=== PATIENT | female | born 1965 | race Caucasian/White ===

== ENCOUNTER 2017-02-07 09:44 | Emergency (ER) | payer MEDICARE, OTHER ==
--- NOTE | 2017-02-07 10:19 | ED ---
URI HPI - General Chief Complaint: Upper Respiratory Infection Stated Complaint: sore throat, coughing, chest congestion Time Seen by Provider: 02/07/17 10:07 Source: patient Mode of arrival: ambulatory Limitations: no limitations - History of Present Illness Initial Comments: The patient is a 51-year-old female with a significant history of COPD and pulmonary hypertension who presents with a chief complaint of cough and congestion 3 weeks. Patient was seen by her primary care physician who did not prescribe any medications. Patient returns today for continuation of her symptoms. She cannot identify any inciting incidents. The patient continues to smoke half pack a day. There are no aggravating or alleviating factors. The patient states her symptoms are worse at night when she lays down, as she states that she coughs more. Patient states that her throat is raw from coughing. - Related Data Home Medications Medication Instructions Recorded Confirmed ALPRAZolam 1 mg PO TID PRN 11/17/13 02/07/17 Bisoprol/Hydrochlorothiazide [Ziac 1 tab PO DAILY 11/17/13 02/07/17 10-6.25 MG] FLUoxetine HCL 80 mg PO DAILY 11/17/13 02/07/17 Levothyroxine Sodium [Synthroid] 88 mcg PO DAILY 11/17/13 02/07/17 Methadone [Dolophine] 30 mg PO Q8HR 11/17/13 02/07/17 Simvastatin [Zocor] 20 mg PO QAM 11/17/13 02/07/17 amLODIPine BESYLATE [Norvasc] 10 mg PO DAILY 11/17/13 02/07/17 metFORMIN HCL [Glucophage Xr] 500 mg PO BID 11/17/13 02/07/17 Albuterol Inhaler [Ventolin Hfa 2 puff INHALATION RT-Q6H PRN 04/10/15 02/07/17 Inhaler] Albuterol Nebulized [Ventolin 2.5 mg INHALATION RT-Q4H PRN 04/10/15 02/07/17 Nebulized] Budesonide [Pulmicort Flexhaler] 2 puff INHALATION RT-BID 04/10/15 02/07/17 Cyclobenzaprine [Flexeril] 10 mg PO TID PRN 02/07/17 02/07/17 oxyCODONE HCL/ACETAMINOPHEN 1 tab PO BID 02/07/17 02/07/17 [Percocet 10-325 mg] Previous Rx's Medication Instructions Recorded Azithromycin 250 mg PO DAILY #6 tab 02/07/17 predniSONE 50 mg PO DAILY #5 tablet 02/07/17 Allergies Allergy/AdvReac Type Severity Reaction Status Date / Time No Known Allergies Allergy Verified 02/07/17 10:16 Review of Systems ROS Statement: Those systems with pertinent positive or pertinent negative responses have been documented in the HPI. ROS Other: All systems not noted in ROS Statement are negative. Constitutional: Denies: fever, chills Eyes: Denies: vision change ENT: Reports: throat pain Respiratory: Reports: cough, dyspnea Cardiovascular: Denies: chest pain, dyspnea on exertion Endocrine: Denies: fatigue Gastrointestinal: Reports: vomiting (Posttussive). Denies: abdominal pain, nausea Genitourinary: Denies: dysuria Musculoskeletal: Denies: joint swelling Skin: Denies: rash Neurological: Denies: headache, weakness Past Medical History Past Medical History: Asthma, COPD, Hypertension Additional Past Medical History / Comment(s): pulmonary hypertension History of Any Multi-Drug Resistant Organisms: MRSA Date of last positivie culture/infection: 12/06/15 MDRO Source:: Right Axilla Past Surgical History: Orthopedic Surgery Additional Past Surgical History / Comment(s): tubal pregnancies Past Anesthesia/Blood Transfusion Reactions: No Reported Reaction Past Psychological History: No Psychological Hx Reported Smoking Status: Current every day smoker Past Alcohol Use History: None Reported Past Drug Use History: None Reported - Past Family History Sister(s) Family Medical History: Deep Vein Thrombosis (DVT) Father History Unknown: Yes Family Medical History: Coronary Artery Disease (CAD), CVA/TIA Mother History Unknown: Yes General Exam Limitations: no limitations General appearance: alert, in no apparent distress Head exam: Present: atraumatic, normocephalic Eye exam: Present: normal appearance ENT exam: Present: normal exam, mucous membranes moist, other (Patient has postnasal drip and erythema in the oropharynx. There are no tonsillar exudates or plaques.) Respiratory exam: Present: normal lung sounds bilaterally (There are no wheezes present, COPD is not likely active. There is good air movement throughout all lung powell) Cardiovascular Exam: Present: regular rate, normal rhythm, normal heart sounds GI/Abdominal exam: Present: soft. Absent: distended, tenderness Rectal exam: Present: deferred Extremities exam: Present: normal inspection Neurological exam: Present: alert, oriented X3, CN II-XII intact, normal gait Psychiatric exam: Present: normal affect, normal mood Skin exam: Present: warm, dry, intact Course Vital Signs 02/07/17 09:56 Temperature 97.0 F L Pulse Rate 83 Respiratory 20 Rate Blood Pressure 122/85 O2 Sat by Pulse 97 Oximetry Medical Decision Making - Medical Decision Making Patient presents with a chief complaint of cough and congestion 3 weeks. Patient has a significant history of COPD, and pulmonary hypertension. At this time, patient admits to a change in sputum color, she states it is now green. Given the duration of symptoms, the patient will be sent for a chest x-ray. On initial evaluation, vital signs are stable, patient does not admit to any exertional shortness of breath or chest pain. 11:05 AM Chest x-ray shows a left lung opacity that may reflect old scarring, atelectasis or possible pneumonia. Given lack of constitutional symptoms, I think this is less likely pneumonia however I instructed the patient that she should follow-up on this finding with a repeat x-ray in 6 weeks. At this time, patient is stable for discharge. All of her questions are answered to the best of my ability, she was prescribed a Z-Regis, prednisone for 5 days. She is instructed to follow up with primary care, or to return to the emergency department if her symptoms worsen or change in anyway. Disposition Clinical Impression: Bronchitis Disposition: HOME SELF-CARE Condition: Good Instructions: Upper Respiratory Infection (ED) Prescriptions: Azithromycin 250 mg PO DAILY #6 tab predniSONE 50 mg PO DAILY #5 tablet Referrals: Shahid Alamo MD [Primary Care Provider] - 1-2 days
--- NOTE | 2017-02-07 10:45 | XR ---
EXAMINATION TYPE: XR chest 2V DATE OF EXAM: 02/07/2017 COMPARISON: Prior chest x-ray 04/10/2015 HISTORY: Cough, pain, hypertension TECHNIQUE: Frontal and lateral views of the chest are obtained. FINDINGS: Patient is rotated toward the right. No pneumothorax, or pleural effusion. Some improvemen t in aeration noted at the left lung base. The heart is enlarged. Postop change noted to the left april ulder. IMPRESSION: Findings in the left lung base may be residual from prior inflammatory change, there may be scarring, atelectasis, correlate to exclude pneumonia. Follow-up is recommended. Heart size may b e accentuated by rotation.
[2017-02-07 11:19] VITALS: BP 129/60; PULSE 82; TEMP 98.3
[2017-02-07 11:20] VITALS: RESP 20
== END 2017-02-07 11:21 | disposition home or self-care (01) ==
LOC: EC 09:44
DX: J44.9 Chronic obstructive pulmonary disease, unspecified (principal); I10 Essential (primary) hypertension; F17.200 Nicotine dependence, unspecified, uncomplicated; Z86.14 Personal history of Methicillin resistant Staphylococcus aureus infection; Z79.84 Long term (current) use of oral hypoglycemic drugs; Z79.51 Long term (current) use of inhaled steroids; Z79.899 Other long term (current) drug therapy
CPT/HCPCS: 71020; 99283

== ENCOUNTER 2017-09-08 10:28 | Emergency (ER) | payer MEDICARE, OTHER ==
[2017-09-08 10:47] VITALS: BP 124/77; PULSE 77; RESP 16; TEMP 98.2
--- NOTE | 2017-09-08 11:15 | ED ---
General Adult HPI - General Chief complaint: Skin/Abscess/Foreign Body Stated complaint: Eye swelling, poss spider bite Time Seen by Provider: 09/08/17 10:49 Source: patient, RN notes reviewed Mode of arrival: ambulatory Limitations: no limitations - History of Present Illness Initial comments: Patient 52-year-old female presenting to the emergency room today with a chief complaint of abscess located to the forehead. Patient does admit that she was plucking her eyebrows and the other day. Noticed some redness locally to the forehead area and now over the left eye today. Denies any other complaints or symptoms. Patient denies any recent fever, chills, shortness of breath, chest pain, back pain, abdominal pain, nausea or vomiting, numbness or tingling, headaches or visual changes, or any other complaints. - Related Data Home Medications Medication Instructions Recorded Confirmed ALPRAZolam 1 mg PO TID PRN 11/17/13 03/07/17 Bisoprol/Hydrochlorothiazide [Ziac 1 tab PO DAILY 11/17/13 03/07/17 10-6.25 MG] FLUoxetine HCL 80 mg PO DAILY 11/17/13 03/07/17 Levothyroxine Sodium [Synthroid] 88 mcg PO DAILY 11/17/13 03/07/17 Methadone [Dolophine] 30 mg PO Q8HR 11/17/13 03/07/17 Simvastatin [Zocor] 20 mg PO QAM 11/17/13 03/07/17 amLODIPine BESYLATE [Norvasc] 10 mg PO DAILY 11/17/13 03/07/17 metFORMIN HCL [Glucophage Xr] 500 mg PO BID 11/17/13 03/07/17 Albuterol Inhaler [Ventolin Hfa 2 puff INHALATION RT-Q6H PRN 04/10/15 03/07/17 Inhaler] Albuterol Nebulized [Ventolin 2.5 mg INHALATION RT-Q4H PRN 04/10/15 03/07/17 Nebulized] Budesonide [Pulmicort Flexhaler] 2 puff INHALATION RT-BID 04/10/15 03/07/17 Cyclobenzaprine [Flexeril] 10 mg PO TID PRN 02/07/17 03/07/17 oxyCODONE HCL/ACETAMINOPHEN 1 tab PO BID 02/07/17 03/07/17 [Percocet 10-325 mg] Previous Rx's Medication Instructions Recorded Levofloxacin [Levaquin] 750 mg PO DAILY #10 tab 03/07/17 Sulfamethox-Tmp 800-160Mg [Bactrim 1 tab PO Q12HR #20 tab 09/08/17 DS 800-160 mg] Allergies Allergy/AdvReac Type Severity Reaction Status Date / Time No Known Allergies Allergy Verified 09/08/17 10:47 Review of Systems ROS Statement: Those systems with pertinent positive or pertinent negative responses have been documented in the HPI. ROS Other: All systems not noted in ROS Statement are negative. Past Medical History Past Medical History: Asthma, COPD, Hypertension, Thyroid Disorder Additional Past Medical History / Comment(s): pulmonary hypertension, emphysema History of Any Multi-Drug Resistant Organisms: MRSA Date of last positivie culture/infection: 12/06/15 MDRO Source:: Right Axilla Past Surgical History: Orthopedic Surgery Additional Past Surgical History / Comment(s): tubal pregnancies Past Anesthesia/Blood Transfusion Reactions: No Reported Reaction Past Psychological History: Anxiety, Depression Smoking Status: Current every day smoker Past Alcohol Use History: None Reported Past Drug Use History: None Reported - Past Family History Sister(s) Family Medical History: Deep Vein Thrombosis (DVT) Father History Unknown: Yes Family Medical History: Coronary Artery Disease (CAD), CVA/TIA Mother History Unknown: Yes General Exam - General Exam Comments Initial Comments: General: The patient is awake and alert, in no distress, and does not appear acutely ill. Eye: Pupils are equal, round and reactive to light, extra-ocular movements are intact. No nystagmus. There is normal conjunctiva bilaterally. No signs of icterus. Ears, nose, mouth and throat: There are moist mucous membranes and no oral lesions. Neck: The neck is supple, there is no tenderness or JVD. Musculoskeletal: Normal ROM, no tenderness. Strength 5/5. Sensation intact. Pulses equal bilaterally 2+. Neurological: A&O x 3. CN II-XII intact, There are no obvious motor or sensory deficits. Coordination appears grossly intact. Speech is normal. Skin: Patient does have small abscess located to the middle forehead. There is mild swelling above the left eye. No fluctuant head. Scabbed area centrally. Psychiatric: Cooperative, appropriate mood & affect, normal judgment. Limitations: no limitations Course Vital Signs 09/08/17 10:44 Temperature 98.2 F Pulse Rate 77 Respiratory 16 Rate Blood Pressure 124/77 O2 Sat by Pulse 95 Oximetry Medical Decision Making - Medical Decision Making 52-year-old female presenting to the emergency room for abscess to the middle forehead. No tenderness with extraocular eye movements. Patient be started on antibiotics. Advised to use warm compresses. Advised return to emergency room for new concerns. Disposition Clinical Impression: Abscess Disposition: HOME SELF-CARE Condition: Good Instructions: Abscess (ED) Additional Instructions: Please use warm compresses to the affected area. Please use antibiotic as prescribed. Please return to emergency room symptoms increase or worsen or for any other concerns as discussed. Prescriptions: Sulfamethox-Tmp 800-160Mg [Bactrim DS 800-160 mg] 1 tab PO Q12HR #20 tab Is patient prescribed a controlled substance at d/c from ED?: No Referrals: Shahid Alamo MD [Primary Care Provider] - 1-2 days Time of Disposition: 11:14
== END 2017-09-08 11:44 | disposition home or self-care (01) ==
LOC: EC 10:28
DX: L02.01 Cutaneous abscess of face (principal); J44.9 Chronic obstructive pulmonary disease, unspecified; I10 Essential (primary) hypertension; I27.20 Pulmonary hypertension, unspecified; E07.9 Disorder of thyroid, unspecified; F32.9 Major depressive disorder, single episode, unspecified; F17.200 Nicotine dependence, unspecified, uncomplicated; Z86.14 Personal history of Methicillin resistant Staphylococcus aureus infection; Z79.891 Long term (current) use of opiate analgesic; Z79.84 Long term (current) use of oral hypoglycemic drugs; Z79.51 Long term (current) use of inhaled steroids
CPT/HCPCS: 99282

== ENCOUNTER → 2017-10-30 | Outpatient (CLI) | payer MEDICARE, OTHER ==
--- NOTE | 2017-10-31 14:14 | MM ---
Reason for exam: screening (asymptomatic). Last mammogram was performed 2 years and 3 months ago. History: Patient is postmenopausal. Took hormonal contraceptives for 5 years beginning at age 15. Physical Findings: A clinical breast exam by your physician is recommended on an annual basis and results should be correlated with mammographic findings. MG 3D Screening Mammo W/Cad Bilateral CC and MLO view(s) were taken. Prior study comparison: July 28, 2015, bilateral MG 3d diag mammo w/cad PENNY. There are scattered fibroglandular densities. Finding: There are typically benign round calcifications in the right breast. Asymmetric breast tissue in the left breast, stable. There is no discrete abnormality. ASSESSMENT: Benign, BI-RAD 2 RECOMMENDATION: Routine screening mammogram of both breasts in 1 year.
== END | disposition home or self-care (01) ==
LOC: RADMAMWWP 13:09
PROVIDERS: ATTEND Family Medicine
DX: Z12.31 Encounter for screening mammogram for malignant neoplasm of breast (principal)
CPT/HCPCS: 77063; 77067

== ENCOUNTER → 2018-05-15 | Outpatient (CLI) | payer MEDICARE, OTHER ==
--- NOTE | 2018-05-15 14:52 | MR ---
EXAMINATION TYPE: MR lumbar spine wo con DATE OF EXAM: 05/15/2018 COMPARISON: NONE HISTORY: Disc degeneration, Fall, Pain TECHNIQUE: T1 and T2 axial and sagittal images of the lumbar spine are submitted. FINDINGS: There is no abnormal signal seen within the visualized spinal cord or paraspinal soft tissu es. Atrophy of the paraspinal musculature noted. At T12-L1 no disc herniation or canal stenosis. No foraminal encroachment. At L1-2 there is there is degenerative disc disease. Minimal disc bulging but no focal herniation or canal stenosis. Mild facet arthropathy. No foraminal encroachment. At L2-3 there is severe degenerative disc disease with diffuse disc protrusion greater paracentrally and laterally to the left with moderate left foraminal encroachment and mild right foraminal encroach ment. Hypertrophic change facets contribute to mild central stenosis. At L3-4 there is facet arthropathy and broad-based central disc bulging. No Canal stenosis. Mild bila teral foraminal encroachment. At L4-5 there is mild to moderate degenerative disc disease with hypertrophic change of the facets an d ligamentum flavum. Circumferential disc bulging with borderline central stenosis and mild bilateral foraminal encroachment. At L5-S1 there is severe degenerative disc disease. There is facet arthropathy. There is mild bilater al foraminal encroachment. No discrete herniation or canal stenosis. IMPRESSION: 1. Multilevel degenerative disc disease and disc bulging with most marked findings at L2-L3. Disc bul ging or protrusion is most pronounced greater laterally to the left with moderate left foraminal encr oachment and mild right foraminal encroachment. There is mild central stenosis. 2. Mild to moderate degenerative disc disease and hypertrophic changes L4-L5 with disc bulging and ana rderline central stenosis. Mild bilateral foraminal encroachment. 3. Multilevel facet arthropathy.
== END | disposition home or self-care (01) ==
LOC: RADMRIMAIN 11:48
PROVIDERS: ATTEND Physician Assistant
DX: M48.061 Spinal stenosis, lumbar region without neurogenic claudication (principal); M51.26 Other intervertebral disc displacement, lumbar region; M51.36 Other intervertebral disc degeneration, lumbar region; M46.96 Unspecified inflammatory spondylopathy, lumbar region
CPT/HCPCS: 72148

== ENCOUNTER 2019-12-26 12:15 | Emergency (ER) | payer MEDICARE, OTHER ==
[2019-12-26 12:22] VITALS: BP 109/85; PULSE 115; RESP 20; TEMP 97.9
[2019-12-26] MEDS ORDERED: LIDOCAINE 1% INJ 10MG/ML (20 ML MDV) SQ ONE (12:29)
[2019-12-26] MEDS ORDERED: ACET/COD 300 MG/30 MG STARTER PACK 6 TAB BTL PO STA (12:56)
[2019-12-26] MEDS ORDERED: SULFAMETH-TMP DS STARTER PACK 2 TAB BTL PO STA (12:56)
--- NOTE | 2019-12-26 13:00 | ED ---
General Adult HPI - General Chief complaint: Skin/Abscess/Foreign Body Stated complaint: Arm Abcess Time Seen by Provider: 12/26/19 12:24 Source: patient, RN notes reviewed, old records reviewed Mode of arrival: ambulatory Limitations: no limitations - History of Present Illness Initial comments: Patient's 54-year-old female with a history of hydradenitis per edema. She presents emergency room today with 2 weeks of left axilla abscess. She's not been on antibiotics. It has not been draining at this time. She states she's previously had have his abscess was incised and drained. She denies any fevers or chills. - Related Data Home Medications Medication Instructions Recorded Confirmed ALPRAZolam 1 mg PO TID PRN 11/17/13 03/07/17 Bisoprol/Hydrochlorothiazide [Ziac 1 tab PO DAILY 11/17/13 03/07/17 10-6.25 MG] FLUoxetine HCL 80 mg PO DAILY 11/17/13 03/07/17 Levothyroxine Sodium [Synthroid] 88 mcg PO DAILY 11/17/13 03/07/17 Methadone [Dolophine] 30 mg PO Q8HR 11/17/13 03/07/17 Simvastatin [Zocor] 20 mg PO QAM 11/17/13 03/07/17 amLODIPine BESYLATE [Norvasc] 10 mg PO DAILY 11/17/13 03/07/17 metFORMIN HCL [Glucophage Xr] 500 mg PO BID 11/17/13 03/07/17 Albuterol Inhaler (Mhu) [Ventolin 2 puff INHALATION RT-Q6H PRN 04/10/15 03/07/17 Hfa Inhaler (Mhu)] Albuterol Nebulized [Ventolin 2.5 mg INHALATION RT-Q4H PRN 04/10/15 03/07/17 Nebulized] Budesonide [Pulmicort Flexhaler] 2 puff INHALATION RT-BID 04/10/15 03/07/17 Cyclobenzaprine [Flexeril] 10 mg PO TID PRN 02/07/17 03/07/17 oxyCODONE HCL/ACETAMINOPHEN 1 tab PO BID 02/07/17 03/07/17 [Percocet 10-325 mg] Previous Rx's Medication Instructions Recorded Levofloxacin [Levaquin] 750 mg PO DAILY #10 tab 03/07/17 Sulfamethox-Tmp 800-160Mg [Bactrim 1 tab PO Q12HR #20 tab 09/08/17 DS 800-160 mg] Acetaminophen-Codeine 300-30mg 1 tab PO Q6H PRN 3 Days #12 tablet 12/26/19 [Tylenol w/codeine #3] Sulfamethox-Tmp 800-160Mg [Bactrim 2 tab PO Q12HR #40 tab 12/26/19 DS 800-160 mg] Allergies Allergy/AdvReac Type Severity Reaction Status Date / Time No Known Allergies Allergy Verified 12/26/19 12:23 Review of Systems ROS Statement: Those systems with pertinent positive or pertinent negative responses have been documented in the HPI. ROS Other: All systems not noted in ROS Statement are negative. Past Medical History Past Medical History: Asthma, COPD, Hypertension, Thyroid Disorder Additional Past Medical History / Comment(s): pulmonary hypertension, emphysema History of Any Multi-Drug Resistant Organisms: MRSA Date of last positivie culture/infection: 12/06/15 MDRO Source:: Right Axilla Past Surgical History: Orthopedic Surgery Additional Past Surgical History / Comment(s): tubal pregnancies Past Anesthesia/Blood Transfusion Reactions: No Reported Reaction Past Psychological History: Anxiety, Depression Smoking Status: Current every day smoker Past Alcohol Use History: None Reported Past Drug Use History: None Reported - Past Family History Sister(s) Family Medical History: Deep Vein Thrombosis (DVT) Father History Unknown: Yes Family Medical History: Coronary Artery Disease (CAD), CVA/TIA Mother History Unknown: Yes General Exam - General Exam Comments Initial Comments: Alert and oriented 54-year-old female. No significant distress. Limitations: no limitations General appearance: alert, in no apparent distress Head exam: Present: atraumatic, normocephalic, normal inspection Eye exam: Present: normal appearance, PERRL, EOMI. Absent: scleral icterus, conjunctival injection, periorbital swelling ENT exam: Present: normal exam, mucous membranes moist Neck exam: Present: normal inspection. Absent: tenderness, meningismus, lymphadenopathy Respiratory exam: Present: normal lung sounds bilaterally. Absent: respiratory distress, wheezes, rales, rhonchi, stridor Cardiovascular Exam: Present: regular rate, normal rhythm, normal heart sounds. Absent: systolic murmur, diastolic murmur, rubs, gallop, clicks GI/Abdominal exam: Present: soft, normal bowel sounds. Absent: distended, t enderness, guarding, rebound, rigid Extremities exam: Present: normal inspection, full ROM, normal capillary refill, other (Patient has a palpable 4 cm abscess over the left axilla, fluctuance at the center.). Absent: tenderness, pedal edema, joint swelling, calf tenderness Back exam: Present: normal inspection, full ROM Neurological exam: Present: alert, oriented X3, CN II-XII intact Psychiatric exam: Present: normal affect, normal mood Skin exam: Present: warm, dry, intact, normal color. Absent: rash Course Vital Signs 12/26/19 12:20 Temperature 97.9 F Pulse Rate 115 H Respiratory 20 Rate Blood Pressure 109/85 O2 Sat by Pulse 97 Oximetry Procedures - Incision & Drainage Indication: abscess Site: other (left axilla) Size (cm): 4 Anesthetic Used: lidocaine 1% Amount (mLs): 10 I&D Cleaning Method: Iodine Sterile Field Used?: Yes Scalpel Used: #11 I&D Drainage Obtained: Pus, Blood Packing: Iodoform Culture Obtained?: Yes Patient Tolerated Procedure: well, no complications Medical Decision Making - Medical Decision Making Patient is a 54-year-old female presents return today for abscess of her left axilla for the past 2 weeks. Patient had incision and drainage partially 10 mL of renal fluid was removed and pockets were loculated. The wound was packed with iodoform. Wound culture obtained. Patient started on Bactrim and given a short course of pain medication. Discussed falling up with PCP for wound care management have the drain removed in 2 days to 3. Disposition Clinical Impression: Abscess of left axilla Disposition: HOME SELF-CARE Condition: Good Instructions (If sedation given, give patient instructions): Abscess Incision and Drainage (ED) Additional Instructions: Follow-up with PCP to have recheck on Sunday to have the drainage and packing removed. Take antibiotics as prescribed. Return to ED if any alarming signs or symptoms occur. Prescriptions: Sulfamethox-Tmp 800-160Mg [Bactrim DS 800-160 mg] 2 tab PO Q12HR #40 tab Acetaminophen-Codeine 300-30mg [Tylenol w/codeine #3] 1 tab PO Q6H PRN 3 Days #12 tablet PRN Reason: Pain Is patient prescribed a controlled substance at d/c from ED?: Yes If prescribed controlled substance>3 days was MAPS reviewed?: Prescribed <3 Days If opioid is for acute pain is fill amount 7 days or less?: Yes If Rx opioid, was Start Talking consent form obtained?: Yes Referrals: Shahid Alamo MD [Primary Care Provider] - 1-2 days Time of Disposition: 12:57
== END 2019-12-26 13:06 | disposition home or self-care (01) ==
LOC: EC 12:15
DX: L02.412 Cutaneous abscess of left axilla (principal); I10 Essential (primary) hypertension; J44.9 Chronic obstructive pulmonary disease, unspecified; E07.9 Disorder of thyroid, unspecified; F41.9 Anxiety disorder, unspecified; F32.9 Major depressive disorder, single episode, unspecified; F17.200 Nicotine dependence, unspecified, uncomplicated; Z79.51 Long term (current) use of inhaled steroids; Z79.899 Other long term (current) drug therapy; Z79.890 Hormone replacement therapy; Z79.84 Long term (current) use of oral hypoglycemic drugs
CPT/HCPCS: 87070; 87205; 99283; 10060; J2001

== ENCOUNTER → 2021-03-15 | Outpatient (CLI) | payer MEDICARE, OTHER ==
--- NOTE | 2021-03-15 09:06 | CT ---
EXAMINATION TYPE: CT brain wo con DATE OF EXAM: 03/15/2021 COMPARISON: None HISTORY: 55-year-old female R55, Fall with LOC x 2 within the last 10 days TECHNIQUE: Examination was done in axial plane without intravenous contrast. Coronal and sagittal r econstructions performed. CT DLP: 961.00 mGycm Automated exposure control for dose reduction was used. FINDINGS: There is no evidence of acute intracranial hemorrhage, acute ischemic changes, mass, mass-effect, or extra-axial fluid collection. There is no effacement of cerebral sulci or basal subarachnoid cister ns. There is no midline shift. Rodriguez-white matter distinction is preserved. Old lacunar infarcts in the bilateral caudate heads and also anterior basal ganglia on both sides. Mild ventricular prominence likely secondary to central atrophy. Mild patchy white matter hypodensities in the periventricular deep white matter regions of both hemis pheres. Mild mucosal thickening posterior wall of right sphenoid sinus. Otherwise, visualized paranasal sinus es and mastoid air cells well pneumatized. Orbits and globes are intact. IMPRESSION: 1. Mild central cerebral atrophy and moderate burden of chronic small vessel ischemic disease. Old la cunar infarcts in the bilateral basal ganglia. 2. No acute intracranial abnormality seen.
== END | disposition home or self-care (01) ==
LOC: RADCTMAIN 06:54
PROVIDERS: ATTEND Internal Medicine
DX: I67.82 Cerebral ischemia (principal); G31.9 Degenerative disease of nervous system, unspecified; W19.XXXA Unspecified fall, initial encounter
CPT/HCPCS: 70450

== ENCOUNTER → 2021-06-28 | Outpatient (CLI) | payer MEDICARE, OTHER ==
--- NOTE | 2021-06-28 17:52 | US ---
EXAMINATION TYPE: US carotid duplex BILAT DATE OF EXAM: 06/28/2021 COMPARISON: NONE CLINICAL HISTORY: 55-year-old female Z86.73 personal hx of TIA. Hx of stroke. Current smoker. Hx hype rtension, dizziness. TECHNIQUE: Carotid duplex ultrasound examination. Indirect Doppler criteria was utilized. FINDINGS: EXAM MEASUREMENTS: RIGHT: Peak Systolic Velocity (PSV) cm/sec ----- Right CCA: 70.7 ----- Right ICA: 86.6 ----- Right ECA: 84.9 ICA/CCA ratio: 1.2 RIGHT: End Diastole cm/sec ----- Right CCA: 22.3 ----- Right ICA: 30.8 ----- Right ECA: 20.3 LEFT: Peak Systolic Velocity (PSV) cm/sec ----- Left CCA: 87.5 ----- Left ICA: 123.3 ----- Left ECA: 130.2 ICA/CCA ratio: 1.4 LEFT: End Diastole cm/sec ----- Left CCA: 20.3 ----- Left ICA: 37.9 ----- Left ECA: 11.0 VERTEBRALS (direction of flow): Right Vertebral: Antegrade Left Vertebral: Antegrade Rhythm: Arrhythmia Keg Inspector notes: Plaque seen within bilateral bulbs and prox bifurcations. Left ICA appears to be t ortuous, limited evaluation. Slightly elevated velocity within left ECA. Incidental finding: heterogeneous right thyroid lobe. IMPRESSION: Moderate atherosclerotic change at both bifurcations. No hemodynamically significant internal carotid artery stenosis on either side. Note that the scallop cutter machine indicates encountering a nonregular cardiac rhythm. Clinically correlate. Criteria for Assigning % of Stenosis / Diameter reduction (Estimation based on the indirect measurements of the internal carotid artery velocities (ICA PSV). 1. Normal (no stenosis)=ICA PSV < 125 cm/s: ratio < 2.0: ICA EDV<40 cm/s. 2. Less than 50% stenosis=ICA PSV < 125 cm/s: ratio < 2.0: ICA EDV<40 cm/s. 3. 50 to 69% stenosis=ICA PSV of 125 to 230 cm/s: ration 2.0 ? 4.0: ICA EDV 40-100 cm/s. 4. Greater than 70% stenosis to near occlusion= ICA PSV > 230 cm/s: ratio > 4.0: ICA EDV > 100 cm/s. 5. Near occlusion= ICA PSV velocities may be low or undetectable: variable ratio and ICA EDV. 6. Total occlusion=unable to detect flow.
== END | disposition home or self-care (01) ==
LOC: RADUSWWP 13:02
PROVIDERS: ATTEND Psychiatry & Neurology Neurology
DX: I65.23 Occlusion and stenosis of bilateral carotid arteries (principal); Z86.73 Personal history of transient ischemic attack (TIA), and cerebral infarction without residual deficits
CPT/HCPCS: 93880

== ENCOUNTER 2021-11-29 12:02 | Inpatient (IN) | payer MEDICARE, OTHER ==
[2021-11-29] MEDS ORDERED: IPRATROPIUM-ALBUTEROL 3 ML NEB INHALATION STA (12:37)
--- NOTE | 2021-11-29 12:50 | XR ---
EXAMINATION TYPE: XR chest 2V DATE OF EXAM: 11/29/2021 COMPARISON: Chest x-ray 03/07/2017 HISTORY: Difficulty breathing, hemoptysis TECHNIQUE: Frontal and lateral views of the chest are obtained. FINDINGS: There is prominence of the central vascularity, abnormal density present at the right lung base obscures right hemidiaphragm. Patient is rotated. No evident pneumothorax. Difficult to exclud e minimal effusion. The cardiac silhouette size is enlarged. Perihilar vascular indistinctness is no cele. The osseous structures are intact, postop change noted to the left shoulder. There are overlying leads. IMPRESSION: Correlate for possible congestive heart failure, pulmonary venous hypertension and early interstitial edema. Pneumonia not excluded. Follow-up is recommended.
[2021-11-29 12:53] LABS: Anisocytosis Slight; Basophils # (A) 0.1 k/uL (0-0.2); Basophils % (A) 1 %; Eosinophils # (A) 0.1 k/uL (0-0.7); Eosinophils % (A) 1 %; HCT 46.3 % (34.0-46.0); HGB 13.6 gm/dL (11.4-16.0); Hypochromasia Marked; Lymphocytes # (A) 1.3 k/uL (1.0-4.8); Lymphocytes % (A) 11 %; MCH 26.1 pg (25.0-35.0); MCHC 29.5 g/dL (31.0-37.0); MCV 88.7 fL (80.0-100.0); Mean Platelet Volume 7.6; Monocytes # (A) 0.8 k/uL (0-1.0); Monocytes % (A) 7 %; Neutrophils # (A) 9.6 k/uL (1.3-7.7); Neutrophils % (A) 79 %; Platelet Count 289 k/uL (150-450); RBC 5.22 m/uL (3.80-5.40); RDW 16.9 % (11.5-15.5)
--- NOTE | 2021-11-29 13:14 | ED ---
SOB HPI - General Chief Complaint: Shortness of Breath Stated Complaint: KVNG Time Seen by Provider: 11/29/21 12:15 Source: patient Mode of arrival: wheelchair - History of Present Illness Initial Comments: 56-year-old female with past medical history of pulmonary fibrosis, COPD, hyp ertension presents to the emergency department with swelling with shortness of breath and swelling all over. States that his been going on for the past several weeks. She saw her primary care office who gave her antibiotics and steroids. We originally started helping her symptoms however now worse. 2 days ago she started coughing up bright red blood clots. Denies history of DVT or PE. No cardiac history. No history of any cardiac arrhythmias including A. fib. Is not on any anticoagulation. No fevers. No sick contacts. No other alleviating, precipitating or modifying factors - Related Data Home Medications Medication Instructions Recorded Confirmed ALPRAZolam 1 mg PO TID PRN 11/17/13 11/29/21 Bisoprolol/Hydrochlorothiazide 1 tab PO DAILY 11/17/13 11/29/21 [Ziac 10-6.25 MG] Albuterol Inhaler [Ventolin Hfa 2 puff INHALATION RT-Q6H PRN 04/10/15 11/29/21 Inhaler] Albuterol Nebulized [Ventolin 2.5 mg INHALATION RT-Q4H PRN 04/10/15 11/29/21 Nebulized] ARIPiprazole 5 mg PO DAILY 11/29/21 11/29/21 Fluticasone/Umeclidin/Vilanter 1 puff INHALATION RT-DAILY 11/29/21 11/29/21 [Treleamy Ellipta 100-62.5-25] Furosemide [Lasix] 20 mg PO AC-BID 11/29/21 11/29/21 Levothyroxine Sodium [Levo-T] 37.5 mcg PO DAILY 11/29/21 11/29/21 Levothyroxine Sodium [Synthroid] 50 mcg PO DAILY 11/29/21 11/29/21 Omeprazole [PriLOSEC] 20 mg PO BID 11/29/21 11/29/21 Potassium Chloride [Potassium 10 meq PO BID 11/29/21 11/29/21 Chloride ER] Topiramate [Topamax] 25 mg PO BID 11/29/21 11/29/21 Topiramate [Topamax] 50 mg PO BID 11/29/21 11/29/21 lamoTRIgine 200 mg PO DAILY 11/29/21 11/29/21 modafiniL [Provigil] 200 mg PO DAILY 11/29/21 11/29/21 rOPINIRole HCL [Requip] 0.5 mg PO HS 11/29/21 11/29/21 Previous Rx's Medication Instructions Recorded Apixaban [Eliquis] 5 mg PO BID 30 Days #70 tab 12/01/21 Allergies Allergy/AdvReac Type Severity Reaction Status Date / Time No Known Allergies Allergy Verified 11/29/21 13:05 Review of Systems ROS Statement: Those systems with pertinent positive or pertinent negative responses have been documented in the HPI. ROS Other: All systems not noted in ROS Statement are negative. Past Medical History Past Medical History: Asthma, COPD, Hypertension, Thyroid Disorder Additional Past Medical History / Comment(s): pulmonary hypertension, emphysema History of Any Multi-Drug Resistant Organisms: MRSA Date of last positivie culture/infection: 12/26/19 MDRO Source:: TISSUE Past Surgical History: Orthopedic Surgery Additional Past Surgical History / Comment(s): tubal pregnancies Past Anesthesia/Blood Transfusion Reactions: No Reported Reaction Past Psychological History: Anxiety, Depression Smoking Status: Current every day smoker Past Alcohol Use History: None Reported Past Drug Use History: None Reported - Past Family History Sister(s) Family Medical History: Deep Vein Thrombosis (DVT) Father History Unknown: Yes Family Medical History: Coronary Artery Disease (CAD), CVA/TIA Mother History Unknown: Yes General Exam General appearance: alert, anxious, other (pale, mottled, diaphoretic) Head exam: Present: atraumatic, normocephalic, normal inspection Eye exam: Present: normal appearance, PERRL, EOMI. Absent: scleral icterus, conjunctival injection, periorbital swelling ENT exam: Present: normal exam, mucous membranes moist Neck exam: Present: normal inspection. Absent: tenderness, meningismus, lymphadenopathy Respiratory exam: Present: wheezes, accessory muscle use, other (tachypnia). Absent: respiratory distress, rales, rhonchi, stridor Cardiovascular Exam: Present: tachycardia, irregular rhythm, normal heart sounds. Absent: systolic murmur, diastolic murmur, rubs, gallop, clicks GI/Abdominal exam: Present: soft, normal bowel sounds. Absent: distended, tenderness, guarding, rebound, rigid Extremities exam: Present: normal inspection, full ROM, normal capillary refill. Absent: tenderness, pedal edema, joint swelling, calf tenderness Back exam: Present: normal inspection Neurological exam: Present: alert, oriented X3, CN II-XII intact Psychiatric exam: Present: normal affect, anxious Skin exam: Present: diaphoretic, pallor, mottled. Absent: rash Course Vital Signs 11/29/21 11/29/21 11/29/21 12:09 13:06 13:14 Temperature 99 F Pulse Rate 68 138 H 147 H Pulse Rate [ Pulse Oximetery ] Respiratory 20 26 H 18 Rate Blood Pressure 137/87 Blood Pressure [Left Arm] O2 Sat by Pulse 95 Oximetry 11/29/21 11/29/21 11/29/21 14:09 15:52 16:00 Temperature Pulse Rate 102 H 106 H Pulse Rate [ 110 H Pulse Oximetery ] Respiratory 22 22 Rate Blood Pressure 135/98 Blood Pressure [Left Arm] O2 Sat by Pulse 97 Oximetry 11/29/21 11/29/21 11/29/21 16:04 16:30 16:33 Temperature 99.7 F H Pulse Rate 104 H 104 H Pulse Rate [ Pulse Oximetery ] Respiratory 22 24 15 Rate Blood Pressure Blood Pressure 166/102 [Left Arm] O2 Sat by Pulse 96 Oximetry - Reevaluation(s) Reevaluation #1: Spoke with the radiologist in regards to the finding on CT 11/29/21 1448 Reevaluation #2: 11/29/[address] White in regards to the patient's care. I feel that the patient is an EKOS candidate. He is currently getting in touch with Dr. Chang and Dr. Christie for the procedure Reevaluation #3: 11/29/21 15:[address] Marcial who agreed to admit the patient into the ICU Medical Decision Making - Medical Decision Making Upon arrival patient was placed into room 1. Thorough history and physical was performed. She is placed on continuous pulse ox and cardiac monitoring. 12- lead EKG was obtained which demonstrates the patient is a new onset A. fib. Laboratory studies were conducted and the patient does have a chest x-ray performed. Laboratory studies are remarkable for a d-dimer of 2.75. Creatinine 1.2. Troponin is negative. BNP 4200. I am called to the room by the nurse notifying me that the patient's heart rate has increased to 205. She was placed on zoll heart monitor. We did give the patient 6 and 12 mg of adenosine for possible conversion to atrial tach. The patient does not have any improvement in control of her heart rate. She is then given a 15 mg dose of Cardizem and does have improvement in her heart rate down to 102. This does demonstrate atrial flutter. Patient is now stable for transfer to CT. CT is evaluated by myself and I did speak with radiologist which demonstrates extensive pulmonary embolism involving the bilateral main pulmonary arteries and bilateral segmental and subsegmental pulmonary arteries. There is infarct of the right lower lobe. Dilated right atrium. Small pleural effusion. I called and spoke with Dr. Duong requests stat echo. Spoke with Dr. Scott who does present to the emergency room to evaluate the patient. Also with Dr. Marcial for ICU admission. Patient remained hemodynamically stable and was taken to the ICU with a guarded prognosis. Patient will go for EKOS with Dr. Christie - Lab Data Result diagrams: 12/01/21 06:15 12/01/21 06:15 Lab Results 11/29/21 11/29/21 11/29/21 Range/Units 12:27 12:27 12:27 WBC 12.0 H (3.8-10.6) k/uL RBC 5.22 (3.80-5.40) m/uL Hgb 13.6 (11.4-16.0) gm/dL Hct 46.3 H (34.0-46.0) % MCV 88.7 (80.0-100.0) fL MCH 26.1 (25.0-35.0) pg MCHC 29.5 L (31.0-37.0) g/dL RDW 16.9 H (11.5-15.5) % Plt Count 289 (150-450) k/uL MPV 7.6 Neutrophils % 79 % Lymphocytes % 11 % Monocytes % 7 % Eosinophils % 1 % Basophils % 1 % Neutrophils # 9.6 H (1.3-7.7) k/uL Lymphocytes # 1.3 (1.0-4.8) k/uL Monocytes # 0.8 (0-1.0) k/uL Eosinophils # 0.1 (0-0.7) k/uL Basophils # 0.1 (0-0.2) k/uL Hypochromasia Marked Anisocytosis Slight PT 11.2 (9.0-12.0) sec INR 1.0 (<1.2) APTT 24.9 (22.0-30.0) sec D-Dimer 2.75 H (<0.60) mg/L FEU Sodium 137 (137-145) mmol/L Potassium 4.3 (3.5-5.1) mmol/L Chloride 102 (98-107) mmol/L Carbon Dioxide 26 (22-30) mmol/L Anion Gap 9 mmol/L BUN 26 H (7-17) mg/dL Creatinine 1.22 H (0.52-1.04) mg/dL Est GFR (CKD-EPI)AfAm 57 (>60 ml/min/1.73 sqM) Est GFR (CKD-EPI)NonAf 50 (>60 ml/min/1.73 sqM) Glucose 110 H (74-99) mg/dL Plasma Lactic Acid Amador (0.7-2.0) mmol/L Calcium 9.1 (8.4-10.2) mg/dL Magnesium 1.8 (1.6-2.3) mg/dL Total Bilirubin 1.0 (0.2-1.3) mg/dL AST 33 (14-36) U/L ALT 26 (4-34) U/L Alkaline Phosphatase 201 H (38-126) U/L Troponin I (0.000-0.034) ng/mL NT-Pro-B Natriuret Pep pg/mL Total Protein 6.8 (6.3-8.2) g/dL Albumin 4.0 (3.5-5.0) g/dL Coronavirus (PCR) (Not Detectd) Influenza Type A RNA (Not Detectd) Influenza Type B (PCR) (Not Detectd) 11/29/21 11/29/21 11/29/21 Range/Units 12:27 12:27 12:27 WBC (3.8-10.6) k/uL RBC (3.80-5.40) m/uL Hgb (11.4-16.0) gm/dL Hct (34.0-46.0) % MCV (80.0-100.0) fL MCH (25.0-35.0) pg MCHC (31.0-37.0) g/dL RDW (11.5-15.5) % Plt Count (150-450) k/uL MPV Neutrophils % % Lymphocytes % % Monocytes % % Eosinophils % % Basophils % % Neutrophils # (1.3-7.7) k/uL Lymphocytes # (1.0-4.8) k/uL Monocytes # (0-1.0) k/uL Eosinophils # (0-0.7) k/uL Basophils # (0-0.2) k/uL Hypochromasia Anisocytosis PT (9.0-12.0) sec INR (<1.2) APTT (22.0-30.0) sec D-Dimer (<0.60) mg/L FEU Sodium (137-145) mmol/L Potassium (3.5-5.1) mmol/L Chloride (98-107) mmol/L Carbon Dioxide (22-30) mmol/L Anion Gap mmol/L BUN (7-17) mg/dL Creatinine (0.52-1.04) mg/dL Est GFR (CKD-EPI)AfAm (>60 ml/min/1.73 sqM) Est GFR (CKD-EPI)NonAf (>60 ml/min/1.73 sqM) Glucose (74-99) mg/dL Plasma Lactic Acid Amador 1.6 (0.7-2.0) mmol/L Calcium (8.4-10.2) mg/dL Magnesium (1.6-2.3) mg/dL Total Bilirubin (0.2-1.3) mg/dL AST (14-36) U/L ALT (4-34) U/L Alkaline Phosphatase (38-126) U/L Troponin I <0.012 (0.000-0.034) ng/mL NT-Pro-B Natriuret Pep 4200 pg/mL Total Protein (6.3-8.2) g/dL Albumin (3.5-5.0) g/dL Coronavirus (PCR) (Not Detectd) Influenza Type A RNA (Not Detectd) Influenza Type B (PCR) (Not Detectd) 11/29/21 11/29/21 Range/Units 12:53 12:53 WBC (3.8-10.6) k/uL RBC (3.80-5.40) m/uL Hgb (11.4-16.0) gm/dL Hct (34.0-46.0) % MCV (80.0-100.0) fL MCH (25.0-35.0) pg MCHC (31.0-37.0) g/dL RDW (11.5-15.5) % Plt Count (150-450) k/uL MPV Neutrophils % % Lymphocytes % % Monocytes % % Eosinophils % % Basophils % % Neutrophils # (1.3-7.7) k/uL Lymphocytes # (1.0-4.8) k/uL Monocytes # (0-1.0) k/uL Eosinophils # (0-0.7) k/uL Basophils # (0-0.2) k/uL Hypochromasia Anisocytosis PT (9.0-12.0) sec INR (<1.2) APTT (22.0-30.0) sec D-Dimer (<0.60) mg/L FEU Sodium (137-145) mmol/L Potassium (3.5-5.1) mmol/L Chloride (98-107) mmol/L Carbon Dioxide (22-30) mmol/L Anion Gap mmol/L BUN (7-17) mg/dL Creatinine (0.52-1.04) mg/dL Est GFR (CKD-EPI)AfAm (>60 ml/min/1.73 sqM) Est GFR (CKD-EPI)NonAf (>60 ml/min/1.73 sqM) Glucose (74-99) mg/dL Plasma Lactic Acid Amador (0.7-2.0) mmol/L Calcium (8.4-10.2) mg/dL Magnesium (1.6-2.3) mg/dL Total Bilirubin (0.2-1.3) mg/dL AST (14-36) U/L ALT (4-34) U/L Alkaline Phosphatase (38-126) U/L Troponin I (0.000-0.034) ng/mL NT-Pro-B Natriuret Pep pg/mL Total Protein (6.3-8.2) g/dL Albumin (3.5-5.0) g/dL Coronavirus (PCR) Not Detected (Not Detectd) Influenza Type A RNA Not Detected (Not Detectd) Influenza Type B (PCR) Not Detected (Not Detectd) - EKG Data EKG Comments: EKG demonstrates A. fib with a rate of 143. QRS 102. QTC of 385. ST depressi on 2, 3, aVF as well as V4 through V6. ST elevation in aVR EKG done at 1402 demonstrates A. fib with a rate of 115. OH interval 132. QRS 102. QTC of 342 EKG done at 1404 demonstrates A. fib with a rate of 102. QRS 112. QTC of 409. ST depression 2, 3, aVF as well as V3 through V6 Critical Care Time Critical Care Time: Yes Critical Care Time: 45 minutes for management of new onset afib, possible svt, attemted conversion with adenosine, diagnosis of pe, consultation with medicine/icu/cardio for ekos Disposition Clinical Impression: Acute respiratory insufficiency, Pulmonary embolism, Atrial fibrillation with RVR Disposition: ADMITTED IP TO THIS HOSP Condition: Serious Is patient prescribed a controlled substance at d/c from ED?: No Time of Disposition: 15:15 Decision to Admit Reason: Admit from EC Decision Date: 11/29/21 Decision Time: 15:15
[2021-11-29 13:15] LABS: Calcium 9.1 mg/dL (8.4-10.2); Magnesium 1.8 mg/dL (1.6-2.3); Potassium 4.3 mmol/L (3.5-5.1); Total Protein 6.8 g/dL (6.3-8.2)
[2021-11-29 13:16] LABS: Partial Thromboplastin Time 24.9 sec (22.0-30.0); Prothrombin Time 11.2 sec (9.0-12.0)
[2021-11-29] MEDS ORDERED: DILTIAZEM DRIP BOLUS FROM BAG 1 MG SOLN IV ONE (13:52)
[2021-11-29] MEDS ORDERED: ADENOSINE 3 MG/ML 2 ML VIAL IVP STA ×2 (13:55→13:56)
[2021-11-29] MEDS: DILTIAZEM 125 MG in SODIUM CHLORIDE 0.9% 100 ML IV SCH ×2 (14:04→22:08)
[2021-11-29] MEDS ORDERED: HEPARIN SODIUM 1,000 UN/ML (10ML VL) IV ONE (14:37)
[2021-11-29] MEDS ORDERED: HEPARIN SODIUM 1,000 UN/ML (10ML VL) IV PRN (14:37)
--- NOTE | 2021-11-29 14:59 | CT ---
EXAMINATION TYPE: CT chest angio for PE CT DLP: 641.3 mGycm, Automated exposure control for dose reduction was used. DATE OF EXAM: 11/29/2021 2:42 PM COMPARISON: Chest radiograph 11/29/2021, CT chest 04/12/2015. CLINICAL INDICATION:Female, 56 years old with history of elevated d-dimer, hemoptysis; TECHNIQUE/CONTRAST: CTA scan of the thorax is performed with IV Contrast, patient injected with 100 mL of Isovue 370, pul monary embolism protocol. MIP images are created and reviewed. Coronal and sagittal reformats revie wed FINDINGS: Pulmonary Artery: There are multiple filling defects extending throughout the main pulmonary arteries bilaterally. There are multiple bilateral segmental and subsegmental pulmonary artery branches filli ng defects. The main pulmonary artery is dilated measuring up to 3.7 cm. Reflux of contrast into the IVC and hepatic veins. Lungs/Pleura: Small right pleural effusion. No pneumothorax. Bubbly lucencies and consolidation withi n a wedge-shaped appearance in the right lower lobe most consistent with a pulmonary infarct. Mild ce ntrilobular emphysematous changes. No suspicious pulmonary nodules. Airway: Large airways are patent. Heart: Moderately enlarged heart with flattening of the interventricular septum. Ventricular ratio is 1.2. Markedly dilated right atrium. Vasculature: No evidence of aortic aneurysm. Mediastinum: No gross evidence of adenopathy. Musculoskeletal: No acute osseous abnormalities. Orthopedic anchor is demonstrated within the left hu meral head. Soft Tissues: Unremarkable. Lower neck: No significant findings. Upper Abdomen: No significant findings. IMPRESSION: 1. Extensive pulmonary emboli burden involving the bilateral main pulmonary arteries and bilateral se gmental and subsegmental pulmonary arteries. 2. Associated pulmonary infarct of the right lower lobe. 3. Moderately enlarged heart with ventricular ratio 1.2 and markedly dilated right atrium. Findings a re consistent with right heart strain. 4. Small right pleural effusion. Findings called to and discussed with Dr. Elle Cha at 2:48 PM on 11/29/2021.
[2021-11-29] MEDS ORDERED: NALOXONE 0.4 MG/ML 1 ML VIAL IV PRN (15:15)
[2021-11-29] MEDS: HEPARIN SOD,PORK IN 0.45% NACL 25,000 UNIT in 0.45% NACL 1 250ML.BAG IV SCH ×5 (15:18→19:20)
[2021-11-29] MEDS ORDERED: ALPRAZolam 1 MG TAB PO PRN (15:32)
[2021-11-29] MEDS: methylPREDNISolone SOD SUCCI 125 MG/2 ML VIAL IV SCH ×2 (15:49→21:30)
[2021-11-29] MEDS: IPRATROPIUM-ALBUTEROL 3 ML NEB INHALATION SCH ×2 (15:52→19:59)
[2021-11-29 16:35] LABS: Glucose,Whole Blood 90 mg/dL (70-110)
[2021-11-29] MEDS ORDERED: ALTEPLASE 2 MG VIAL (CATHFLO) IV STA (17:44)
[2021-11-29] MEDS ORDERED: SODIUM CHLORIDE 0.9% 1,000 ML IV SCH ×3 (17:45)
--- NOTE | 2021-11-29 17:46 | HP ---
HISTORY AND PHYSICAL CHIEF COMPLAINTS: Shortness of breath. HISTORY OF PRESENT ILLNESS: This 56-year-old woman with a past medical history of multiple medical problems including: Asthma COPD, being followed by Dr. Parikh in the outpatient setting had shortness of breath for the past several days. Because of lack of improvement, patient came to [facility]. Patient was found to have tachycardia, possibly atrial fibrillation fast ventricular rate, rate more than 200. The patient was started on Cardizem with heart rate coming down to 110. The patient also had D-dimer elevated 2.[address] angio of the chest showed submassive pulmonary embolism. Patient admitted for evaluation and treatment after heparin being started. COVID 19 is negative. There is no history of fever, rigors, chills at this time. PAST MEDICAL HISTORY: History of asthma, COPD, hypertension. HOME MEDICATIONS: Reviewed and include: Topamax. Dose and rest of medication noted. ALLERGIES: None. FAMILY HISTORY: History of CVA, TIA. SOCIAL HISTORY: History of smoking. REVIEW OF SYSTEMS: Fourteen point review of systems is negative except as mentioned earlier. PHYSICAL EXAMINATION: Patient is extremely short of breath. Pulse 102, blood pressure is 135/98, respiration 22, temperature is 98 degrees, pulse ox 97 percent on 4 L. HEENT is conjunctivae normal. NECK is no JVD. acting. CARDIOVASCULAR: S1, S2 muffled. Tachycardic irregular. RESPIRATION: Breath sounds diminished in the bases. Bilateral scattered rhonchi and crackles. ABDOMEN: Soft, obese. LEGS: Bilateral leg edema and also some livedo reticularis also present. NERVOUS SYSTEM: No focal deficits. SKIN as mentioned. JOINTS: No active deforming arthropathy. LABS: WBC 12. D-dimer 2.75. CT angio and rest of the labs were personally reviewed. ASSESSMENT: 1. Acute submassive to massive pulmonary embolism with acute hypoxic respiratory failure. 2. Chronic obstructive pulmonary disease/asthma acute exacerbation. 3. Elevated D-dimer. 4. Hypertension. 5. Hypothyroidism. 6. History of pulmonary hypertension. 7. FULL CODE. 8. Atrial fibrillation, new onset, with fast ventricular rate. RECOMMENDATIONS AND DISCUSSION: In this 56-year-old woman who presented with multiple complex medical issues, we will monitor the patient closely. Recommend intensive bronchodilators and steroids and consult Pulmonary and Cardiology. ICU transfer. Possible heparin versus thrombolysis. Prognosis extremely guarded because of multiple complex medical issues. Further recommendations to follow. See orders for details. MMODL / IJN: [id number] / DAPHNE
[2021-11-29] MEDS ORDERED: SODIUM CHLORIDE 0.9% 500 ML 500 ML IV ONE (17:52)
[2021-11-29] MEDS ORDERED: LIDOCAINE 1% INJ 10MG/ML (30 ML VIAL-PF) SQ ONE (18:16)
[2021-11-29] MEDS ORDERED: MIDAZOLAM 2 MG/2 ML VIAL IV ONE (18:16)
[2021-11-29] MEDS ORDERED: fentaNYL (PF) 50 MCG/ML 2 ML AMP IV ONE (18:16)
[2021-11-29] MEDS: ALTEPLASE 10 MG in SODIUM CHLORIDE 0.9% 90 ML IV ONE ×6 (18:37→19:20)
[2021-11-29] MEDS: SODIUM CHLORIDE 0.9% 1,000 ML IV SCH ×4 (18:39→19:20)
[2021-11-29] MEDS: ALTEPLASE 2 MG VIAL (CATHFLO) IV STA ×2 (18:43→18:45)
--- NOTE | 2021-11-29 19:10 | P.PCN ---
Description of Procedure: PROCEDURES PERFORMED: Bilateral EKOS catheter placement and intraarterial TPA administration INDICATION: Submassive bilateral PE with right heart strain, pulmonary hypertension HISTORY: Patient is a pleasant 56-year-old female with a history of COPD/pulmonary fibrosis who has been having worsening shortness breath and some increased lower extremity swelling over the past 2 weeks. She had a mild amount of blood-tinged sputum however no hemoptysis, no clots. This was approximately 2 days ago. She also had note of a small size right lower lobe pulmonary infarct. RV to left ventricular size was noted to be 1.2 and echo showed right heart strain with pulmonary hypertension with RVSP 80 mmHg. Discussed risks of possible leading, vascular damage and discussed that if it's and patient is agreeable to EKOS placement. PROCEDURE: After the risks, benefits and alternatives of the above mentioned procedure explained in detail with the patient, informed consent was obtained. Patient was taken to the catheterization lab and prepped and draped in usual fashion. 1% lidocaine was used to anesthetize the right femoral area. 2 x 6- Serbian sheath was placed in the right femoral artery using modified Seldinger technique and ultrasound guidance. Next using a 5-Serbian FR4 catheter and a 0.035 stiff glide the FR4 catheter was advanced into the right and then left middle segmental pulmonary artery. The catheter was then exchanged for a 0.035 Amplatz Super Stiff wire. Next the EKOS catheter was then advanced into the right and then a second EKOS catheter was advanced into the left pulmonary artery. The EKOS device was advanced through the catheter and secured in place bilaterally. 2 mg TPA was administered through the catheter into the right and left pulmonary artery respectively. The patient tolerated the procedure well. Patient was transported back to the post catheterization holding area in stable condition. Conscious Sedation: Patient was monitored under the direct supervision of vision of myself for conscious sedation using Versed and fentanyl for a total duration of 33 minutes FINAL IMPRESSION: 1. Submassive bilateral PE status post bilateral EKOS catheter placement. PLAN: 1. Aggressive risk factor modification per most recent ACC/AHA guidelines. 2. Catheter directed TPA x 5 hrs and EKOS treatment.
[2021-11-29 19:47] LABS: Glucose,Whole Blood 151 mg/dL (70-110)
--- NOTE | 2021-11-29 20:45 | CONS ---
CONSULTATION This is a 56-year-old lady with history of pulmonary fibrosis, COPD, hypertension, who presented to hospital with progressively worsening shortness of breath for several days' duration. She was initially evaluated by her primary care physician and has been treated with antibiotics and steroids; since her symptoms were not getting better, she came to the hospital. Over the last two days she has had hemoptysis. There is no prior history of DVT or pulmonary embolism. She is not on any anticoagulant. On her initial presentation, the ER physician felt she was in atrial fibrillation with poorly controlled ventricular rate. Subsequently because of the worsening shortness of breath and the elevated D-dimer, she performed a CT scan of the chest that revealed extensive bilateral pulmonary embolism involving the main pulmonary arteries and segmental and subsegmental arteries. Right ventricle is moderately enlarged with evidence of right heart strain and there was also a pulmonary infarct in the right lobe. We were consulted for EKOS. Dr. Christie, the on-call cooking appliance repair technician, will perform this later this evening. At the time of my evaluation, patient appears comfortable at rest, does not seem to be in respiratory distress. She is tachycardic but hemodynamically stable otherwise. PAST MEDICAL HISTORY: Significant for severe COPD, pulmonary fibrosis and hypertension. MEDICATIONS: Medications at home include Topamax, Requip, K-Dur, Prilosec, Synthroid, Lasix, Ziac, Ventolin and Xanax. ALLERGIES: Allergies are CHARTED. FAMILY HISTORY: Negative for premature coronary artery disease. SOCIAL HISTORY: Negative for current smoking, ETOH abuse or drug abuse. REVIEW OF SYSTEMS: HEENT is unremarkable. CARDIAC: As described above. RESPIRATORY: As described above. GI: Negative. GENITOURINARY: Negative. ALLERGY/IMMUNOLOGY: Negative. SKIN: Negative. MUSCULOSKELETAL: Significant for arthritis. PSYCHOSOCIAL: Negative. DERMATOLOGY: Negative. CONSTITUTIONAL: Negative. ONCOLOGICAL: Negative. EMERGENCY MEDICINE: Negative. Rest of the system review is not relevant. PHYSICAL EXAMINATION: Comfortable at rest. Tachycardic with a heart rate of 105 beats per minute. Blood pressure is 134/92. Respiratory rate is 18. Chest exam reveals diminished air entry bilaterally with occasional rhonchi. Heart exam reveals first and second heart sounds. An S3 gallop is heard. Abdomen is soft. Examination of extremities reveals bilateral 1+ pitting edema. ASSESSMENT: Acute massive bilateral pulmonary embolism with evidence of right heart strain on the CT scan and the echocardiogram showing severe pulmonary hypertension. PLAN: Patient is currently on high-dose IV heparin. Dr. Christie will perform an EKOS on her later this afternoon. MMODL / IJN: [id number] /
[2021-11-29] MEDS ORDERED: NON FORMULARY DRUG (Topiramate [Topamax] 50 MG Tablet) PO SCH (21:00)
[2021-11-29 21:08] LABS: Anisocytosis Slight; Basophils % (A) 0 %; Eosinophils % (A) 0 %; HCT 44.8 % (34.0-46.0); HGB 13.6 gm/dL (11.4-16.0); Hypochromasia Marked; Lymphocytes % (A) 8 %; MCH 26.8 pg (25.0-35.0); MCHC 30.4 g/dL (31.0-37.0); MCV 88.2 fL (80.0-100.0); Mean Platelet Volume 7.3; Monocytes # (A) 0.4 k/uL (0-1.0); Monocytes % (A) 3 %; Neutrophils # (A) 11.3 k/uL (1.3-7.7); Neutrophils % (A) 88 %; Platelet Count 266 k/uL (150-450); RBC 5.08 m/uL (3.80-5.40); RDW 17.1 % (11.5-15.5); WBC 12.8 k/uL (3.8-10.6)
[2021-11-29 21:19] LABS: Calcium 9.3 mg/dL (8.4-10.2); Potassium 4.4 mmol/L (3.5-5.1)
[2021-11-29 21:20] LABS: INR 1.1 (<1.2); Prothrombin Time 11.5 sec (9.0-12.0)
[2021-11-29] MEDS: POTASSIUM CHLORIDE ER 10 MEQ TAB.ER.PRT PO SCH (21:30)
[2021-11-29] MEDS: PANTOPRAZOLE 40 MG TABLET PO SCH (21:30)
[2021-11-29] MEDS: TOPIRAMATE 25 MG TAB PO SCH (22:00)
[2021-11-29] MEDS: FUROSEMIDE 20 MG TAB PO SCH (22:07)
[2021-11-29] MEDS: HYDROmorphone 0.5 MG/0.5 ML SYRINGE IVP PRN (22:56)
[2021-11-30] MEDS: methylPREDNISolone SOD SUCCI 125 MG/2 ML VIAL IV SCH ×2 (03:13→08:07)
[2021-11-30] MEDS: HYDROmorphone 0.5 MG/0.5 ML SYRINGE IVP PRN ×3 (04:27→21:30)
[2021-11-30] MEDS: LEVOTHYROXINE 75 MCG TAB PO SCH (05:26)
[2021-11-30] MEDS: LEVOTHYROXINE 50 MCG TAB PO SCH (05:27)
[2021-11-30 07:51] LABS: Anisocytosis Slight; Basophils % (A) 0 %; Eosinophils % (A) 0 %; HCT 44.2 % (34.0-46.0); HGB 13.7 gm/dL (11.4-16.0); Hypochromasia Marked; Lymphocytes # (A) 1.4 k/uL (1.0-4.8); Lymphocytes % (A) 12 %; MCH 27.4 pg (25.0-35.0); MCHC 30.9 g/dL (31.0-37.0); MCV 88.6 fL (80.0-100.0); Mean Platelet Volume 8.1; Monocytes # (A) 0.3 k/uL (0-1.0); Monocytes % (A) 3 %; Neutrophils # (A) 9.5 k/uL (1.3-7.7); Neutrophils % (A) 84 %; Platelet Count 254 k/uL (150-450); RBC 4.98 m/uL (3.80-5.40); RDW 17.3 % (11.5-15.5); WBC 11.3 k/uL (3.8-10.6)
[2021-11-30 07:53] LABS: Albumin 3.9 g/dL (3.5-5.0); Calcium 9.1 mg/dL (8.4-10.2); Potassium 4.9 mmol/L (3.5-5.1); Total Bilirubin 0.9 mg/dL (0.2-1.3); Total Protein 6.6 g/dL (6.3-8.2)
[2021-11-30] MEDS ORDERED: NON FORMULARY DRUG (Fluticasone/Umeclidin/Vilanter [Trelegy Ellipta 100-62.5-25] 1 EACH Bl INHALATION SCH (08:00)
[2021-11-30 08:02] VITALS: BMI 36.2
[2021-11-30] MEDS: ARIPiprazole 5 MG TAB PO SCH (08:06)
[2021-11-30] MEDS: lamoTRIgine 100 MG TAB PO SCH (08:06)
[2021-11-30] MEDS: FUROSEMIDE 20 MG TAB PO SCH ×2 (08:06→16:36)
[2021-11-30] MEDS: PANTOPRAZOLE 40 MG TABLET PO SCH ×2 (08:06→20:07)
[2021-11-30] MEDS: TOPIRAMATE 25 MG TAB PO SCH ×2 (08:07→20:07)
[2021-11-30] MEDS: POTASSIUM CHLORIDE ER 10 MEQ TAB.ER.PRT PO SCH ×2 (08:07→20:07)
[2021-11-30] MEDS: IPRATROPIUM-ALBUTEROL 3 ML NEB INHALATION SCH ×4 (08:11→19:35)
[2021-11-30] MEDS: SYMBICORT 80-4.5 MCG INHALER INHALATION SCH (08:11)
[2021-11-30] MEDS ORDERED: BISOPROLOL-HCTZ 10-6.25 MG 1 EACH TAB PO SCH (09:00)
--- NOTE | 2021-11-30 09:41 | CA ---
Transthoracic Echo Report Name: Lili May Age: 56 Gender: F : 1965 Exam Date: 11/29/2021 16:28 Exam Location: [facility] Ht (in): 67 Wt (lb): 200 Ordering Physician: Elle Cha DO Attending/Referring Phys: [id number], Semaj Private Duty Aide Grace Guzman, RD Procedure CPT: Indications: massive PE Cardiac Hx: Technical Quality: Good Contrast 1: N/A Total Dose (mL): Contrast 2: Total Dose (mL): MEASUREMENTS (Male / Female) Normal Values 2D ECHO LV Diastolic Diameter PLAX 4.3 cm 4.2 - 5.9 / 3.9 - 5.3 cm LV Systolic Diameter PLAX 3.8 cm IVS Diastolic Thickness 1.4 cm 0.6 - 1.0 / 0.6 - 0.9 cm LVPW Diastolic Thickness 1.8 cm 0.6 - 1.0 / 0.6 - 0.9 cm LV Relative Wall Thickness 0.8 RV Internal Dim ED PLAX 5.1 cm LA Systolic Diameter LX 3.9 cm 3.0 - 4.0 / 2.7 - 3.8 cm M-MODE Aortic Root Diameter MM 3.0 cm LA Systolic Diameter MM 4.6 cm LA Ao Ratio MM 1.5 AV Cusp Separation MM 1.7 cm DOPPLER MV Area PHT 5.4 cm??? Mitral E Point Velocity 57.8 cm/s Mitral A Point Velocity 32.5 cm/s Mitral E to A Ratio 1.8 MV Deceleration Time 140.5 ms TR Peak Velocity 417.7 cm/s TR Peak Gradient 69.8 mmHg Right Ventricular Systolic Press 80.5 mmHg FINDINGS Left Ventricle Left ventricular ejection fraction is estimated at 50=55%. Right Ventricle Severe right ventricular dilatation. Severe pulmonary hypertension. Tapse 11.952 Right Atrium Normal right atrial size. Left Atrium Mildly increased left atrial diameter. Mitral Valve Structurally normal mitral valve. Mild mitral regurgitation. Aortic Valve Trileaflet aortic valve. Tricuspid Valve Structurally normal tricuspid valve. Severe tricuspid regurgitation. Pulmonic Valve Structurally normal pulmonic valve. Pericardium Small pericardial effusion. Aorta Normal size aortic root and proximal ascending aorta. CONCLUSIONS Severe right ventricular enlargement with RV strain severe tricuspid regurgitation and pulmonary hypertension LV systolic function is normal. Could be a trace pericardial effusion Previewed by: Dr. Eleazar Aviles MD (Electronically Signed) Final Date: 30 November 2021 09:41
--- NOTE | 2021-11-30 09:43 | P.PN ---
Subjective Progress Note Date: 11/30/21 She has a known history of pulmonary fibrosis COPD hypertension who presented to the ER with progressively worsening shortness of breath for several days, with hemoptysis 2 days ago. Her d-dimer was elevated, CT of the chest showed extensive bilateral pulmonary embolism involving the main pulmonary arteries and segmental in subsegmental arteries. Her right ventricular is moderately enlarged with evidence of right heart strain and there is also pulmonary infarct in the right lobe. Patient underwent EKOS with Dr. Christie yesterday. Patient EKG in the ER showed new onset atrial fibrillation. Today patient is resting comfortably in bed in no signs of acute distress on supplemental oxygen. She denies chest pain or worsening shortness of breath. Patient's sheaths are present in the right groin without hematoma. Ultrasound and sheaths will be removed today. Her left foot is cool, dusky, with a weak pulse, pulses found by Doppler. This occurred postoperatively and has no change. It is believed to be venous related. Will continue to monitor. Patient remains on a Cardizem drip. Patient sinus rhythm on the monitor. Will discontinue Cardizem drip and bisoprolol/HCTZ and start on Toprol-XL 25 mg. echocardiogram shows a normal LV function with an ejection fraction of 50-55% severe right ventricle dilation with right ventricular strain severe tricuspid regurgitation and with severe pulmonary hypertension Objective - Vital Signs Vital signs: Vital Signs Temp 96.6 F L 11/30/21 09:00 Pulse 67 11/30/21 09:00 Resp 9 L 11/30/21 09:00 BP 156/93 11/30/21 09:00 Pulse Ox 95 11/30/21 08:30 FiO2 Intake & Output 11/29/21 11/30/21 11/30/21 18:59 06:59 18:59 Intake Total 936.537 4806.500 85.0 Output Total 450 250 Balance 119.916 788.500 -165.0 Weight 90.718 kg 105 kg 105 kg Intake: IV 100 Intake, IV Titration 19.916 1238.500 85.0 Amount Alteplase 10 mg In Sodium 50 Chloride 0.9% 90 ml @ 1 MG/HR 10 mls/hr IV .Q10H ONE Rx#:[id number] Alteplase 10 mg In Sodium 50 Chloride 0.9% 90 ml @ 1 MG/HR 10 mls/hr IV .Q10H [facility] Rx#:[id number] Diltiazem 125 mg In 19.916 98.500 Sodium Chloride 0.9% 100 ml @ 10 MG/HR 10 mls/hr IV .[id number] COUNTS INCLUDE 234 BEDS AT THE [facility] Rx#: [id number] Heparin Sod,Pork in 0.45% 30.0 2.5 NaCl 25,000 unit In 0.45 % NaCl 1 250ml.bag @ 2.5 mls/hr IV .Q24H COUNTS INCLUDE 234 BEDS AT THE [facility] Rx#: [id number] Heparin Sod,Pork in 0.45% 30.0 2.5 NaCl 25,000 unit In 0.45 % NaCl 1 250ml.bag @ 2.5 mls/hr IV .Q24H COUNTS INCLUDE 234 BEDS AT THE [facility] Rx#: [id number] Sodium Chloride 0.9% 1, 420 35 000 ml @ 35 mls/hr IV . Q24H [facility] Rx#:[id number] Sodium Chloride 0.9% 1, 420 35 000 ml @ 35 mls/hr IV . Q24H COUNTS INCLUDE 234 BEDS AT THE [facility] Rx#:[id number] Sodium Chloride 0.9% 1, 140 10 000 ml @ Per Protocol IV .Q0M [facility] Rx#:[id number] Output: Urine 450 250 Other: Voiding Method External Catheter External Catheter - Exam PHYSICAL EXAM: VITAL SIGNS: Reviewed. GENERAL: Well-developed in no acute distress. HEENT: Head is normocephalic. Pupils are equal, round. Sclerae anicteric. Mucous membranes of the mouth are moist. NECK: Supple. No JVD or thyromegaly RESPIRATORY: Respirations even and unlabored. Lungs diminished to auscultation bilaterally. Supplemental oxygen CARDIO: Regular rate and rhythm. S1 and S2 heard. No murmur or gallops. EXTREMITIES: Normal range of motion. No clubbing or cyanosis. Peripheral pulses intact. Moderate bilateral lower extremity edema. Bilateral legs dusky with mild mottling. Doppler pulses. Right foot warm, left foot cool. Right groin sheaths in place NEURO: Orientated to person, time, mood is appropriate - Labs CBC & Chem 7: 12/01/21 06:15 12/01/21 06:15 Labs: Abnormal Lab Results - Last 24 Hours (Table) 11/29/21 11/29/21 11/29/21 Range/Units 12:27 12:27 12:27 WBC 12.0 H (3.8-10.6) k/uL Hct 46.3 H (34.0-46.0) % MCHC 29.5 L (31.0-37.0) g/dL RDW 16.9 H (11.5-15.5) % Neutrophils # 9.6 H (1.3-7.7) k/uL APTT (22.0-30.0) sec Fibrinogen (200-500) mg/dL D-Dimer 2.75 H (<0.60) mg/L FEU Sodium (137-145) mmol/L Carbon Dioxide (22-30) mmol/L BUN 26 H (7-17) mg/dL Creatinine 1.22 H (0.52-1.04) mg/dL Glucose 110 H (74-99) mg/dL POC Glucose (mg/dL) (70-110) mg/dL Alkaline Phosphatase 201 H (38-126) U/L 11/29/21 11/29/21 11/29/21 Range/Units 19:45 20:53 20:53 WBC 12.8 H (3.8-10.6) k/uL Hct (34.0-46.0) % MCHC 30.4 L (31.0-37.0) g/dL RDW 17.1 H (11.5-15.5) % Neutrophils # 11.3 H (1.3-7.7) k/uL APTT 34.0 H (22.0-30.0) sec Fibrinogen 777 H (200-500) mg/dL D-Dimer (<0.60) mg/L FEU Sodium (137-145) mmol/L Carbon Dioxide (22-30) mmol/L BUN (7-17) mg/dL Creatinine (0.52-1.04) mg/dL Glucose (74-99) mg/dL POC Glucose (mg/dL) 151 H (70-110) mg/dL Alkaline Phosphatase (38-126) U/L 11/29/21 11/30/21 11/30/21 Range/Units 20:53 06:59 06:59 WBC 11.3 H (3.8-10.6) k/uL Hct (34.0-46.0) % MCHC 30.9 L (31.0-37.0) g/dL RDW 17.3 H (11.5-15.5) % Neutrophils # 9.5 H (1.3-7.7) k/uL APTT (22.0-30.0) sec Fibrinogen (200-500) mg/dL D-Dimer (<0.60) mg/L FEU Sodium 134 L 134 L (137-145) mmol/L Carbon Dioxide 20 L 19 L (22-30) mmol/L BUN 22 H 27 H (7-17) mg/dL Creatinine 1.11 H 1.07 H (0.52-1.04) mg/dL Glucose 152 H 191 H (74-99) mg/dL POC Glucose (mg/dL) (70-110) mg/dL Alkaline Phosphatase 214 H (38-126) U/L Assessment and Plan Assessment: Multiple Pulmonary embolism requiring EKOS New-onset proximal atrial fibrillation Severe COPD Pulmonary fibrosis Hypertension Plan: Plan is to remove sheaths today Discontinue Cardizem gtt Discontinue Bisoprolol/ HTCZ Start Toprol-XL 25 mg daily Echocardiogram pending Continue with tele monitoring Further recommendations based on clinical course The above impression and plan of care have been discussed and directed by the signing physician. Guadalupe Benton, nurse practitioner, acting as scribe for s igning physician.
[2021-11-30] MEDS: METOPROLOL SUCCINATE (ER) 25 MG TAB.ER.24H PO SCH (10:10)
[2021-11-30] MEDS: HEPARIN SOD,PORK IN 0.45% NACL 25,000 UNIT in 0.45% NACL 1 250ML.BAG IV SCH ×2 (12:06→23:39)
[2021-11-30] MEDS ORDERED: LOSARTAN 50 MG TAB PO STA (12:20)
--- NOTE | 2021-11-30 12:45 | P.CNPUL ---
History of Present Illness Consult date: 11/30/21 Reason for consult: pulmonary embolism Chief complaint: Shortness of breath and hemoptysis History of present illness: This is a 56-year-old female with history of COPD, hypertension, strong family history of thromboembolic disease including father and sister. History of CVA/TIA, patient presented to the ER yesterday with a few weeks history of increased shortness of breath, swelling all over, and she was recently seen by her primary care physician who gave her antibiotics and steroids, but was not getting any better. 2 days prior to presentation, patient noted blood-tinged sputum and she was coughing some bright red blood clots. Patient herself never had history of thromboembolic disease, she was noted to have atrial fibrillation with RVR in the ER, and CT angiogram of the chest clearly showed submassive bilateral pulmonary emboli. She was also noted to have a right lower lobe infarct. Patient had an echocardiogram which clearly showed right ventricular strain, patient was seen by cardiology on consultation, and she underwent EKOS thrombolysis. She was sent back to the ICU, and I was asked to see her on consultation. Today the patient is feeling much better, breathing a lot easier, no further episodes of hemoptysis. Patient is on 5 L nasal cannula, O2 saturation is in the mid 90s. Her pulmonary catheter remains in place, patient is also on Cardizem drip, she is in sinus rhythm, she seems to be hemodynamically stable. Patient is to have Cardizem discontinued later today, and she'll be started on metoprolol XL 25 mg daily. Again the patient had strong family history of thromboembolic disease, but she never had workup in the form of hypercoagulable profile to determine the exact etiology of her family history of thromboembolic disease Review of Systems Constitutional: Negative HEENT: Negative Pulmonary: As noted in HPI. Cardiac: As noted in HPI GI: Negative genitourinary: Negative Muscular skeletal: Negative Neurologic: Negative Hematologic: As noted in HPI Psychiatric: Negative Skin: Negative Past Medical History Past Medical History: Asthma, COPD, Hypertension, Thyroid Disorder Additional Past Medical History / Comment(s): pulmonary hypertension, emphysema History of Any Multi-Drug Resistant Organisms: MRSA Date of last positivie culture/infection: 12/26/19 MDRO Source:: TISSUE Past Surgical History: Orthopedic Surgery Additional Past Surgical History / Comment(s): tubal pregnancies Past Anesthesia/Blood Transfusion Reactions: No Reported Reaction Past Psychological History: Anxiety, Depression Smoking Status: Current every day smoker Past Alcohol Use History: None Reported Past Drug Use History: None Reported - Past Family History Sister(s) Family Medical History: Deep Vein Thrombosis (DVT) Father History Unknown: Yes Family Medical History: Coronary Artery Disease (CAD), CVA/TIA Mother History Unknown: Yes Family Medical History: Hypertension Medications and Allergies Home Medications Medication Instructions Recorded Confirmed Type ALPRAZolam 1 mg PO TID PRN 11/17/13 11/29/21 History Bisoprolol/Hydrochlorothiazide 1 tab PO DAILY 11/17/13 11/29/21 History [Ziac 10-6.25 MG] Albuterol Inhaler [Ventolin Hfa 2 puff INHALATION RT-Q6H PRN 04/10/15 11/29/21 History Inhaler] Albuterol Nebulized [Ventolin 2.5 mg INHALATION RT-Q4H PRN 04/10/15 11/29/21 History Nebulized] ARIPiprazole 5 mg PO DAILY 11/29/21 11/29/21 History Fluticasone/Umeclidin/Vilanter 1 puff INHALATION RT-DAILY 11/29/21 11/29/21 History [Trelegy Ellipta 100-62.5-25] Furosemide [Lasix] 20 mg PO AC-BID 11/29/21 11/29/21 History Levothyroxine Sodium [Levo-T] 37.5 mcg PO DAILY 11/29/21 11/29/21 History Levothyroxine Sodium [Synthroid] 50 mcg PO DAILY 11/29/21 11/29/21 History Omeprazole [PriLOSEC] 20 mg PO BID 11/29/21 11/29/21 History Potassium Chloride [Potassium 10 meq PO BID 11/29/21 11/29/21 History Chloride ER] Topiramate [Topamax] 25 mg PO BID 11/29/21 11/29/21 History Topiramate [Topamax] 50 mg PO BID 11/29/21 11/29/21 History lamoTRIgine 200 mg PO DAILY 11/29/21 11/29/21 History modafiniL [Provigil] 200 mg PO DAILY 11/29/21 11/29/21 History rOPINIRole HCL [Requip] 0.5 mg PO HS 11/29/21 11/29/21 History Allergies Allergy/AdvReac Type Severity Reaction Status Date / Time No Known Allergies Allergy Verified 11/29/21 13:05 Physical Exam Vitals: Vital Signs Temp Pulse Pulse Resp BP BP Pulse Ox 11/30/21 12:00 98.1 F 69 24 164/99 98 11/30/21 11:30 97.8 F 63 15 164/99 99 11/30/21 11:13 64 11/30/21 11:02 64 11/30/21 11:00 69 13 158/98 97 11/30/21 10:30 61 18 158/98 97 11/30/21 10:00 97.7 F 61 18 151/119 97 11/30/21 09:30 63 18 151/119 97 11/30/21 09:00 96.6 F L 67 9 L 156/93 11/30/21 08:30 74 17 156/93 95 11/30/21 08:27 61 11/30/21 08:11 68 11/30/21 08:00 94 F L 65 21 159/95 95 11/30/21 07:30 71 18 159/95 96 11/30/21 07:00 59 L 17 153/92 97 11/30/21 06:30 60 17 153/92 96 11/30/21 06:00 65 23 141/83 95 11/30/21 05:30 69 26 H 141/83 96 11/30/21 05:00 62 17 141/83 96 11/30/21 04:30 63 18 155/90 96 11/30/21 04:00 98.4 F 61 20 141/93 94 L 11/30/21 03:30 62 26 H 161/94 95 11/30/21 03:00 66 20 165/105 95 11/30/21 02:30 64 18 160/95 94 L 11/30/21 02:00 64 17 149/92 94 L 11/30/21 01:30 57 L 18 141/94 94 L 11/30/21 01:00 60 20 141/86 93 L 11/30/21 00:30 56 L 19 144/95 94 L 11/30/21 00:12 60 20 143/97 94 L 11/30/21 00:00 60 19 144/87 07/26/22 23:30 60 21 137/86 93 L 11/29/21 23:10 62 20 143/99 93 L 11/29/21 23:00 62 21 150/94 94 L 11/29/21 22:50 64 18 150/94 94 L 11/29/21 22:40 66 13 159/113 95 11/29/21 22:30 65 25 H 155/94 94 L 11/29/21 22:20 70 21 155/94 96 11/29/21 22:10 68 25 H 142/93 94 L 11/29/21 22:00 65 18 146/91 95 11/29/21 21:50 65 27 H 146/91 94 L 11/29/21 21:40 65 17 147/87 93 L 11/29/21 21:30 66 26 H 154/85 93 L 11/29/21 21:20 66 18 154/85 92 L 11/29/21 21:10 66 16 142/88 93 L 11/29/21 21:00 66 17 113/78 93 L 11/29/21 20:50 70 29 H 113/78 93 L 11/29/21 20:40 69 23 144/87 94 L 11/29/21 20:30 68 33 H 147/92 94 L 11/29/21 20:20 68 32 H 147/92 92 L 11/29/21 20:10 65 30 H 139/87 96 11/29/21 20:00 63 30 H 139/85 91 L 11/29/21 19:59 65 11/29/21 19:50 63 27 H 139/85 91 L 11/29/21 19:40 66 25 H 169/94 11/29/21 19:30 169/94 11/29/21 17:00 105 H 24 166/102 96 11/29/21 16:50 99.7 F H 105 H 25 H 166/102 96 11/29/21 16:40 105 H 21 170/105 97 11/29/21 16:33 104 H 15 11/29/21 16:30 99.7 F H 24 166/102 96 11/29/21 16:04 104 H 22 11/29/21 16:00 110 H 11/29/21 15:52 106 H 22 11/29/21 14:09 102 H 22 135/98 97 11/29/21 13:14 147 H 18 11/29/21 13:06 138 H 26 H Intake and Output 11/29/21 11/30/21 11/30/21 22:59 06:59 14:59 Intake Total 467.833 883.750 450.0 Output Total 250 200 70 Balance 217.833 683.750 380.0 Intake: IV 100 Intake, IV Titration 367.833 883.750 450.0 Amount Alteplase 10 mg In Sodium 30 20 Chloride 0.9% 90 ml @ 1 MG/HR 10 mls/hr IV .Q10H [facility] Rx#:[id number] Alteplase 10 mg In Sodium 30 20 Chloride 0.9% 90 ml @ 1 MG/HR 10 mls/hr IV .Q10H [facility] Rx#:[id number] Diltiazem 125 mg In 82.833 28.750 Sodium Chloride 0.9% 100 ml @ 10 MG/HR 10 mls/hr IV .[id number] [facility] Rx#: [id number] Heparin Sod,Pork in 0.45% 250 NaCl 25,000 unit In 0.45 % NaCl 1 250ml.bag @ 18 UNITS/KG/HR 16.329 mls/hr IV .[id number] [facility] Rx#: [id number] Heparin Sod,Pork in 0.45% 7.5 22.5 5.0 NaCl 25,000 unit In 0.45 % NaCl 1 250ml.bag @ 2.5 mls/hr IV .Q24H [facility] Rx#: [id number] Heparin Sod,Pork in 0.45% 7.5 22.5 5.0 NaCl 25,000 unit In 0.45 % NaCl 1 250ml.bag @ 2.5 mls/hr IV .Q24H [facility] Rx#: [id number] Sodium Chloride 0.9% 1, 105 315 70 000 ml @ 35 mls/hr IV . Q24H [facility] Rx#:[id number] Sodium Chloride 0.9% 1, 105 315 70 000 ml @ 35 mls/hr IV . Q24H [facility] Rx#:[id number] Sodium Chloride 0.9% 1, 140 40 000 ml @ Per Protocol IV .Q0M [facility] Rx#:[id number] Sodium Chloride 0.9% 1, 10 000 ml @ Per Protocol IV .Q0M [facility] Rx#:[id number] Output: Urine 250 200 70 Other: Voiding Method External Catheter External Catheter Weight 90.718 kg 105 kg 105 kg Physical Exam: Revealed a 56-year-old female in no distress, on 5 L nasal cannu la Head: Atraumatic, normocephalic. HEENT:[Neck is supple.] [No neck masses.] [No thyromegaly.] [No JVD.] Chest: [Diminished breath sounds and crackles at the bases, no rhonchi no wheezes Cardiac Exam: [Normal S1 and S2, no S3 gallop, no murmur.] Abdomen: [Soft, nontender, no megaly, no rebound, no guarding, normal bowel sounds.] Extremities: [No clubbing, 2+ bipedal edema, no cyanosis.] Thrombolytic catheter noted in the right groin pain Neurological Exam: [No focal neurologic deficit.] Alert and oriented 3 Psychiatric: Normal mood, affect and normal mental status examination. Skin: No rashes. Results - Laboratory Findings CBC and BMP: 11/30/21 06:59 11/30/21 06:59 PT/INR, D-dimer PT 11.5 sec (9.0-12.0) 11/29/21 20:53 INR 1.1 (<1.2) 11/29/21 20:53 D-Dimer 2.75 mg/L FEU (<0.60) H 11/29/21 12:27 Abnormal lab findings: Abnormal Labs 11/29/21 11/29/21 11/29/21 12:27 12:27 12:27 WBC 12.0 H Hct 46.3 H MCHC 29.5 L RDW 16.9 H Neutrophils # 9.6 H APTT Fibrinogen D-Dimer 2.75 H Sodium Carbon Dioxide BUN 26 H Creatinine 1.22 H Glucose 110 H POC Glucose (mg/dL) Alkaline Phosphatase 201 H 11/29/21 11/29/21 11/29/21 19:45 20:53 20:53 WBC 12.8 H Hct MCHC 30.4 L RDW 17.1 H Neutrophils # 11.3 H APTT 34.0 H Fibrinogen 777 H D-Dimer Sodium Carbon Dioxide BUN Creatinine Glucose POC Glucose (mg/dL) 151 H Alkaline Phosphatase 11/29/21 11/30/21 11/30/21 20:53 06:59 06:59 WBC 11.3 H Hct MCHC 30.9 L RDW 17.3 H Neutrophils # 9.5 H APTT Fibrinogen D-Dimer Sodium 134 L 134 L Carbon Dioxide 20 L 19 L BUN 22 H 27 H Creatinine 1.11 H 1.07 H Glucose 152 H 191 H POC Glucose (mg/dL) Alkaline Phosphatase 214 H - Diagnostic Findings CT scan - chest: image reviewed (As noted in HPI.) Assessment and Plan Assessment: Impression: Acute pulmonary embolism, right ventricular strain, status post EKOS thrombolytic therapy. New onset atrial fibrillation with RVR secondary to pulmonary embolism History of underlying COPD Benign essential hypertension Strong family history of thromboembolic disease/DVT and pulmonary embolism Strongly suspect hypercoagulable state. Recommendation: Continue supportive care measures Continue to monitor in the ICU and titrate oxygen accordingly Continue heparin and eventually transition to eliquis. Continue bronchodilators including Solu-Medrol. Continue Toprol Discontinue Cardizem Continue to monitor in the ICU Overall prognosis remains relatively guarded. We will continue to follow Time with Patient: Greater than 30
[2021-11-30] MEDS: methylPREDNISolone SOD SUCCI 40 MG/ML 1 ML VIAL IV SCH (16:34)
[2021-11-30] MEDS ORDERED: amLODIPine 10 MG TAB PO STA (18:08)
[2021-11-30] MEDS ORDERED: DEXTROSE 50% SYRINGE 50 ML IVP PRN ×2 (18:12)
[2021-11-30] MEDS: hydrALAZINE HCL 20 MG/ML 1 ML VIAL IVP PRN (18:22)
[2021-11-30] MEDS: SYMBICORT 160-4.5 MCG INHALER INHALATION SCH (19:35)
--- NOTE | 2021-11-30 19:47 | P.PN ---
Subjective This is a pleasant 56 years old female with multiple medical problems presents with respiratory symptoms secondary to massive intercourse train, she's been monitored closely in the ICU under going heparin drip therapy and EKOS therapy with cardiology and pulmonary/critical care team following him closely. Patient awake alert, no significant respiratory distress. No dyspnea at rest. Looks lethargic. Hemodynamically stable. On facet oxygen via nasal cannula. WBC 11.3, creatinine 1.0. Echocardiogram showed ejection fraction of 50-55% with severe right ventricular dilatation and tricuspid regurgitation and pulmonary hypertension. Objective - Vital Signs Vital signs: Vital Signs Temp 97.7 F 11/30/21 10:00 Pulse 61 11/30/21 10:00 Resp 18 11/30/21 10:00 BP 151/119 11/30/21 10:00 Pulse Ox 97 11/30/21 10:00 FiO2 Intake & Output 11/29/21 11/30/21 11/30/21 18:59 06:59 18:59 Intake Total 594.833 1720.500 440.0 Output Total 450 40 Balance 119.916 788.500 400.0 Weight 90.718 kg 105 kg 105 kg Intake: IV 100 Intake, IV Titration 19.916 1238.500 440.0 Amount Alteplase 10 mg In Sodium 50 Chloride 0.9% 90 ml @ 1 MG/HR 10 mls/hr IV .Q10H ONE Rx#:[id number] Alteplase 10 mg In Sodium 50 Chloride 0.9% 90 ml @ 1 MG/HR 10 mls/hr IV .Q10H ONE Rx#:[id number] Diltiazem 125 mg In 19.916 98.500 Sodium Chloride 0.9% 100 ml @ 10 MG/HR 10 mls/hr IV .[id number] IVÁN Rx#: [id number] Heparin Sod,Pork in 0.45% 250 NaCl 25,000 unit In 0.45 % NaCl 1 250ml.bag @ 18 UNITS/KG/HR 16.329 mls/hr IV .[id number] IVÁN Rx#: [id number] Heparin Sod,Pork in 0.45% 30.0 5.0 NaCl 25,000 unit In 0.45 % NaCl 1 250ml.bag @ 2.5 mls/hr IV .Q24H IVÁN Rx#: [id number] Heparin Sod,Pork in 0.45% 30.0 5.0 NaCl 25,000 unit In 0.45 % NaCl 1 250ml.bag @ 2.5 mls/hr IV .Q24H IVÁN Rx#: [id number] Sodium Chloride 0.9% 1, 420 70 000 ml @ 35 mls/hr IV . Q24H IVÁN Rx#:[id number] Sodium Chloride 0.9% 1, 420 70 000 ml @ 35 mls/hr IV . Q24H IVÁN Rx#:[id number] Sodium Chloride 0.9% 1, 140 40 000 ml @ Per Protocol IV .Q0M IVÁN Rx#:[id number] Output: Urine 450 40 Other: Voiding Method External Catheter External Catheter - Exam GENERAL: The patient is alert and oriented x3, not in any acute distress. Well developed, well nourished. HEENT: Pupils are round and equally reacting to light. EOMI. No scleral icterus. No conjunctival pallor. Normocephalic, atraumatic. No pharyngeal erythema. No thyromegaly. CARDIOVASCULAR: S1 and S2 present. No murmurs, rubs, or gallops. PULMONARY: Chest is clear to auscultation, no wheezing or crackles. ABDOMEN: Soft, nontender, nondistended, normoactive bowel sounds. No palpable organomegaly. MUSCULOSKELETAL: No joint swelling or deformity. EXTREMITIES: No cyanosis, clubbing, or pedal edema. NEUROLOGICAL: Gross neurological examination did not reveal any focal deficits. SKIN: No rashes. no petechiae. - Labs CBC & Chem 7: 11/30/21 06:59 11/30/21 06:59 Labs: Abnormal Lab Results - Last 24 Hours (Table) 11/29/21 11/29/21 11/29/21 Range/Units 12:27 12:27 12:27 WBC 12.0 H (3.8-10.6) k/uL Hct 46.3 H (34.0-46.0) % MCHC 29.5 L (31.0-37.0) g/dL RDW 16.9 H (11.5-15.5) % Neutrophils # 9.6 H (1.3-7.7) k/uL APTT (22.0-30.0) sec Fibrinogen (200-500) mg/dL D-Dimer 2.75 H (<0.60) mg/L FEU Sodium (137-145) mmol/L Carbon Dioxide (22-30) mmol/L BUN 26 H (7-17) mg/dL Creatinine 1.22 H (0.52-1.04) mg/dL Glucose 110 H (74-99) mg/dL POC Glucose (mg/dL) (70-110) mg/dL Alkaline Phosphatase 201 H (38-126) U/L 11/29/21 11/29/21 11/29/21 Range/Units 19:45 20:53 20:53 WBC 12.8 H (3.8-10.6) k/uL Hct (34.0-46.0) % MCHC 30.4 L (31.0-37.0) g/dL RDW 17.1 H (11.5-15.5) % Neutrophils # 11.3 H (1.3-7.7) k/uL APTT 34.0 H (22.0-30.0) sec Fibrinogen 777 H (200-500) mg/dL D-Dimer (<0.60) mg/L FEU Sodium (137-145) mmol/L Carbon Dioxide (22-30) mmol/L BUN (7-17) mg/dL Creatinine (0.52-1.04) mg/dL Glucose (74-99) mg/dL POC Glucose (mg/dL) 151 H (70-110) mg/dL Alkaline Phosphatase (38-126) U/L 11/29/21 11/30/21 11/30/21 Range/Units 20:53 06:59 06:59 WBC 11.3 H (3.8-10.6) k/uL Hct (34.0-46.0) % MCHC 30.9 L (31.0-37.0) g/dL RDW 17.3 H (11.5-15.5) % Neutrophils # 9.5 H (1.3-7.7) k/uL APTT (22.0-30.0) sec Fibrinogen (200-500) mg/dL D-Dimer (<0.60) mg/L FEU Sodium 134 L 134 L (137-145) mmol/L Carbon Dioxide 20 L 19 L (22-30) mmol/L BUN 22 H 27 H (7-17) mg/dL Creatinine 1.11 H 1.07 H (0.52-1.04) mg/dL Glucose 152 H 191 H (74-99) mg/dL POC Glucose (mg/dL) (70-110) mg/dL Alkaline Phosphatase 214 H (38-126) U/L Assessment and Plan Assessment: Massive bilateral pulmonary embolism with pulmonary infarction and right ventricular strain New-onset atrial fibrillation Severe right ventricular dilatation and severe tricuspid regurgitation and severe pulmonary hypertension Acute COPD exacerbation Obesity Plan: This is a pleasant 56 years old female with massive PE and RV strain Continue with heparin drip Continue with pulmonary and cardiology consult recommendations 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 Continue same treatment. Continue with symptomatic treatment. Resume home medication. Monitor lytes and vitals. DVT and GI prophylaxis. Further recommendations as per clinical course of the patient DVT prophylaxis: heparin GI Prophylaxis: Pepcid PT/OT: Pending Prognosis is guarded
[2021-11-30 20:05] LABS: Glucose,Whole Blood 305 mg/dL (70-110)
[2021-11-30] MEDS: INSULIN ASPART (NovoLOG) 100 UNIT/ML VIAL SQ SCH (20:07)
[2021-12-01] MEDS: methylPREDNISolone SOD SUCCI 40 MG/ML 1 ML VIAL IV SCH ×3 (00:07→16:17)
[2021-12-01] MEDS: hydrALAZINE HCL 20 MG/ML 1 ML VIAL IVP PRN (00:07)
[2021-12-01] MEDS: HYDROmorphone 0.5 MG/0.5 ML SYRINGE IVP PRN ×2 (04:02→20:14)
[2021-12-01 06:47] LABS: Glucose,Whole Blood 235 mg/dL (70-110)
[2021-12-01] MEDS: LEVOTHYROXINE 50 MCG TAB PO SCH (06:49)
[2021-12-01] MEDS: FUROSEMIDE 20 MG TAB PO SCH ×2 (06:49→16:16)
[2021-12-01] MEDS: LEVOTHYROXINE 75 MCG TAB PO SCH (06:49)
[2021-12-01] MEDS: INSULIN ASPART (NovoLOG) 100 UNIT/ML VIAL SQ SCH ×7 (06:50→20:02)
[2021-12-01 06:51] LABS: INR 1.1 (<1.2); Partial Thromboplastin Time 60.4 sec (22.0-30.0); Prothrombin Time 11.8 sec (9.0-12.0)
[2021-12-01] MEDS: IPRATROPIUM-ALBUTEROL 3 ML NEB INHALATION SCH ×3 (07:10→18:53)
[2021-12-01] MEDS: SYMBICORT 160-4.5 MCG INHALER INHALATION SCH ×2 (07:11→19:01)
[2021-12-01 07:29] LABS: Calcium 9.6 mg/dL (8.4-10.2); Potassium 5.5 mmol/L (3.5-5.1)
[2021-12-01 07:31] LABS: Anisocytosis Slight; Basophils # (A) 0.1 k/uL (0-0.2); Basophils % (A) 0 %; Eosinophils % (A) 0 %; HGB 13.5 gm/dL (11.4-16.0); Hypochromasia Marked; Lymphocytes # (A) 1.8 k/uL (1.0-4.8); Lymphocytes % (A) 9 %; MCH 25.9 pg (25.0-35.0); MCHC 28.7 g/dL (31.0-37.0); Mean Platelet Volume 7.7; Monocytes # (A) 1.1 k/uL (0-1.0); Monocytes % (A) 6 %; Neutrophils # (A) 16.9 k/uL (1.3-7.7); Neutrophils % (A) 84 %; Platelet Count 340 k/uL (150-450); RBC 5.22 m/uL (3.80-5.40); WBC 20.2 k/uL (3.8-10.6)
--- NOTE | 2021-12-01 09:10 | P.PN ---
Subjective Progress Note Date: 12/01/21 She has a known history of pulmonary fibrosis COPD hypertension who presented to the ER with progressively worsening shortness of breath for several days, with hemoptysis 2 days ago. Her d-dimer was elevated, CT of the chest showed extensive bilateral pulmonary embolism involving the main pulmonary arteries and segmental in subsegmental arteries. Her right ventricular is moderately enlarged with evidence of right heart strain and there is also pulmonary infarct in the right lobe. Patient underwent EKOS with Dr. Christie yesterday. Patient EKG in the ER showed new onset atrial fibrillation. Patient is seen today comfortably resting in the chair. She remains on supplemental oxygen. She reports improvement in her shortness of breath she denies chest pain. Patient's bilateral lower extremities are pink warm to the touch, pulse was found by Doppler. Patient remains in sinus rhythm on the m onitor. Blood pressure is controlled along with heart rate remains controlled patient will be started on Eliquis. 10 mg twice a day for 7 days then 5 mg twice a day. will check coverage. Patient is being transferred to [facility]. today Objective - Vital Signs Vital signs: Vital Signs Temp 98.1 F 12/01/21 08:00 Pulse 68 12/01/21 08:00 Resp 15 12/01/21 08:00 BP 137/97 12/01/21 08:00 Pulse Ox 94 L 12/01/21 08:00 FiO2 Intake & Output 11/30/21 12/01/21 12/01/21 18:59 06:59 18:59 Intake Total 637.873 212.573 10 Output Total 470 1750 Balance 167.873 -1537.427 10 Weight 105 kg 104.3 kg Intake: IV 110 10 .9 KVO 110 10 Intake, IV Titration 637.873 102.573 Amount Heparin Sod,Pork in 0.45% 352.873 102.573 NaCl 25,000 unit In 0.45 % NaCl 1 250ml.bag @ 18 UNITS/KG/HR 16.329 mls/hr IV .[id number] IVÁN Rx#: [id number] Heparin Sod,Pork in 0.45% 5.0 NaCl 25,000 unit In 0.45 % NaCl 1 250ml.bag @ 2.5 mls/hr IV .Q24H IVÁN Rx#: [id number] Heparin Sod,Pork in 0.45% 20.0 NaCl 25,000 unit In 0.45 % NaCl 1 250ml.bag @ 2.5 mls/hr IV .Q24H IVÁN Rx#: [id number] Sodium Chloride 0.9% 1, 70 000 ml @ 35 mls/hr IV . Q24H IVÁN Rx#:[id number] Sodium Chloride 0.9% 1, 70 000 ml @ 35 mls/hr IV . Q24H IVÁN Rx#:[id number] Sodium Chloride 0.9% 1, 40 000 ml @ Per Protocol IV .Q0M IVÁN Rx#:[id number] Sodium Chloride 0.9% 1, 80 000 ml @ Per Protocol IV .Q0M IVÁN Rx#:[id number] Output: Urine 470 1750 Other: Voiding Method External Catheter External Catheter - Exam PHYSICAL EXAM: VITAL SIGNS: Reviewed. GENERAL: Well-developed in no acute distress. HEENT: Head is normocephalic. Pupils are equal, round. Sclerae anicteric. Mucous membranes of the mouth are moist. NECK: Supple. No JVD or thyromegaly RESPIRATORY: Respirations even and unlabored. Lungs diminished to auscultation bilaterally. Supplemental oxygen CARDIO: Regular rate and rhythm. S1 and S2 heard. No murmur or gallops. EXTREMITIES: Normal range of motion. No clubbing or cyanosis. Peripheral pulses intact. Moderate bilateral lower extremity edema. Bilateral legs dusky with mild mottling. Doppler pulses. Right foot warm, left foot cool. Right groin sheaths in place NEURO: Orientated to person, time, mood is appropriate - Labs CBC & Chem 7: 12/01/21 06:15 12/01/21 06:15 Labs: Abnormal Lab Results - Last 24 Hours (Table) 11/30/21 11/30/21 11/30/21 Range/Units 06:59 17:34 20:03 WBC (3.8-10.6) k/uL Hct (34.0-46.0) % MCHC (31.0-37.0) g/dL RDW (11.5-15.5) % Neutrophils # (1.3-7.7) k/uL Monocytes # (0-1.0) k/uL APTT 88.7 H (22.0-30.0) sec Sodium (137-145) mmol/L Potassium (3.5-5.1) mmol/L BUN (7-17) mg/dL Creatinine (0.52-1.04) mg/dL Glucose (74-99) mg/dL POC Glucose (mg/dL) 305 H (70-110) mg/dL Hemoglobin A1c 8.1 H (0.0-6.0) % 12/01/21 12/01/21 12/01/21 Range/Units 00:30 06:15 06:15 WBC 20.2 H (3.8-10.6) k/uL Hct 47.0 H (34.0-46.0) % MCHC 28.7 L (31.0-37.0) g/dL RDW 17.0 H (11.5-15.5) % Neutrophils # 16.9 H (1.3-7.7) k/uL Monocytes # 1.1 H (0-1.0) k/uL APTT 41.0 H (22.0-30.0) sec Sodium 135 L (137-145) mmol/L Potassium 5.5 H (3.5-5.1) mmol/L BUN 31 H (7-17) mg/dL Creatinine 1.06 H (0.52-1.04) mg/dL Glucose 211 H (74-99) mg/dL POC Glucose (mg/dL) (70-110) mg/dL Hemoglobin A1c (0.0-6.0) % 12/01/21 12/01/21 Range/Units 06:15 06:46 WBC (3.8-10.6) k/uL Hct (34.0-46.0) % MCHC (31.0-37.0) g/dL RDW (11.5-15.5) % Neutrophils # (1.3-7.7) k/uL Monocytes # (0-1.0) k/uL APTT 60.4 H (22.0-30.0) sec Sodium (137-145) mmol/L Potassium (3.5-5.1) mmol/L BUN (7-17) mg/dL Creatinine (0.52-1.04) mg/dL Glucose (74-99) mg/dL POC Glucose (mg/dL) 235 H (70-110) mg/dL Hemoglobin A1c (0.0-6.0) % Assessment and Plan Assessment: Multiple Pulmonary embolism requiring EKOS New-onset proximal atrial fibrillation Severe COPD Pulmonary fibrosis Hypertension Plan: Start Eliquis 10 mg twice a day 7 days then 5 mg 3 times a day Continue Toprol-XL 25 mg daily Check coverage of Eliquis Continue to decrease supplemental oxygen as tolerated and increase activity as tolerated Continue with tele monitoring Further recommendations based on clinical course The above impression and plan of care have been discussed and directed by the signing physician. Guadalupe Benton, nurse practitioner, acting as scribe for signing physician.
[2021-12-01] MEDS: POTASSIUM CHLORIDE ER 10 MEQ TAB.ER.PRT PO SCH ×2 (09:42→20:15)
[2021-12-01] MEDS: lamoTRIgine 100 MG TAB PO SCH (09:42)
[2021-12-01] MEDS: PANTOPRAZOLE 40 MG TABLET PO SCH ×2 (09:42→20:15)
[2021-12-01] MEDS: TOPIRAMATE 25 MG TAB PO SCH ×2 (09:42→20:15)
[2021-12-01] MEDS: APIXABAN 5 MG TAB PO SCH ×2 (09:43→20:15)
[2021-12-01] MEDS: METOPROLOL SUCCINATE (ER) 25 MG TAB.ER.24H PO SCH (09:43)
--- NOTE | 2021-12-01 10:46 | P.PN ---
Subjective Progress Note Date: 12/01/21 Principal diagnosis: Acute pulmonary embolism This is a 56-year-old female with history of COPD, hypertension, strong family history of thromboembolic disease including father and sister. History of CVA/TIA, patient presented to the ER yesterday with a few weeks history of incr eased shortness of breath, swelling all over, and she was recently seen by her primary care physician who gave her antibiotics and steroids, but was not getting any better. 2 days prior to presentation, patient noted blood-tinged sputum and she was coughing some bright red blood clots. Patient herself never had history of thromboembolic disease, she was noted to have atrial fibrillation with RVR in the ER, and CT angiogram of the chest clearly showed submassive bilateral pulmonary emboli. She was also noted to have a right lower lobe infarct. Patient had an echocardiogram which clearly showed right ventricular strain, patient was seen by cardiology on consultation, and she underwent EKOS thrombolysis. She was sent back to the ICU, and I was asked to see her on consultation. Today the patient is feeling much better, breathing a lot easier, no further episodes of hemoptysis. Patient is on 5 L nasal cannula, O2 saturation is in the mid 90s. Her pulmonary catheter remains in place, patient is also on Cardizem drip, she is in sinus rhythm, she seems to be hemodynamically stable. Patient is to have Cardizem discontinued later today, and she'll be started on metoprolol XL 25 mg daily. Again the patient had strong family history of thromboembolic disease, but she never had workup in the form of hypercoagulable profile to determine the exact etiology of her family history of thromboembolic disease Patient was reevaluated today on 12/01/21, patient is doing well, being transf erred out of the ICU to a cardiac floor. Patient remains on 5 L nasal cannula, she was already transitioned to eliquis. 10 mg twice a day for 7 days then 5 mg twice a day. And she will remain on eliquis lifetime. Patient is hemodynamically stable, does not seem to be in any distress today. Objective - Vital Signs Vital signs: Vital Signs Temp 98.1 F 12/01/21 08:00 Pulse 68 12/01/21 08:00 Resp 15 12/01/21 08:00 BP 137/97 12/01/21 08:00 Pulse Ox 94 L 12/01/21 08:00 FiO2 Intake & Output 11/30/21 12/01/21 12/01/21 18:59 06:59 18:59 Intake Total 637.873 212.573 10 Output Total 470 1750 Balance 167.873 -1537.427 10 Weight 105 kg 104.3 kg Intake: IV 110 10 .9 KVO 110 10 Intake, IV Titration 637.873 102.573 Amount Heparin Sod,Pork in 0.45% 352.873 102.573 NaCl 25,000 unit In 0.45 % NaCl 1 250ml.bag @ 18 UNITS/KG/HR 16.329 mls/hr IV .[id number] IVÁN Rx#: [id number] Heparin Sod,Pork in 0.45% 5.0 NaCl 25,000 unit In 0.45 % NaCl 1 250ml.bag @ 2.5 mls/hr IV .Q24H IVÁN Rx#: [id number] Heparin Sod,Pork in 0.45% 20.0 NaCl 25,000 unit In 0.45 % NaCl 1 250ml.bag @ 2.5 mls/hr IV .Q24H IVÁN Rx#: [id number] Sodium Chloride 0.9% 1, 70 000 ml @ 35 mls/hr IV . Q24H IVÁN Rx#:[id number] Sodium Chloride 0.9% 1, 70 000 ml @ 35 mls/hr IV . Q24H IVÁN Rx#:[id number] Sodium Chloride 0.9% 1, 40 000 ml @ Per Protocol IV .Q0M IVÁN Rx#:[id number] Sodium Chloride 0.9% 1, 80 000 ml @ Per Protocol IV .Q0M IVÁN Rx#:[id number] Output: Urine 470 1750 Other: Voiding Method External Catheter External Catheter - Exam Physical Exam: Revealed a 56-year-old female in no distress, on 5 L nasal cannula Head: Atraumatic, normocephalic. HEENT:[Neck is supple.] [No neck masses.] [No thyromegaly.] [No JVD.] Chest: [Diminished breath sounds and crackles at the bases, no rhonchi no wheezes Cardiac Exam: [Normal S1 and S2, no S3 gallop, no murmur.] Abdomen: [Soft, nontender, no megaly, no rebound, no guarding, normal bowel sounds.] Extremities: [No clubbing, 2+ bipedal edema, no cyanosis.] Thrombolytic cathete r noted in the right groin pain Neurological Exam: [No focal neurologic deficit.] Alert and oriented 3 Psychiatric: Normal mood, affect and normal mental status examination. Skin: No rashes. - Labs CBC & Chem 7: 12/01/21 06:15 12/01/21 06:15 Labs: Abnormal Lab Results - Last 24 Hours (Table) 11/30/21 11/30/21 11/30/21 Range/Units 06:59 17:34 20:03 WBC (3.8-10.6) k/uL Hct (34.0-46.0) % MCHC (31.0-37.0) g/dL RDW (11.5-15.5) % Neutrophils # (1.3-7.7) k/uL Monocytes # (0-1.0) k/uL APTT 88.7 H (22.0-30.0) sec Sodium (137-145) mmol/L Potassium (3.5-5.1) mmol/L BUN (7-17) mg/dL Creatinine (0.52-1.04) mg/dL Glucose (74-99) mg/dL POC Glucose (mg/dL) 305 H (70-110) mg/dL Hemoglobin A1c 8.1 H (0.0-6.0) % 12/01/21 12/01/21 12/01/21 Range/Units 00:30 06:15 06:15 WBC 20.2 H (3.8-10.6) k/uL Hct 47.0 H (34.0-46.0) % MCHC 28.7 L (31.0-37.0) g/dL RDW 17.0 H (11.5-15.5) % Neutrophils # 16.9 H (1.3-7.7) k/uL Monocytes # 1.1 H (0-1.0) k/uL APTT 41.0 H (22.0-30.0) sec Sodium 135 L (137-145) mmol/L Potassium 5.5 H (3.5-5.1) mmol/L BUN 31 H (7-17) mg/dL Creatinine 1.06 H (0.52-1.04) mg/dL Glucose 211 H (74-99) mg/dL POC Glucose (mg/dL) (70-110) mg/dL Hemoglobin A1c (0.0-6.0) % 12/01/21 12/01/21 Range/Units 06:15 06:46 WBC (3.8-10.6) k/uL Hct (34.0-46.0) % MCHC (31.0-37.0) g/dL RDW (11.5-15.5) % Neutrophils # (1.3-7.7) k/uL Monocytes # (0-1.0) k/uL APTT 60.4 H (22.0-30.0) sec Sodium (137-145) mmol/L Potassium (3.5-5.1) mmol/L BUN (7-17) mg/dL Creatinine (0.52-1.04) mg/dL Glucose (74-99) mg/dL POC Glucose (mg/dL) 235 H (70-110) mg/dL Hemoglobin A1c (0.0-6.0) % Assessment and Plan Assessment: Impression: Acute pulmonary embolism, right ventricular strain, status post EKOS thrombolytic therapy. New onset atrial fibrillation with RVR secondary to pulmonary embolism History of underlying COPD Benign essential hypertension Strong family history of thromboembolic disease/DVT and pulmonary embolism Strongly suspect hypercoagulable state. Recommendation: Continue eliquis, patient is now off heparin. Continue bronchodilators including Solu-Medrol. Continue Toprol Transfer to a monitor bed/cardiac floor. Possible discharge planning in the next 24 hours We will continue to follow Time with Patient: Less than 30
[2021-12-01] MEDS: ARIPiprazole 5 MG TAB PO SCH (10:59)
[2021-12-01 11:48] LABS: Glucose,Whole Blood 257 mg/dL (70-110)
[2021-12-01 16:40] LABS: Glucose,Whole Blood 176 mg/dL (70-110)
[2021-12-01] MEDS: SYMBICORT 80-4.5 MCG INHALER INHALATION SCH (19:00)
[2021-12-01 19:49] LABS: Glucose,Whole Blood 130 mg/dL (70-110)
--- NOTE | 2021-12-01 21:39 | P.PN ---
Subjective This is a pleasant 56 years old female with multiple medical problems presents with respiratory symptoms secondary to massive intercourse train, she's been monitored closely in the ICU under going heparin drip therapy and EKOS therapy with cardiology and pulmonary/critical care team following him closely. Patient awake alert, no significant respiratory distress. No dyspnea at rest. Looks lethargic. Hemodynamically stable. On facet oxygen via nasal cannula. WBC 11.3, creatinine 1.0. Echocardiogram showed ejection fraction of 50-55% with severe right ventricular dilatation and tricuspid regurgitation and pulmonary hypertension. 12/01/2021 pt is improving slowly and gradually , no significant dyspnea at rest , her oxygen saturation is 97% on 5-6 L/m of oxygen her exertional dyspnea is improving pt remains hemodynamically stable labs are reviewed her AC is changed to eliquis therapeutic dose, risks and benefits are explained c/w solumedrol at 40 mg Objective - Vital Signs Vital signs: Vital Signs Temp 98.1 F 12/01/21 08:00 Pulse 68 12/01/21 08:00 Resp 15 12/01/21 08:00 BP 137/97 12/01/21 08:00 Pulse Ox 94 L 12/01/21 08:00 FiO2 Intake & Output 11/30/21 12/01/21 12/01/21 18:59 06:59 18:59 Intake Total 637.873 212.573 10 Output Total 470 1750 Balance 167.873 -1537.427 10 Weight 105 kg 104.3 kg Intake: IV 110 10 .9 KVO 110 10 Intake, IV Titration 637.873 102.573 Amount Heparin Sod,Pork in 0.45% 352.873 102.573 NaCl 25,000 unit In 0.45 % NaCl 1 250ml.bag @ 18 UNITS/KG/HR 16.329 mls/hr IV .[id number] IVÁN Rx#: [id number] Heparin Sod,Pork in 0.45% 5.0 NaCl 25,000 unit In 0.45 % NaCl 1 250ml.bag @ 2.5 mls/hr IV .Q24H IVÁN Rx#: [id number] Heparin Sod,Pork in 0.45% 20.0 NaCl 25,000 unit In 0.45 % NaCl 1 250ml.bag @ 2.5 mls/hr IV .Q24H IVÁN Rx#: [id number] Sodium Chloride 0.9% 1, 70 000 ml @ 35 mls/hr IV . Q24H IVÁN Rx#:[id number] Sodium Chloride 0.9% 1, 70 000 ml @ 35 mls/hr IV . Q24H IVÁN Rx#:[id number] Sodium Chloride 0.9% 1, 40 000 ml @ Per Protocol IV .Q0M IVÁN Rx#:[id number] Sodium Chloride 0.9% 1, 80 000 ml @ Per Protocol IV .Q0M IVÁN Rx#:[id number] Output: Urine 470 1750 Other: Voiding Method External Catheter External Catheter - Exam GENERAL: The patient is alert and oriented x3, not in any acute distress. Well developed, well nourished. HEENT: Pupils are round and equally reacting to light. EOMI. No scleral icterus. No conjunctival pallor. Normocephalic, atraumatic. No pharyngeal erythema. No thyromegaly. CARDIOVASCULAR: S1 and S2 present. No murmurs, rubs, or gallops. PULMONARY: Chest is clear to auscultation, no wheezing or crackles. ABDOMEN: Soft, nontender, nondistended, normoactive bowel sounds. No palpable organomegaly. MUSCULOSKELETAL: No joint swelling or deformity. EXTREMITIES: No cyanosis, clubbing, or pedal edema. NEUROLOGICAL: Gross neurological examination did not reveal any focal deficits. SKIN: No rashes. no petechiae. - Labs CBC & Chem 7: 12/01/21 06:15 12/01/21 06:15 Labs: Abnormal Lab Results - Last 24 Hours (Table) 11/30/21 11/30/21 11/30/21 Range/Units 06:59 17:34 20:03 WBC (3.8-10.6) k/uL Hct (34.0-46.0) % MCHC (31.0-37.0) g/dL RDW (11.5-15.5) % Neutrophils # (1.3-7.7) k/uL Monocytes # (0-1.0) k/uL APTT 88.7 H (22.0-30.0) sec Sodium (137-145) mmol/L Potassium (3.5-5.1) mmol/L BUN (7-17) mg/dL Creatinine (0.52-1.04) mg/dL Glucose (74-99) mg/dL POC Glucose (mg/dL) 305 H (70-110) mg/dL Hemoglobin A1c 8.1 H (0.0-6.0) % 12/01/21 12/01/21 12/01/21 Range/Units 00:30 06:15 06:15 WBC 20.2 H (3.8-10.6) k/uL Hct 47.0 H (34.0-46.0) % MCHC 28.7 L (31.0-37.0) g/dL RDW 17.0 H (11.5-15.5) % Neutrophils # 16.9 H (1.3-7.7) k/uL Monocytes # 1.1 H (0-1.0) k/uL APTT 41.0 H (22.0-30.0) sec Sodium 135 L (137-145) mmol/L Potassium 5.5 H (3.5-5.1) mmol/L BUN 31 H (7-17) mg/dL Creatinine 1.06 H (0.52-1.04) mg/dL Glucose 211 H (74-99) mg/dL POC Glucose (mg/dL) (70-110) mg/dL Hemoglobin A1c (0.0-6.0) % 12/01/21 12/01/21 Range/Units 06:15 06:46 WBC (3.8-10.6) k/uL Hct (34.0-46.0) % MCHC (31.0-37.0) g/dL RDW (11.5-15.5) % Neutrophils # (1.3-7.7) k/uL Monocytes # (0-1.0) k/uL APTT 60.4 H (22.0-30.0) sec Sodium (137-145) mmol/L Potassium (3.5-5.1) mmol/L BUN (7-17) mg/dL Creatinine (0.52-1.04) mg/dL Glucose (74-99) mg/dL POC Glucose (mg/dL) 235 H (70-110) mg/dL Hemoglobin A1c (0.0-6.0) % Assessment and Plan Assessment: Massive bilateral pulmonary embolism with pulmonary infarction and right ventricular strain New-onset atrial fibrillation Severe right ventricular dilatation and severe tricuspid regurgitation and s evere pulmonary hypertension Acute COPD exacerbation Obesity Plan: This is a pleasant 56 years old female with massive PE and RV strain start eliquis Continue with pulmonary and cardiology consult recommendations Continue with Solu-Medrol Labs and medication were reviewed.. Continue same treatment. Continue with symptomatic treatment. Resume home medication. Monitor lytes and vitals. DVT and GI prophylaxis. Further recommendations as per clinical course of the patient DVT prophylaxis: heparin GI Prophylaxis: Pepcid PT/OT: Pending Prognosis is guarded
[2021-12-02] MEDS: methylPREDNISolone SOD SUCCI 40 MG/ML 1 ML VIAL IV SCH ×3 (00:14→16:14)
[2021-12-02] MEDS: IPRATROPIUM-ALBUTEROL 3 ML NEB INHALATION SCH ×4 (00:29→16:48)
[2021-12-02] MEDS: FUROSEMIDE 20 MG TAB PO SCH ×2 (06:58→16:14)
[2021-12-02] MEDS: LEVOTHYROXINE 75 MCG TAB PO SCH (06:58)
[2021-12-02] MEDS: LEVOTHYROXINE 50 MCG TAB PO SCH (06:59)
[2021-12-02 07:17] LABS: Glucose,Whole Blood 132 mg/dL (70-110)
[2021-12-02] MEDS: SYMBICORT 160-4.5 MCG INHALER INHALATION SCH (07:56)
[2021-12-02 08:19] VITALS: TEMP 97.9
--- NOTE | 2021-12-02 09:00 | CA ---
Transthoracic Echo Report Name: Lili May Age: 56 Gender: F : 1965 Exam Date: 12/01/2021 11:05 Exam Location: [place] [facility] Ht (in): 67 Wt (lb): 229 Ordering Physician: Guadalupe Benton Attending/Referring Phys: Paid Search Manager Lili Kasper, CRISSY Procedure CPT: Indications: RV post EKOS Cardiac Hx: Pulmonary emboli Technical Quality: Good Contrast 1: Total Dose (mL): Contrast 2: Total Dose (mL): MEASUREMENTS (Male / Female) Normal Values 2D ECHO RV Internal Dim ED PLAX 4.0 cm DOPPLER TR Peak Velocity 400.0 cm/s TR Peak Gradient 64.0 mmHg Right Ventricular Systolic Press 66.3 mmHg FINDINGS Left Ventricle Left ventricular ejection fraction is estimated at 55-60 %. Right Ventricle Severe right ventricular dilatation. Severe pulmonary hypertension. Right ventricular systolic pressure estimated at 66 mmHg. Septal flattening. RV strain, TAPSE measuring 14 mm Right Atrium Left Atrium Mitral Valve Aortic Valve Tricuspid Valve Pulmonic Valve Pericardium Trace of pericardial effusion. Aorta CONCLUSIONS As above Previewed by: Dr. Eleazar Aviles MD (Electronically Signed) Final Date: 02 December 2021 08:59
[2021-12-02] MEDS: PANTOPRAZOLE 40 MG TABLET PO SCH (10:06)
[2021-12-02] MEDS: POTASSIUM CHLORIDE ER 10 MEQ TAB.ER.PRT PO SCH (10:06)
[2021-12-02] MEDS: TOPIRAMATE 25 MG TAB PO SCH (10:06)
[2021-12-02] MEDS: lamoTRIgine 100 MG TAB PO SCH (10:06)
[2021-12-02] MEDS: METOPROLOL SUCCINATE (ER) 25 MG TAB.ER.24H PO SCH (10:06)
[2021-12-02] MEDS: APIXABAN 5 MG TAB PO SCH (10:06)
[2021-12-02] MEDS: INSULIN ASPART (NovoLOG) 100 UNIT/ML VIAL SQ SCH ×6 (10:07→17:44)
[2021-12-02] MEDS: ARIPiprazole 5 MG TAB PO SCH (10:07)
--- NOTE | 2021-12-02 11:57 | P.PN ---
Subjective This is a 56-year-old female with a past medical history of pulmonary fibrosis, COPD, hypertension. She follows in the office with Dr. Chang. We are following the patient for pulmonary embolism. Patient presented to the ER with progressively worsening shortness of breath for several days, with hemoptysis 2 days ago. Her d-dimer was elevated, CT of the chest showed extensive bilateral pulmonary embolism involving the main pulmonary arteries and segmental in subsegmental arteries. Her right ventricular is moderately enlarged with evidence of right heart strain and there is also pulmonary infarct in the right lobe. Patient underwent EKOS with Dr. Christie on 11/29/2021. Patient EKG in the ER showed new onset atrial fibrillation. 12/02/2021 Patient has been transferred out of the ICU. She is seen on 3 S. She is doing well. She reports improvement in her shortness of breath she denies chest pain. Patient remains in sinus rhythm on the monitor. Blood pressure elevated this morning prior to medications, will recheck after medications are given. .Echo revealed EF 55-60%, severe right ventricular dilatation, Severe pulmonary hypertension. RVSP of 66 mmHg, which as improved. ASSESSMENT Multiple Pulmonary embolism requiring EKOS New-onset paroxysmal atrial fibrillation, on Eliquis Severe COPD Pulmonary fibrosis Hypertension PLAN Yesterday Eliquis was started, Continue Eliquis 10 mg twice a day 7 days then 5 mg 3 times a day Continue Toprol-XL 25 mg daily Check coverage of Eliquis, case management consulted for assistance. Continue to decrease supplemental oxygen as tolerated and increase activity as tolerated From a cardiology perspective, patient stable to be discharged home. Follow up outpatient with Dr. Chang Nurse practitioner note has been reviewed by physician. Signing provider agrees with the documented findings, assessment, and plan of care. Objective - Vital Signs Vital signs: Vital Signs Temp 97.9 F 12/02/21 08:17 Pulse 85 12/02/21 08:17 Resp 24 12/02/21 08:17 BP 173/96 12/02/21 08:17 Pulse Ox 99 12/02/21 08:17 FiO2 Intake & Output 12/01/21 12/02/21 12/02/21 18:59 06:59 18:59 Intake Total 10 100 Output Total 250 Balance 10 -250 100 Weight 104.4 kg Intake: IV 10 .9 KVO 10 Oral 100 Output: Urine 250 Other: Voiding Method Toilet # Voids 1 - Labs CBC & Chem 7: 12/01/21 06:15 12/01/21 06:15 Labs: Abnormal Lab Results - Last 24 Hours (Table) 12/01/21 12/01/21 12/01/21 Range/Units 11:46 16:37 19:43 POC Glucose (mg/dL) 257 H 176 H 130 H (70-110) mg/dL 12/02/21 Range/Units 07:12 POC Glucose (mg/dL) 132 H (70-110) mg/dL
[2021-12-02 12:09] LABS: Glucose,Whole Blood 150 mg/dL (70-110)
[2021-12-02] MEDS: hydrALAZINE HCL 20 MG/ML 1 ML VIAL IVP PRN (12:19)
--- NOTE | 2021-12-02 12:32 | P.PN ---
Subjective Progress Note Date: 12/02/21 Principal diagnosis: Acute pulmonary embolism This is a 56-year-old female with history of COPD, hypertension, strong family history of thromboembolic disease including father and sister. History of CVA/TIA, patient presented to the ER yesterday with a few weeks history of incr eased shortness of breath, swelling all over, and she was recently seen by her primary care physician who gave her antibiotics and steroids, but was not getting any better. 2 days prior to presentation, patient noted blood-tinged sputum and she was coughing some bright red blood clots. Patient herself never had history of thromboembolic disease, she was noted to have atrial fibrillation with RVR in the ER, and CT angiogram of the chest clearly showed submassive bilateral pulmonary emboli. She was also noted to have a right lower lobe infarct. Patient had an echocardiogram which clearly showed right ventricular strain, patient was seen by cardiology on consultation, and she underwent EKOS thrombolysis. She was sent back to the ICU, and I was asked to see her on consultation. Today the patient is feeling much better, breathing a lot easier, no further episodes of hemoptysis. Patient is on 5 L nasal cannula, O2 saturation is in the mid 90s. Her pulmonary catheter remains in place, patient is also on Cardizem drip, she is in sinus rhythm, she seems to be hemodynamically stable. Patient is to have Cardizem discontinued later today, and she'll be started on metoprolol XL 25 mg daily. Again the patient had strong family history of thromboembolic disease, but she never had workup in the form of hypercoagulable profile to determine the exact etiology of her family history of thromboembolic disease Patient was reevaluated today on 12/01/21, patient is doing well, being transf erred out of the ICU to a cardiac floor. Patient remains on 5 L nasal cannula, she was already transitioned to eliquis. 10 mg twice a day for 7 days then 5 mg twice a day. And she will remain on eliquis lifetime. Patient is hemodynamically stable, does not seem to be in any distress today. Reevaluated today on 12/02/21, patient seems to be doing fairly well, asymptomatic, she is back to her baseline according to her. She is on 3 L nasal cannula, patient had repeat echocardiogram, showed ejection fraction of 55%, her right-sided pressures are 66, and she has obviously severe pulmonary hype rtension. Overall the patient is doing great, she is on eliquis and she needs to be on eliquis lifetime. Patient is on bronchodilators for underlying COPD, and she normally sees Dr. Francois for her underlying COPD. I will clear the patient for discharge home today if cleared by cardiology on the case. Objective - Vital Signs Vital signs: Vital Signs Temp 97.9 F 12/02/21 08:17 Pulse 72 12/02/21 11:59 Resp 22 12/02/21 11:55 BP 170/92 12/02/21 11:55 Pulse Ox 97 12/02/21 11:55 FiO2 Intake & Output 12/01/21 12/02/21 12/02/21 18:59 06:59 18:59 Intake Total 10 100 Output Total 250 Balance 10 -250 100 Weight 104.4 kg Intake: IV 10 .9 KVO 10 Oral 100 Output: Urine 250 Other: Voiding Method Toilet Toilet # Voids 1 0 - Exam Physical Exam: Revealed a 56-year-old female in no distress, on 4 liters nasal cannula and this is what she is on normally at home. Head: Atraumatic, normocephalic. HEENT:[Neck is supple.] [No neck masses.] [No thyromegaly.] [No JVD.] Chest: [Diminished breath sounds and crackles at the bases, no rhonchi no wheezes Cardiac Exam: [Normal S1 and S2, no S3 gallop, no murmur.] Abdomen: [Soft, nontender, no megaly, no rebound, no guarding, normal bowel sounds.] Extremities: [No clubbing, 2+ bipedal edema, patient has acrocyanosis chronic, obviously she had symptoms of Raynaud's disease Neurological Exam: [No focal neurologic deficit.] Alert and oriented 3 Psychiatric: Normal mood, affect and normal mental status examination. Skin: No rashes. - Labs CBC & Chem 7: 12/01/21 06:15 12/01/21 06:15 Labs: Abnormal Lab Results - Last 24 Hours (Table) 12/01/21 12/01/21 12/02/21 Range/Units 16:37 19:43 07:12 POC Glucose (mg/dL) 176 H 130 H 132 H (70-110) mg/dL 12/02/21 Range/Units 11:59 POC Glucose (mg/dL) 150 H (70-110) mg/dL Assessment and Plan Assessment: Impression: Acute pulmonary embolism, right ventricular strain, status post EKOS thrombolytic therapy. New onset atrial fibrillation with RVR secondary to pulmonary embolism History of underlying COPD, normally sees Dr. francois Washed all pulmonary fibrosis or I believe the patient may have history of interstitial lung disease secondary to connective tissue disease however I'm not certain how extensive was her previous workup by her ruby on rails software developer, advised to make sure that she checks with her ruby on rails software developer whether she had previous workup for underlying interstitial lung disease related to connective tissue disease. I am not convinced that the patient has truly IPF. Benign essential hypertension Strong family history of thromboembolic disease/DVT and pulmonary embolism Strongly suspect hypercoagulable state. Recommendation: Continue eliquis, needs to be on it lifetime. Will eventually need genetic evaluation and hypercoagulable profile since she has strong family history of DVT and pulmonary embolism. Continue bronchodilators including Solu-Medrol. Continue Toprol We'll clear the patient to be discharged home if cleared by other consultants on 3 L or 4 L nasal cannula Follow-up with her ruby on rails software developer. We will continue to follow Time with Patient: Less than 30
[2021-12-02 16:25] VITALS: BP 157/81; RESP 23
[2021-12-02 16:44] LABS: Glucose,Whole Blood 172 mg/dL (70-110)
[2021-12-02 16:59] VITALS: PULSE 72
--- NOTE | 2021-12-02 22:28 | P.DS ---
Providers Date of admission: 11/29/21 15:20 Attending physician: Lupis Scott Consults: 11/29/21 15:15 Consult Physician Stat Consulting Provider: Vic Marcial Consult Reason/Comments: acute/chronic resp failure, new onset afib, massive pe Do you want consulting provider notified?: Already Contacted Consult Physician Urgent Consulting Provider: [facility] Consult Reason/Comments: acute/chronic resp failure, new onset afib, massive pe Do you want consulting provider notified?: Yes 12/01/21 08:56 Consult Physician Routine Consulting Provider: Tino White Consult Reason/Comments: EKOS Do you want consulting provider notified?: Already Contacted Primary care physician: Kati Lewis Hospital Course: Diagnoses: Massive bilateral pulmonary embolism with pulmonary infarction and right ventricular strain, improved New-onset atrial fibrillation, rate controlled upon discharge Severe right ventricular dilatation and severe tricuspid regurgitation and severe pulmonary hypertension Acute COPD exacerbation, improved Obesity Hospital course: This is a pleasant 56 years old female with multiple medical problems presents with respiratory symptoms secondary to massive bilateral pulmonary embolism, and she's been treated and monitored closely in the ICU with pulmonary and cardiology team closely. She was treated initially with heparin drip and EKOS transferred later into Eliquis therapeutic dose 10 mg 7 days then 5 mg twice a day. Also patient had new-onset atrial fibrillation with rate controlled upon discharge. Patient also was on Solu-Medrol for COPD exacerbation. Patient showed interval improvement and on the day of discharge she was fully awake and oriented and back to her baseline, she denies chest pain or dyspnea. No chest pain. No difficulty talking or eating or walking. No change in urine or bowel habits. No fever. Patient was eager to go home She was cleared for discharge by camp assistant and pulmonary team today. Her co-pay for Eliquis is $4. Extensive instruction is provided for the patient about the Eliquis doses understanding benefits and she verbalized understanding and acceptance. Also patient will be discharged on tapered prednisone. patient has her on 4 l/m home oxygen as per bedside nurse , pt and documentation eg from ED rn, and they confirmed to me pt has oxygen at home Problems and management plan were discussed with the patient and he verbalized understanding and acceptance Patient was found stable and can be discharged home in guarded however he needs follow-up as an outpatient. Patient was instructed to follow up with PCP Dr. Herrera within one week and patient agrees Patient was instructed to follow up with Dr. Chang and she told me she has appointment on and she agrees with this appointment. And instructed to follow up with health screener Dr. Madison/Dr. Lester in 1-2 weeks and she agrees to call and make appointments. also patient was instructed to follow up with traffic operator Dr. Palacios for hypercoagulable workup Physical exam Gen: patient is a AAOx3, no distress CVS: S1-S2, RRR, no murmur Lungs: B/L CTA, no wheezing, on oxygen via nasal canula Abdomen: soft, no distention, no tenderness, positive bowel sounds Extremity: no leg edema or induration Time spent more than 35 minutes Patient Condition at Discharge: Serious Plan - Discharge Summary Discharge Rx Participant: Yes New Discharge Prescriptions: New Apixaban [Eliquis] 5 mg PO BID 30 Days #70 tab predniSONE 10 mg PO DIRECTED #30 tab Metoprolol Succinate (ER) [Toprol XL] 25 mg PO DAILY #30 tab Continue Albuterol Nebulized [Ventolin Nebulized] 2.5 mg INHALATION RT-Q4H PRN PRN Reason: Shortness Of Breath Albuterol Inhaler [Ventolin Hfa Inhaler] 2 puff INHALATION RT-Q6H PRN PRN Reason: Difficulty breathing Omeprazole [PriLOSEC] 20 mg PO BID modafiniL [Provigil] 200 mg PO DAILY Levothyroxine Sodium [Synthroid] 50 mcg PO DAILY lamoTRIgine 200 mg PO DAILY Furosemide [Lasix] 20 mg PO AC-BID Fluticasone/Umeclidin/Vilanter [Trelegy Ellipta 100-62.5-25] 1 puff INHALATION RT-DAILY Topiramate [Topamax] 50 mg PO BID Topiramate [Topamax] 25 mg PO BID rOPINIRole HCL [Requip] 0.5 mg PO HS Levothyroxine Sodium [Levo-T] 37.5 mcg PO DAILY ARIPiprazole 5 mg PO DAILY Discontinued Bisoprolol/Hydrochlorothiazide [Ziac 10-6.25 MG] 1 tab PO DAILY Potassium Chloride [Potassium Chloride ER] 10 meq PO BID No Action ALPRAZolam 1 mg PO TID PRN PRN Reason: Anxiety Discharge Medication List ALPRAZolam 1 mg PO TID PRN 11/17/13 [History] Albuterol Inhaler [Ventolin Hfa Inhaler] 2 puff INHALATION RT-Q6H PRN 04/10/15 [History] Albuterol Nebulized [Ventolin Nebulized] 2.5 mg INHALATION RT-Q4H PRN 04/10/15 [History] ARIPiprazole 5 mg PO DAILY 11/29/21 [History] Fluticasone/Umeclidin/Vilanter [Trelegy Ellipta 100-62.5-25] 1 puff INHALATION RT-DAILY 11/29/21 [History] Furosemide [Lasix] 20 mg PO AC-BID 11/29/21 [History] Levothyroxine Sodium [Levo-T] 37.5 mcg PO DAILY 11/29/21 [History] Levothyroxine Sodium [Synthroid] 50 mcg PO DAILY 11/29/21 [History] Omeprazole [PriLOSEC] 20 mg PO BID 11/29/21 [History] Topiramate [Topamax] 25 mg PO BID 11/29/21 [History] Topiramate [Topamax] 50 mg PO BID 11/29/21 [History] lamoTRIgine 200 mg PO DAILY 11/29/21 [History] modafiniL [Provigil] 200 mg PO DAILY 11/29/21 [History] rOPINIRole HCL [Requip] 0.5 mg PO HS 11/29/21 [History] Apixaban [Eliquis] 5 mg PO BID 30 Days #70 tab 12/01/21 [Rx] Metoprolol Succinate (ER) [Toprol XL] 25 mg PO DAILY #30 tab 12/02/21 [Rx] predniSONE 10 mg PO DIRECTED #30 tab 12/02/21 [Rx] Follow up Appointment(s)/Referral(s): Vic Marcial MD [STAFF PHYSICIAN] - 1 Week ([facility]: [facility] Patient needs to call to make a follow up appointment. ) Frandy Palacios MD [STAFF PHYSICIAN] - 2 Weeks (Blood disease Doctor for your coagulation. [facility] Patient needs to call to make a follow up appointment. ) Debbie Parikh MD [Primary Care Provider] - 1-2 days ([facility]. Patient needs to call and make a follow up appointment. we recommend to check your blood tests with your doctor including your (complete cell count) and ( basic metabolic panel) and potassium level) Luis Eduardo Chang MD [STAFF PHYSICIAN] - 1 Week (heart doctor: [facility]. Patient needs to call and make a follow up appointment. ) Patient Instructions/Handouts: A-fib (Atrial Fibrillation) (DC), Pulmonary Embolism (DC), Viral Pneumonia (DC) Activity/Diet/Wound Care/Special Instructions: heart healthy diet , low sugar diet activity is restricted till you see your doctor your potassium pill were held upon discharge, please recheck your potassium level with your doctor in 2-3 days, and resume your potassium pills accordingly you are encouraged to eat fruit and vegetable while you are off potassium pills Discharge Disposition: HOME SELF-CARE
== END 2021-12-02 18:17 | disposition home or self-care (01) | DRG 166 ==
LOC: EC 12:02 → 2SICU 15:20 → 3SCARD 12-01 08:36
PROVIDERS: ADMIT Hospitalist; ATTEND Hospitalist
PROC: 3E06317 Introduction of Other Thrombolytic into Central Artery, Percutaneous Approach (ICD-10-PCS; principal; 2021-11-29 17:26)
PROC: 02FR3Z0 Fragmentation of Left Pulmonary Artery, Percutaneous Approach, Ultrasonic (ICD-10-PCS; principal; 2021-11-29 17:26)
DX: I26.99 Other pulmonary embolism without acute cor pulmonale (principal); J96.21 Acute and chronic respiratory failure with hypoxia; I48.92 Unspecified atrial flutter; J45.901 Unspecified asthma with (acute) exacerbation; R04.2 Hemoptysis; I07.1 Rheumatic tricuspid insufficiency; E03.9 Hypothyroidism, unspecified; E66.9 Obesity, unspecified; Z68.36 Body mass index [BMI] 36.0-36.9, adult; F17.210 Nicotine dependence, cigarettes, uncomplicated; I10 Essential (primary) hypertension; I27.20 Pulmonary hypertension, unspecified; I48.0 Paroxysmal atrial fibrillation; J43.9 Emphysema, unspecified; J84.10 Pulmonary fibrosis, unspecified; Z20.822 Contact with and (suspected) exposure to COVID-19; Z79.01 Long term (current) use of anticoagulants; Z79.890 Hormone replacement therapy; Z79.899 Other long term (current) drug therapy; Z82.3 Family history of stroke; Z82.49 Family history of ischemic heart disease and other diseases of the circulatory system; Z86.73 Personal history of transient ischemic attack (TIA), and cerebral infarction without residual deficits; Z83.2 Family history of diseases of the blood and blood-forming organs and certain disorders involving the immune mechanism; Z86.14 Personal history of Methicillin resistant Staphylococcus aureus infection
CPT/HCPCS: 36415; 37211; 71046; 71275; 76937; 80048; 80053; 83036; 83605; 83735; 83880; 84484; 85025; 85379; 85384; 85610; 85730; 87502; 87635; 93005; 93306; 93308; 94640; 96365; 96366; 96368; 96375; 99291

== ENCOUNTER → 2022-03-06 | Outpatient (CLI) | payer MEDICARE, OTHER ==
--- NOTE | 2022-03-06 09:24 | XR ---
EXAMINATION TYPE: XR chest 2V DATE OF EXAM: 03/06/2022 COMPARISON: 11/29/2021, 12/30/2019 TECHNIQUE: PA and lateral views submitted. HISTORY: Cough FINDINGS: Heart is enlarged and there is bilateral enlargement of pulmonary arteries. Bilateral hilar prominenc e noted. Adenopathy in the differential diagnosis. Surgical changes left shoulder. Lower lobe consoli dation and small effusion. Somewhat nodular appearing density along the right lung base. IMPRESSION: 1. Hyperinflation suggests COPD and there is cardiac enlargement with right lower lobe infiltrate and small effusion. Nodular density may be related to recent CT scan findings of consolidation rather th an true pulmonary nodule. Follow-up resolution recommended. 2. Right hilar enlargement corresponding CT abnormality in hilar adenopathy. Correlate clinically.
== END | disposition home or self-care (01) ==
LOC: RADXRMAIN 08:42
PROVIDERS: ATTEND Internal Medicine Interventional Cardiology
DX: I26.99 Other pulmonary embolism without acute cor pulmonale (principal)
CPT/HCPCS: 71046

== ENCOUNTER → 2022-03-07 | Outpatient (CLI) | payer MEDICARE, OTHER ==
--- NOTE | 2022-03-07 14:36 | NM ---
EXAMINATION TYPE: NM pul vent and perfuse DATE OF EXAM: 03/07/2022 COMPARISON: Chest x-ray 03/06/2022 HISTORY: Shortness of breath TECHNIQUE: Utilizing inhalation of 35.6 mCi Tc 99m DTPA aerosol and intravenous injection of 5.1 mCi of Tc 99m MAA, ventilation and perfusion images are acquired post injection in multiple projections. FINDINGS: There is abnormal perfusion and ventilation the right lung base compatible with x-ray abnormality and compatible with a triple. There appears to be reduced uptake on ventilation imaging with central clumping of radiotracer likely on the basis of chronic obstructive pulmonary disease. No sizable mismatched defects. Additional small matched defect in the right upper lobe corresponding to the x-ray abnormality also compatible with triple match. IMPRESSION: Triple match within the right lung compatible with PIOPED criteria of intermediate probability for pu lmonary embolism.
== END | disposition home or self-care (01) ==
LOC: RADNMMAIN 12:54
PROVIDERS: ATTEND Internal Medicine Interventional Cardiology
DX: R06.02 Shortness of breath (principal)
CPT/HCPCS: 78582; A9540; A9567

== ENCOUNTER → 2022-04-05 | Outpatient (CLI) | payer MEDICARE, OTHER ==
[2022-04-05 23:28] LABS: HCT 48.5 % (37.2-46.3); HGB 14.6 g/dL (12.0-15.0); MCH 26.2 pg (27.0-32.0); MCHC 30.1 g/dL (32.0-37.0); MCV 86.9 fL (80.0-97.0); Mean Platelet Volume 10.3 fL (9.5-12.2); NRBC Per 100 WBC 0 /100 WBCS (0.0-0.0); Platelet Count 316 X 10*3/uL (140-440); RBC 5.58 X 10*6/uL (4.10-5.20); RDW 15.5 % (11.5-14.5)
[2022-04-06 02:08] LABS: African American GFR (CKD) 58.5 (60.0-200.0); Anion Gap 13.9 mmol/L (10.00-18.00); Blood Urea Nitrogen 22.5 mg/dL (9.0-27.0); Carbon Dioxide 25.1 mmol/L (20.0-27.5); Non-African American GFR(CKD) 50.5 (60.0-200.0)
== END | disposition home or self-care (01) ==
LOC: LABPAT 15:51
PROVIDERS: ATTEND Internal Medicine Interventional Cardiology
DX: Z01.812 Encounter for preprocedural laboratory examination (principal); R06.02 Shortness of breath
CPT/HCPCS: 80051; 82565; 84520; 85027

== ENCOUNTER → 2022-04-14 | Day surgery (SDC) | payer MEDICARE, OTHER ==
[2022-04-12 15:52] VITALS: BMI 32.8
[~2022-04-14] MED LIST: ACETAMINOPHEN TAB 500 MG TAB PO ONE; ALPRAZolam 0.25 MG TAB PO PRN; ALPRAZolam 0.5 MG TAB PO PRN; ASPIRIN 325 MG TAB PO ONE; ATORVASTATIN 80 MG TAB PO ONE; ENALAPRILAT 1.25 MG/ML 1 ML VIAL ONE; HEPARIN SODIUM 1,000 UN/ML (10ML VL) IVP ONE; HEPARIN SODIUM 1,000 UN/ML (10ML VL) ONE; HEPARIN SODIUM,PORCINE 10,000 UNIT in SODIUM CHLORIDE 0.9% 1,000 ML IRRIGATION PRN; HEPARIN SODIUM,PORCINE 2,500 UNIT in SODIUM CHLORIDE 0.9% 250 ML IRRIGATION PRN; HYDROmorphone 1 MG/ML 1 ML SYRINGE IVP ONE; HYDROmorphone 1 MG/ML 1 ML SYRINGE ONE; IOPAMIDOL-300 100ML BTL INJ ONE; LIDOCAINE 1% INJ 10MG/ML (5 ML VIAL-PF) IV ONE; MIDAZOLAM 2 MG/2 ML VIAL IVP ONE; NITROGLYCERIN SL TABS 0.4 MG TAB SUBLINGUAL PRN; ONDANSETRON 4 MG/2 ML VIAL ONE; RX INFO: IV CONTRAST WAS GIVEN 1 EACH MISC MISCELLANE PRN; SODIUM CHLORIDE 0.9% 1,000 ML IV SCH; SODIUM CHLORIDE 0.9% 1,000 ML in EMPTY BAG 1 BAG IV ONE; VERAPAMIL 2.5 MG/ML 2 ML AMP ONE; hydrALAZINE HCL 20 MG/ML 1 ML VIAL ONE
[2022-04-14 07:08] LABS: Basophils # (A) 0.1 k/uL (0-0.2); Basophils % (A) 1 %; Eosinophils # (A) 0.1 k/uL (0-0.7); Eosinophils % (A) 2 %; HCT 43.1 % (34.0-46.0); HGB 13.6 gm/dL (11.4-16.0); Hypochromasia Moderate; Lymphocytes # (A) 1.9 k/uL (1.0-4.8); Lymphocytes % (A) 20 %; MCH 27.2 pg (25.0-35.0); MCHC 31.7 g/dL (31.0-37.0); Mean Platelet Volume 8.9; Monocytes # (A) 0.6 k/uL (0-1.0); Monocytes % (A) 6 %; Neutrophils # (A) 6.6 k/uL (1.3-7.7); Neutrophils % (A) 70 %; Platelet Count 204 k/uL (150-450); RBC 5.01 m/uL (3.80-5.40); RDW 15.4 % (11.5-15.5); WBC 9.4 k/uL (3.8-10.6)
[2022-04-14 07:29] VITALS: TEMP 97.9
[2022-04-14] MEDS: VERAPAMIL SYRINGE (5 MG/10 ML) INTRAARTER ONE ×2 (09:56→10:16)
--- NOTE | 2022-04-14 10:34 | P.PCN ---
Date of Procedure: 04/14/22 Operative Findings: CARDIAC CATHETERIZATION PERFORMING PHYSICIAN: Luis Eduardo Chang MD, RPVI PROCEDURE PERFORMED: 1. Selective right and left coronary angiogram 2. Left heart catheterization 3. Right heart catheterization INDICATION: This is a 56-year-old female patient with history of pulmonary embolism and pulmonary hypertension who continues to be symptomatic into shortness of breath with exertion lower extremities edema. She underwent an echo recently and that showed severe right ventricular dilation with severe pulmonary hypertension. In the light of that and because she continues to be symptomatic and for further investigation of the pulmonary hypertension etiology she was brought today to undergo a right and left heart catheterization COMPLICATION: None APPROACH: Right radial artery Right basilic vein LEVEL OF SEDATION: Moderate with a sedation length of 25 minutes PROCEDURE DESCRIPTION: After obtaining an informed consent, the patient was brought to cardiac phlebotomy lab assistant. Local anesthesia was performed using lidocaine subcutaneously. The right radial artery was cannulated using Seldinger technique, the guidewire passed easily, following that we advanced a 5-Ethiopian sheath dilator assembly, the wire and dilator were removed and sheath was flushed. The right basilic vein was cannulated using micropuncture technique, the micropuncture wire passed easily then in place a 6-Ethiopian sheath. Following that, 2 mg of verapamil along with 5000 unit heparin were given. Right heart catheterization was performed using 6-Ethiopian [place] catheter. Left heart catheterization was performed using 6-Ethiopian pigtail catheter. Selective right and left coronary angiogram using a 6-Ethiopian JR4 and JL 3.5 catheters. The procedure was completed there was no complication. SELECTIVE CORONARY ANGIOGRAM: The right coronary artery: Large caliber vessel and a dominant vessel. The RCA in the midportion has mild disease only appeared to be in the range of 20-30%. After that bifurcates into PDA and PLV branches and both appeared to be angiographically normal and proximally the RCA is angiographically normal Left main: Is angiographically normal. Bifurcates into an LCx and LAD The left circumflex: Large caliber vessel and nondominant vessel. The LCx has mild disease in the proximal portion by the bifurcation of a large OM branch which appeared to be angiographically normal. The LCx in the AV groove after that appears to be angiographically normal and gives rise into OM to which worked almost like PDA. The left anterior descending artery: Large caliber vessel. The LAD is angiographically normal. Gives rises into a large diagonal branch which appeared to be angiographically normal. HEMODYNAMICS: The pulmonary capillary wedge pressure was measured at 50 mmHg but that is probably inaccurate because of catheter positions. The LVEDP was 10 mmHg The PA pressures were as follow systolic 90 and diastolic of 37 and mean of 57 mmHg RV pressures were as follow systolic of 101 and end-diastolic of 20 mmHg The right atrial pressure was 20 mmHg Cardiac output was 3.3 to liter per minute with a cardiac index of 1.57 L/m/m. Please note that the patient has severe TR and the cardiac output probably was not accurate. Transpulmonary gradient was 47 mmHg Pulmonary vascular resistance was 14 Wood units CONCLUSION: 1. Mild nonobstructive coronary artery disease 2. Severe pulmonary hypertension. This is likely to be related to WHO group 1 versus WHO group 3 3. Elevated right-sided filling pressure. Normal left sided filling pressure POSTPROCEDURE MANAGEMENT: The patient need to be referred to [facility] for further evaluation of the severe pulmonary hypertension and further evaluation of pulmonary decortication
[2022-04-14 15:57] VITALS: RESP 16
[2022-04-14 15:59] VITALS: BP 131/77; PULSE 72
== END ==
LOC: CATHCVL 06:31
PROVIDERS: ATTEND Internal Medicine Interventional Cardiology
DX: I25.10 Atherosclerotic heart disease of native coronary artery without angina pectoris (principal); R06.02 Shortness of breath; I27.20 Pulmonary hypertension, unspecified; Z86.711 Personal history of pulmonary embolism
CPT/HCPCS: 85025; 93596; J2250; J0360; J2001; J1644; J1170; Q9967; 36410; 76937; 93460

== ENCOUNTER 2022-07-29 18:53 | Inpatient (IN) | payer MEDICARE, OTHER ==
--- NOTE | 2022-07-29 19:54 | ED ---
SOB HPI - General Chief Complaint: Shortness of Breath Stated Complaint: KVNG Time Seen by Provider: 07/29/22 19:02 Source: patient, RN notes reviewed Mode of arrival: EMS Limitations: no limitations - History of Present Illness Initial Comments: This is a 56-year-old female who presents to the emergency department for shortness of breath. Patient is on 5L of oxygen at home for COPD and has shortness of breath on a fairly regular basis, however she states that she has had increasing shortness of breath over the last 3 days. She does have a history of PEs and is currently being treated with eliquis. Denies any chest pain. When EMS was called to her house, they noted that she was mottled and her lips appeared cyanotic. She received a DuoNeb breathing treatment on route, which did improve her oxygenation. She is currently on 6L of oxygen via nasal cannula as opposed to the 5L she is on at home and is falling asleep during initial examination. Denies any fevers, chills, sore throat, chest pain, palpitations, abdominal pain, nausea, vomiting, diarrhea, back pain, or headaches. MD Complaint: shortness of breath Onset/Timin -: days(s) Treatments Prior to Arrival: oxygen - Related Data Home Oxygen Therapy: Yes Home Oxygen Amount: other (5) Home Medications Medication Instructions Recorded Confirmed ALPRAZolam 1 mg PO TID PRN 11/17/13 07/29/22 Albuterol Inhaler [Ventolin Hfa 2 puff INHALATION RT-Q6H PRN 04/10/15 07/29/22 Inhaler] Albuterol Nebulized [Ventolin 2.5 mg INHALATION RT-Q4H PRN 04/10/15 07/29/22 Nebulized] ARIPiprazole 5 mg PO DAILY 11/29/21 07/29/22 Fluticasone/Umeclidin/Vilanter 1 puff INHALATION RT-DAILY 11/29/21 07/29/22 [Trelegy Ellipta 100-62.5-25] Furosemide [Lasix] 20 mg PO AC-BID 11/29/21 07/29/22 Levothyroxine Sodium [Levo-T] 37.5 mcg PO DAILY 11/29/21 07/29/22 Levothyroxine Sodium [Synthroid] 50 mcg PO DAILY 11/29/21 07/29/22 Omeprazole [PriLOSEC] 20 mg PO BID 11/29/21 07/29/22 lamoTRIgine 200 mg PO DAILY 11/29/21 07/29/22 modafiniL [Provigil] 200 mg PO DAILY 11/29/21 07/29/22 rOPINIRole HCL [Requip] 0.5 mg PO HS 11/29/21 07/29/22 Metoprolol Succinate [Toprol XL] 50 mg PO DAILY 07/29/22 07/29/22 Topiramate [Topamax] 25 mg PO BID 07/29/22 07/29/22 Previous Rx's Medication Instructions Recorded Apixaban [Eliquis] 5 mg PO BID 30 Days #70 tab 12/01/21 Allergies Allergy/AdvReac Type Severity Reaction Status Date / Time No Known Allergies Allergy Verified 07/29/22 21:14 Review of Systems ROS Statement: Those systems with pertinent positive or pertinent negative responses have been documented in the HPI. ROS Other: All systems not noted in ROS Statement are negative. Past Medical History Past Medical History: Asthma, COPD, Hypertension, Thyroid Disorder Additional Past Medical History / Comment(s): pulmonary hypertension, emphysema History of Any Multi-Drug Resistant Organisms: MRSA Date of last positivie culture/infection: 12/26/19 MDRO Source:: TISSUE Past Surgical History: Orthopedic Surgery Additional Past Surgical History / Comment(s): tubal pregnancies Past Anesthesia/Blood Transfusion Reactions: No Reported Reaction Past Psychological History: Anxiety, Depression Smoking Status: Current every day smoker Past Alcohol Use History: None Reported Past Drug Use History: None Reported - Past Family History Sister(s) Family Medical History: Deep Vein Thrombosis (DVT) Father History Unknown: Yes Family Medical History: Coronary Artery Disease (CAD), CVA/TIA, Deep Vein Thrombosis (DVT) Mother History Unknown: Yes Family Medical History: Hypertension General Exam Limitations: no limitations General appearance: alert, other (drowsy) Head exam: Present: atraumatic, normocephalic, normal inspection Respiratory exam: Present: other (Wheezing in all lung powell, worse in the left upper and lower lobe with coarse sounds on the left side as well.) Cardiovascular Exam: Present: regular rate, normal rhythm, normal heart sounds. Absent: systolic murmur, diastolic murmur, rubs, gallop, clicks Neurological exam: Present: alert, oriented X3, CN II-XII intact Psychiatric exam: Present: normal affect, normal mood Skin exam: Present: warm, dry, intact, normal color. Absent: rash Course Vital Signs 07/29/22 07/29/22 07/29/22 18:55 22:21 22:35 Temperature Pulse Rate 58 L 53 L 56 L Respiratory 28 H 14 Rate Blood Pressure 108/72 124/99 O2 Sat by Pulse 99 99 Oximetry 07/29/22 07/29/22 22:39 22:58 Temperature 97.5 F L Pulse Rate 61 Respiratory Rate Blood Pressure O2 Sat by Pulse Oximetry Medical Decision Making - Medical Decision Making This is a 56-year-old female who presents to the emergency department for difficulty breathing. Was pt. sent in by a medical professional or institution? @ -No Did you speak to anyone other than the patient for history? @ -No Did you review nursing and triage notes? @ -Yes, and I agree, it is accurate with regards to the patient's symptoms. Were old charts reviewed? @ -No Differential Diagnosis? @ -Differential Dyspnea: Coronary syndrome, arrhythmia, tamponade, asthma, COPD, pulmonary embolism, pneumonia, pneumothorax, pulmonary effusion, anaphylaxis, diabetic ketoacidosis, flailed chest, pulmonary contusion, diaphragmatic rupture, anemia, neuromuscular, this is not meant to be an all-inclusive list. EKG interpreted by me (3pts min.)? @ -Sinus bradycardia. Right axis deviation. Right bundle branch block. Ventricular rate 51 bpm, IN interval 182 ms, QRS duration 122 ms, QTC 494 ms. X-rays interpreted by me (1pt min.)? @ -Chest x-ray obtained. My interpretation reveals cardiomegaly and atelectasis at the bilateral lung bases. CT interpreted by me (1pt min.)? @ -CT angiogram of the chest was obtained. My interpretation identifies cardiomegaly and pulmonary infiltrates, as well as bilateral lower lobe pulmonary emboli. What testing was considered but not performed? (CT, X-rays, U/S, labs)? Why? @ -None What meds were considered but not given? Why? @ -None Did you discuss the management of the patient with other professionals? @ -Yes, Luica Fuentes with [facility] who accepts the patient for admission. Did you reconcile home meds? @ -Yes Was smoking cessation discussed for >3mins.? @ -No Was critical care preformed (if so, how long)? @ -No Were there social determinants of health that impacted care today? How? (Homelessness, low income, unemployed, alcoholism, drug addiction, transportation, low edu. Level, literacy, decrease access to med. care, nursing home, rehab)? @ -No Was there de-escalation of care discussed even if they declined? (Discuss DNR or withdrawal of care, Hospice)? @ -No What co-morbidities impacted this encounter? (DM, HTN, Smoking, COPD, CAD, Cancer, CVA, Hep., AIDS, mental health diagnosis, sleep apnea, morbid obesity)? @ -Asthma, COPD, HTN Was patient admitted / discharged? @ -Admitted. Chest x-ray reveals cardiomegaly and increased left-sided atelectasis. Lab work obtained revealing an elevated d-dimer. CTA of the chest was subsequently obtained. This revealed improvement in pulmonary infiltrates and stable PEs, which are currently treated with Eliquis. BNP is also elevated at 4930. Given that there is no leukocytosis and the patient is afebrile, with improving infiltrates on the CTA, findings are more suggestive of a COPD exacerbation vs infectious process. Pro-calcitonin ordered with results pending at the time of admission. BNP elevation and the patient's rhonchus breath sounds are also consistent with a CHF exacerbation. Patient given 40 mg of IV Lasix and 125 mg of Solu-Medrol. Additional DuoNeb breathing treatment administered in the emergency department. Patient admitted to medicine for COPD and CHF exacerbations with cardiology and pulmonology consults placed. Undiagnosed new problem with uncertain prognosis? @ -None Drug Therapy requiring intensive monitoring for toxicity (Heparin, Nitro, Insulin, Cardizem)? @ -None Were any procedures done? @ -None Diagnosis/symptom? @ -CHF exacerbation, COPD exacerbation Acute, or Chronic, or Acute on Chronic? @ -Acute on chronic Uncomplicated (without systemic symptoms) or Complicated (systemic symptoms)? @ -Complicated Side effects of treatment? @ -None Exacerbation, Progression, or Severe Exacerbation] @ -Not applicable Poses a threat to life or bodily function? @ -Severe exacerbation This case was discussed in detail with the attending ED physician, Dr. Diehl. Presentation, findings, and treatment plan discussed in detail as well. - Lab Data Result diagrams: 07/29/22 19:39 07/29/22 19:39 Lab Results 07/29/22 07/29/22 07/29/22 Range/Units 19:39 19:39 19:39 WBC 7.9 (3.8-10.6) k/uL RBC 4.63 (3.80-5.40) m/uL Hgb 12.4 D (11.4-16.0) gm/dL Hct 40.1 (34.0-46.0) % MCV 86.7 (80.0-100.0) fL MCH 26.8 (25.0-35.0) pg MCHC 31.0 (31.0-37.0) g/dL RDW 16.3 H (11.5-15.5) % Plt Count 181 (150-450) k/uL MPV 8.1 Neutrophils % 67 % Lymphocytes % 23 % Monocytes % 6 % Eosinophils % 1 % Basophils % 1 % Neutrophils # 5.3 (1.3-7.7) k/uL Lymphocytes # 1.8 (1.0-4.8) k/uL Monocytes # 0.5 (0-1.0) k/uL Eosinophils # 0.1 (0-0.7) k/uL Basophils # 0.1 (0-0.2) k/uL Hypochromasia Moderate Poikilocytosis Slight Anisocytosis Slight PT 12.8 H (9.0-12.0) sec INR 1.3 H (<1.2) APTT 23.3 (22.0-30.0) sec D-Dimer 1.41 H (<0.60) mg/L FEU Sodium 138 (137-145) mmol/L Potassium 3.7 (3.5-5.1) mmol/L Chloride 102 (98-107) mmol/L Carbon Dioxide 28 (22-30) mmol/L Anion Gap 8 mmol/L BUN 27 H (7-17) mg/dL Creatinine 0.98 (0.52-1.04) mg/dL Est GFR (CKD-EPI)AfAm 75 (>60 ml/min/1.73 sqM) Est GFR (CKD-EPI)NonAf 65 (>60 ml/min/1.73 sqM) Glucose 147 H (74-99) mg/dL Plasma Lactic Acid Amador (0.7-2.0) mmol/L Calcium 8.7 (8.4-10.2) mg/dL Total Bilirubin 0.7 (0.2-1.3) mg/dL AST 34 (14-36) U/L ALT 26 (4-34) U/L Alkaline Phosphatase 102 (38-126) U/L Troponin I (0.000-0.034) ng/mL NT-Pro-B Natriuret Pep pg/mL Total Protein 6.0 L (6.3-8.2) g/dL Albumin 3.4 L (3.5-5.0) g/dL Influenza Type A (PCR) (Not Detectd) Influenza Type B (PCR) (Not Detectd) RSV (PCR) (Not Detectd) SARS-CoV-2 (PCR) (Not Detectd) 07/29/22 07/29/22 07/29/22 Range/Units 19:39 19:39 19:39 WBC (3.8-10.6) k/uL RBC (3.80-5.40) m/uL Hgb (11.4-16.0) gm/dL Hct (34.0-46.0) % MCV (80.0-100.0) fL MCH (25.0-35.0) pg MCHC (31.0-37.0) g/dL RDW (11.5-15.5) % Plt Count (150-450) k/uL MPV Neutrophils % % Lymphocytes % % Monocytes % % Eosinophils % % Basophils % % Neutrophils # (1.3-7.7) k/uL Lymphocytes # (1.0-4.8) k/uL Monocytes # (0-1.0) k/uL Eosinophils # (0-0.7) k/uL Basophils # (0-0.2) k/uL Hypochromasia Poikilocytosis Anisocytosis PT (9.0-12.0) sec INR (<1.2) APTT (22.0-30.0) sec D-Dimer (<0.60) mg/L FEU Sodium (137-145) mmol/L Potassium (3.5-5.1) mmol/L Chloride (98-107) mmol/L Carbon Dioxide (22-30) mmol/L Anion Gap mmol/L BUN (7-17) mg/dL Creatinine (0.52-1.04) mg/dL Est GFR (CKD-EPI)AfAm (>60 ml/min/1.73 sqM) Est GFR (CKD-EPI)NonAf (>60 ml/min/1.73 sqM) Glucose (74-99) mg/dL Plasma Lactic Acid Amador 1.9 (0.7-2.0) mmol/L Calcium (8.4-10.2) mg/dL Total Bilirubin (0.2-1.3) mg/dL AST (14-36) U/L ALT (4-34) U/L Alkaline Phosphatase (38-126) U/L Troponin I 0.019 (0.000-0.034) ng/mL NT-Pro-B Natriuret Pep 4930 pg/mL Total Protein (6.3-8.2) g/dL Albumin (3.5-5.0) g/dL Influenza Type A (PCR) (Not Detectd) Influenza Type B (PCR) (Not Detectd) RSV (PCR) (Not Detectd) SARS-CoV-2 (PCR) (Not Detectd) 07/29/22 Range/Units 19:55 WBC (3.8-10.6) k/uL RBC (3.80-5.40) m/uL Hgb (11.4-16.0) gm/dL Hct (34.0-46.0) % MCV (80.0-100.0) fL MCH (25.0-35.0) pg MCHC (31.0-37.0) g/dL RDW (11.5-15.5) % Plt Count (150-450) k/uL MPV Neutrophils % % Lymphocytes % % Monocytes % % Eosinophils % % Basophils % % Neutrophils # (1.3-7.7) k/uL Lymphocytes # (1.0-4.8) k/uL Monocytes # (0-1.0) k/uL Eosinophils # (0-0.7) k/uL Basophils # (0-0.2) k/uL Hypochromasia Poikilocytosis Anisocytosis PT (9.0-12.0) sec INR (<1.2) APTT (22.0-30.0) sec D-Dimer (<0.60) mg/L FEU Sodium (137-145) mmol/L Potassium (3.5-5.1) mmol/L Chloride (98-107) mmol/L Carbon Dioxide (22-30) mmol/L Anion Gap mmol/L BUN (7-17) mg/dL Creatinine (0.52-1.04) mg/dL Est GFR (CKD-EPI)AfAm (>60 ml/min/1.73 sqM) Est GFR (CKD-EPI)NonAf (>60 ml/min/1.73 sqM) Glucose (74-99) mg/dL Plasma Lactic Acid Amador (0.7-2.0) mmol/L Calcium (8.4-10.2) mg/dL Total Bilirubin (0.2-1.3) mg/dL AST (14-36) U/L ALT (4-34) U/L Alkaline Phosphatase (38-126) U/L Troponin I (0.000-0.034) ng/mL NT-Pro-B Natriuret Pep pg/mL Total Protein (6.3-8.2) g/dL Albumin (3.5-5.0) g/dL Influenza Type A (PCR) Not Detected (Not Detectd) Influenza Type B (PCR) Not Detected (Not Detectd) RSV (PCR) Not Detected (Not Detectd) SARS-CoV-2 (PCR) Not Detected (Not Detectd) - Radiology Data Radiology results: report reviewed, image reviewed Disposition Clinical Impression: Acute exacerbation of CHF (congestive heart failure), COPD exacerbation Disposition: ADMITTED IP TO THIS HOSP
--- NOTE | 2022-07-29 20:23 | XR ---
EXAMINATION TYPE: XR chest 2V DATE OF EXAM: 07/29/2022 COMPARISON: 03/06/2022 HISTORY: Short of breath TECHNIQUE: FINDINGS: Heart is enlarged. There is some mild atelectasis at the lung bases. No heart failure. No p leural effusion. There are chest leads. There is previous left shoulder surgery. There are no hilar m asses. IMPRESSION: Cardiomegaly. There is some mild atelectasis at the lung bases which is increased on the left side compared to old exam cardiomegaly without change.
[2022-07-29 20:33] LABS: Anisocytosis Slight; Basophils # (A) 0.1 k/uL (0-0.2); Basophils % (A) 1 %; Eosinophils # (A) 0.1 k/uL (0-0.7); Eosinophils % (A) 1 %; HCT 40.1 % (34.0-46.0); Hypochromasia Moderate; Lymphocytes # (A) 1.8 k/uL (1.0-4.8); Lymphocytes % (A) 23 %; MCH 26.8 pg (25.0-35.0); MCV 86.7 fL (80.0-100.0); Mean Platelet Volume 8.1; Monocytes # (A) 0.5 k/uL (0-1.0); Monocytes % (A) 6 %; Neutrophils # (A) 5.3 k/uL (1.3-7.7); Neutrophils % (A) 67 %; Platelet Count 181 k/uL (150-450); Poikilocytosis Slight; RBC 4.63 m/uL (3.80-5.40); RDW 16.3 % (11.5-15.5); WBC 7.9 k/uL (3.8-10.6)
[2022-07-29 20:38] LABS: Albumin 3.4 g/dL (3.5-5.0); Calcium 8.7 mg/dL (8.4-10.2); Potassium 3.7 mmol/L (3.5-5.1); Total Bilirubin 0.7 mg/dL (0.2-1.3)
[2022-07-29 20:41] LABS: HGB 12.4 gm/dL (11.4-16.0)
[2022-07-29 20:43] LABS: INR 1.3 (<1.2); Partial Thromboplastin Time 23.3 sec (22.0-30.0); Prothrombin Time 12.8 sec (9.0-12.0)
--- NOTE | 2022-07-29 21:31 | CT ---
EXAMINATION TYPE: CT chest angio for PE DATE OF EXAM: 07/29/2022 COMPARISON: 11/29/2021 HISTORY: KVNG. Lips are cyanotic. Elevated Dimer. CT DLP: 564.9 mGycm Automated exposure control for dose reduction was used. CONTRAST: Performed with IV Contrast, patient injected with 100cc mL of Isovue 300. Images obtained from the thoracic inlet to the diaphragm with the IV contrast. There are Three-D post processed images. There is extensive thrombus along the laws of the lower lobe pulmonary arteries bilaterally. There a re large central pulmonary arteries. Heart is enlarged. No pericardial effusion. There are some inter stitial infiltrates and atelectasis in the mid and lower lung powell. No pleural effusion. No evidenc e of a pulmonary mass. The thoracic spine is intact. No compression fracture. Sternum is intact. No evidence of rib fracture . There is reflux of contrast into the inferior vena cava. IMPRESSION: Multiple bilateral lower lobe chronic pulmonary emboli without a significant improvement compared to old exam. No evidence of any new pulmonary embolism. Cardiomegaly. Contrast reflux into the inferior vena cava consistent with some heart failure and not changed. There is improvement in the pulmonary infiltrates compared to old exam. There is some clearing of the right pleural effusion.
[2022-07-29] MEDS ORDERED: FUROSEMIDE 10 MG/ML 4 ML VIAL IV STA (21:40)
[2022-07-29] MEDS ORDERED: methylPREDNISolone SOD SUCCI 125 MG/2 ML VIAL IV STA (21:55)
[2022-07-29] MEDS ORDERED: NALOXONE 0.4 MG/ML 1 ML VIAL IV PRN (22:03)
[2022-07-29] MEDS ORDERED: ONDANSETRON 4 MG/2 ML VIAL IVP PRN (22:03)
[2022-07-29] MEDS ORDERED: IPRATROPIUM-ALBUTEROL 3 ML NEB INHALATION STA (22:03)
[2022-07-29] MEDS ORDERED: ACETAMINOPHEN TAB 325 MG TAB PO PRN (22:03)
[2022-07-29] MEDS ORDERED: IPRATROPIUM-ALBUTEROL 3 ML NEB INHALATION PRN (22:43)
[2022-07-29] MEDS ORDERED: NON FORMULARY DRUG (Albuterol Inhaler 60 PUFF Puff) INHALATION PRN (22:44)
[2022-07-30] MEDS: ALPRAZolam 1 MG TAB PO PRN ×3 (00:26→21:29)
[2022-07-30] MEDS: TOPIRAMATE 25 MG TAB PO SCH ×3 (00:27→20:20)
[2022-07-30] MEDS: APIXABAN 5 MG TAB PO SCH ×3 (00:27→20:19)
[2022-07-30] MEDS: HYDROcodone/APAP 5-325MG 1 EACH TAB PO PRN ×3 (00:28→21:29)
[2022-07-30] MEDS: LEVOTHYROXINE 88 MCG TAB PO SCH (06:21)
[2022-07-30] MEDS ORDERED: ALBUTEROL NEBULIZED 2.5 MG/3 ML INHALATION PRN (06:45)
[2022-07-30] MEDS ORDERED: IPRATROPIUM 0.5 MG/2.5 ML NEBU INHALATION PRN (06:45)
[2022-07-30] MEDS: METOPROLOL SUCCINATE (ER) 50 MG TAB.ER.24H PO SCH (06:54)
[2022-07-30] MEDS: PANTOPRAZOLE 40 MG TABLET PO SCH (07:46)
[2022-07-30] MEDS: lamoTRIgine 100 MG TAB PO SCH (07:46)
[2022-07-30] MEDS: ARIPiprazole 5 MG TAB PO SCH (07:47)
[2022-07-30] MEDS ORDERED: SYMBICORT 80-4.5 MCG INHALER INHALATION SCH (08:00)
[2022-07-30] MEDS ORDERED: IPRATROPIUM 0.5 MG/2.5 ML NEBU INHALATION SCH (08:00)
[2022-07-30] MEDS ORDERED: LEVOTHYROXINE 75 MCG TAB PO SCH (09:00)
--- NOTE | 2022-07-30 11:25 | P.CRDCN ---
History of Present Illness Consult date: 07/30/22 Chief complaint: Shortness of breath and bilateral lower extent his edema History of present illness: The patient is a very pleasant 56-year-old female patient who is known to our service from before with a past medical history significant for history of pulmonary embolism bilaterally as well as history of chronic obstructive pulmonary disease and COPD and pulmonary hypertension presented to the hospital complaining of shortness of breath. She is known to have chronic hypoxic respiratory failure requiring oxygen 4 L continuously. She does have chronic shortness of breath. For the last few days she noticed that she has been more short of breath than normal. Her oxygen requirement has increased to about 5 L. She stated that she has been struggling was some runny nose recently was no fever and no chills and for that reason, the runny nose, she has been unable to keep her oxygen all the time. Beside the shortness of breath she has been experiencing bilateral lower extremity edema which has also progressed. No dizziness or lightheadedness and no presyncope or syncope. No symptoms of chest pain or chest discomfort. No feeling of heart racing or fluttering. She stated that she has been compliant with oral anticoagulation and she has been compliant with her oral diuretics as well. The patient is known to have severe pulmonary hypertension, WHO group 1 and a group 3 and I did perform on her recently heart catheterization and that showed elevated right-sided filling pressure was evidence of severe pulmonary hypertension. She was diagnosed with chronic thromboembolic pulmonary hypertension and for that reason she was referred to [facility] and she was seen by multidisciplinary pulmonary and surgical service and she is scheduled to undergo pulmonary decortication in September of this year. During this admission she underwent a workup including EKG showing sinus rhythm with nonspecific ST and T wave abnormalities and chest x- ray showed findings consistent with heart failure. NT proBNP came in to be elev ated at 5000. CTA of the chest was performed and showed chronic bilateral pulmonary embolism with no new PE noted. On examination she has a stable vital signs was a slightly elevated blood pressure with regular rhythm and systolic murmur as well as she has diminished breathing sounds bilaterally and mild bilateral lower extremity edema noted Assessment Heart failure exacerbation with evidence of right and left heart failure Severe pulmonary hypertension, WHO group 1 and a group 3 Chronic thromboembolic pulmonary hypertension (CTEPH) Chronic obstructive pulmonary disease Significant history of smoking Bilateral pulmonary embolism Plan Continue the current medical regimen including oral anticoagulation Start the patient on IV Lasix Monitor the kidney function and electrolytes Avoid aggressive blood pressure control Follow-up with the patient Past Medical History Past Medical History: Asthma, COPD, Hypertension, Thyroid Disorder Additional Past Medical History / Comment(s): pulmonary hypertension, emphysema History of Any Multi-Drug Resistant Organisms: MRSA Date of last positivie culture/infection: 12/26/19 MDRO Source:: TISSUE Past Surgical History: Orthopedic Surgery Additional Past Surgical History / Comment(s): tubal pregnancies Past Anesthesia/Blood Transfusion Reactions: No Reported Reaction Past Psychological History: Anxiety, Depression Smoking Status: Current every day smoker Past Alcohol Use History: None Reported Past Drug Use History: None Reported - Past Family History Sister(s) Family Medical History: Deep Vein Thrombosis (DVT) Father History Unknown: Yes Family Medical History: Coronary Artery Disease (CAD), CVA/TIA, Deep Vein Th rombosis (DVT) Mother History Unknown: Yes Family Medical History: Hypertension Medications and Allergies Home Medications Medication Instructions Recorded Confirmed Type ALPRAZolam 1 mg PO TID PRN 11/17/13 07/29/22 History Albuterol Inhaler [Ventolin Hfa 2 puff INHALATION RT-Q6H PRN 04/10/15 07/29/22 History Inhaler] Albuterol Nebulized [Ventolin 2.5 mg INHALATION RT-Q4H PRN 04/10/15 07/29/22 History Nebulized] ARIPiprazole 5 mg PO DAILY 11/29/21 07/29/22 History Fluticasone/Umeclidin/Vilanter 1 puff INHALATION RT-DAILY 11/29/21 07/29/22 History [Trelegy Ellipta 100-62.5-25] Furosemide [Lasix] 20 mg PO AC-BID 11/29/21 07/29/22 History Levothyroxine Sodium [Levo-T] 37.5 mcg PO DAILY 11/29/21 07/29/22 History Levothyroxine Sodium [Synthroid] 50 mcg PO DAILY 11/29/21 07/29/22 History Omeprazole [PriLOSEC] 20 mg PO BID 11/29/21 07/29/22 History lamoTRIgine 200 mg PO DAILY 11/29/21 07/29/22 History modafiniL [Provigil] 200 mg PO DAILY 11/29/21 07/29/22 History rOPINIRole HCL [Requip] 0.5 mg PO HS 11/29/21 07/29/22 History Apixaban [Eliquis] 5 mg PO BID 30 Days #70 tab 12/01/21 07/29/22 Rx Metoprolol Succinate [Toprol XL] 50 mg PO DAILY 07/29/22 07/29/22 History Topiramate [Topamax] 25 mg PO BID 07/29/22 07/29/22 History Allergies Allergy/AdvReac Type Severity Reaction Status Date / Time No Known Allergies Allergy Verified 07/29/22 21:14 Physical Exam Vitals: Vital Signs Temp Pulse Pulse Resp BP BP Pulse Ox 07/30/22 08:51 62 07/30/22 08:32 64 96 07/30/22 06:50 98.3 F 70 18 161/106 94 L 07/30/22 03:54 70 16 150/90 97 07/30/22 01:08 160/101 07/30/22 00:15 98.0 F 60 24 165/112 99 07/29/22 22:58 97.5 F L 07/29/22 22:39 61 07/29/22 22:35 56 L 07/29/22 22:21 53 L 14 124/99 99 07/29/22 18:55 58 L 28 H 108/72 99 Intake and Output 07/29/22 07/30/22 07/30/22 22:59 06:59 14:59 Intake Total 590 240 Balance 590 240 Intake: Oral 590 240 Other: Weight 81.647 kg 81.65 kg Results 07/29/22 19:39 07/29/22 19:39 Cardiac Enzymes 07/29/22 07/29/22 07/29/22 Range/Units 19:39 19:39 23:25 AST 34 (14-36) U/L Troponin I 0.019 0.017 (0.000-0.034) ng/mL 07/30/22 Range/Units 01:40 AST (14-36) U/L Troponin I 0.016 (0.000-0.034) ng/mL Coagulation 07/29/22 Range/Units 19:39 PT 12.8 H (9.0-12.0) sec APTT 23.3 (22.0-30.0) sec CBC 07/29/22 Range/Units 19:39 WBC 7.9 (3.8-10.6) k/uL RBC 4.63 (3.80-5.40) m/uL Hgb 12.4 D (11.4-16.0) gm/dL Hct 40.1 (34.0-46.0) % Plt Count 181 (150-450) k/uL Comprehensive Metabolic Panel 07/29/22 Range/Units 19:39 Sodium 138 (137-145) mmol/L Potassium 3.7 (3.5-5.1) mmol/L Chloride 102 (98-107) mmol/L Carbon Dioxide 28 (22-30) mmol/L BUN 27 H (7-17) mg/dL Creatinine 0.98 (0.52-1.04) mg/dL Glucose 147 H (74-99) mg/dL Calcium 8.7 (8.4-10.2) mg/dL AST 34 (14-36) U/L ALT 26 (4-34) U/L Alkaline Phosphatase 102 (38-126) U/L Total Protein 6.0 L (6.3-8.2) g/dL Albumin 3.4 L (3.5-5.0) g/dL Current Medications Generic Name Dose Route Start Last Admin Trade Name Freq PRN Reason Stop Dose Admin Acetaminophen 650 mg 07/29/22 22:03 Acetaminophen Tab 325 Mg Tab PO Q6HR PRN Mild Pain or Fever > 100.5 Hydrocodone Bitart/Acetaminophen 1 each 07/29/22 22:03 07/30/22 00:28 Hydrocodone/Apap 5-325mg 1 Each Tab PO 1 each Q4HR PRN Administration Moderate Pain (Scale 4 to 6) Albuterol/Ipratropium 3 ml 07/30/22 12:00 Ipratropium-Albuterol 3 Ml Neb INHALATION RT-QID IVÁN Alprazolam 1 mg 07/29/22 22:44 07/30/22 00:26 Alprazolam 1 Mg Tab PO 1 mg TID PRN Administration Anxiety Apixaban 5 mg 07/29/22 22:45 07/30/22 07:46 Apixaban 5 Mg Tab PO 5 mg BID IVÁN Administration Protocol Aripiprazole 5 mg 07/30/22 09:00 07/30/22 07:47 Aripiprazole 5 Mg Tab PO 5 mg DAILY IVÁN Administration Budesonide 1 mg 07/30/22 20:00 Budesonide 1 Mg/2 Ml Nebu INHALATION RT-BID IVÁN Formoterol Fumarate 20 mcg 07/30/22 20:00 Formoterol Fumarate 20 Mcg/2 Ml Nebu INHALATION RT-BID IVÁN Furosemide 40 mg 07/31/22 09:00 Furosemide 10 Mg/Ml 4 Ml Vial IV DAILY IVÁN Ipratropium [place] 0.5 mg 07/30/22 06:45 Ipratropium 0.5 Mg/2.5 Ml Nebu INHALATION RT-Q4H PRN Shortness Of Breath Or Wheezing Lamotrigine 200 mg 07/30/22 09:00 07/30/22 07:46 Lamotrigine 100 Mg Tab PO 200 mg DAILY IVÁN Administration Levothyroxine Sodium 88 mcg 07/30/22 06:30 07/30/22 06:21 Levothyroxine 88 Mcg Tab PO 88 mcg DAILY@0630 IVÁN Administration Methylprednisolone Sodium Succinate 60 mg 07/30/22 12:00 Methylprednisolone Sod Succi 125 Mg/2 Ml Vial IV Q6HR [facility] Metoprolol Succinate 50 mg 07/30/22 09:00 07/30/22 06:54 Metoprolol Succinate (Er) 50 Mg Tab.Er.24h PO 50 mg DAILY IVÁN Administration Modafinil 200 mg 07/30/22 09:00 07/30/22 07:47 Modafinil 200 Mg Tab PO 200 mg DAILY IVÁN Administration Naloxone HCl 0.2 mg 07/29/22 22:03 Naloxone 0.4 Mg/Ml 1 Ml Vial IV Q2M PRN Opioid Reversal Ondansetron HCl 4 mg 07/29/22 22:03 Ondansetron 4 Mg/2 Ml Vial IVP Q8HR PRN Nausea And Vomiting Pantoprazole Sodium 40 mg 07/30/22 07:30 07/30/22 07:46 Pantoprazole 40 Mg Tablet PO 40 mg [id number] IVÁN Administration Ropinirole HCl 0.5 mg 07/29/22 23:00 07/30/22 00:26 Ropinirole Hcl 0.25 Mg Tab PO 0.5 mg HS IVÁN Administration Topiramate 25 mg 07/29/22 23:00 07/30/22 07:47 Topiramate 25 Mg Tab PO 25 mg BID IVÁN Administration Intake and Output 07/29/22 07/30/22 07/30/22 22:59 06:59 14:59 Intake Total 590 240 Balance 590 240 Intake: Oral 590 240 Other: Weight 81.647 kg 81.65 kg 07/29/22 19:39 07/29/22 19:39
--- NOTE | 2022-07-30 11:57 | P.CNPUL ---
History of Present Illness Consult date: 07/30/22 Requesting physician: Chip E Sheet Reason for consult: dyspnea, abnormal CXR/CT Chief complaint: Shortness of breath History of present illness: This is a 56-year-old female patient with a known history of chronic obstructive pulmonary disease, hypothyroidism, gastroesophageal reflux disease, CVA/TIA, chronic and ongoing tobacco dependence, pulmonary embolism in November 2021 that included right ventricular strain and status post EKos thrombolytic therapy. She has remained on anticoagulation in the form of Eliquis. She does have a strong family history of thromboembolic disorder including her father and sister. She had continued having shortness of breath and dyspnea on minimal exertion and had undergone a right heart cardiac catheterization in April 2022 that revealed severe pulmonary hypertension. RVSP was 101 mmHg. Evidence of chronic thromboembolic pulmonary hypertension. She is scheduled to undergo suspected pulmonary decortication at the [facility] 09/06/2022. She presented here to the emergency yesterday with worsening shortness of breath. She is normally on oxygen at 5 L at home. This was not helping. Chest x-ray revealed cardiomegaly. Mild atelectasis at the lung bases. CT angiogram revealed multiple bilateral lower lobe chronic pulmonary emboli without a significant improvement compared to previous of November 2021. No evidence of any new pulmonary embolism. Cardiomegaly. Contrast reflux into the inferior vena cava consistent with some heart failure. White count 7.9. Hemoglobin 12.4. Platelets 181. INR 1.3. D-dimer 1.41. Sodium 138. Potassium 3.7. Bicarb 28. BUN 27. Creatinine 0.98. Troponins negative 3. ProBNP 4930. ProCalcitonin 0.09. Influenza screen negative. RSV screen negative. COVID-19 screen negative. She is seen today in consultation on the regular medical floor. She is currently sitting up in bed. Awake and alert in no acute distress. She is dyspneic with conversation. Dyspneic with minimal exertion. Currently maintaining O2 saturations in the mid 90s on 5 L/m per nasal cannula. Afebrile. Somewhat hypertensive. She is initiated on DuoNeb inhalations, Pulmicort and Perforomist inhalations, IV Solu-Medrol. Remains anticoagulated with Eliquis. Review of Systems REVIEW OF SYSTEMS: CONSTITUTIONAL: Denies any recent significant weight loss or weight gain. EYES: Denies change in vision. EARS, NOSE, MOUTH, THROAT: Denies headaches, denies sore throat. CARDIOVASCULAR: Denies chest pain, palpitations or syncopal episodes. RESPIRATORY: Positive for shortness of breath, no cough, congestion or hemoptysis. GASTROINTESTINAL: Denies change in appetite, denies abdominal pain GENITOURINARY: Denies hematuria, denies infections. MUSKULOSKELETAL: Denies pain, denies swelling. INTEGUMENTARY: Denies rash, denies eczema. NEUROLOGICAL: Denies recent memory loss, no recent seizure activity. PSYCHIATRIC: Denies anxiety, denies depression. HEMATOLOGIC/LYMPHATIC: Denies anemia, denies enlarged lymph nodes. Past Medical History Past Medical History: Asthma, COPD, Hypertension, Thyroid Disorder Additional Past Medical History / Comment(s): pulmonary hypertension, emphysema History of Any Multi-Drug Resistant Organisms: MRSA Date of last positivie culture/infection: 12/26/19 MDRO Source:: TISSUE Past Surgical History: Orthopedic Surgery Additional Past Surgical History / Comment(s): tubal pregnancies Past Anesthesia/Blood Transfusion Reactions: No Reported Reaction Past Psychological History: Anxiety, Depression Smoking Status: Current every day smoker Past Alcohol Use History: None Reported Past Drug Use History: None Reported - Past Family History Sister(s) Family Medical History: Deep Vein Thrombosis (DVT) Father History Unknown: Yes Family Medical History: Coronary Artery Disease (CAD), CVA/TIA, Deep Vein Thrombosis (DVT) Mother History Unknown: Yes Family Medical History: Hypertension Medications and Allergies Home Medications Medication Instructions Recorded Confirmed Type ALPRAZolam 1 mg PO TID PRN 11/17/13 07/29/22 History Albuterol Inhaler [Ventolin Hfa 2 puff INHALATION RT-Q6H PRN 04/10/15 07/29/22 History Inhaler] Albuterol Nebulized [Ventolin 2.5 mg INHALATION RT-Q4H PRN 04/10/15 07/29/22 History Nebulized] ARIPiprazole 5 mg PO DAILY 11/29/21 07/29/22 History Fluticasone/Umeclidin/Vilanter 1 puff INHALATION RT-DAILY 11/29/21 07/29/22 History [Trelegy Ellipta 100-62.5-25] Furosemide [Lasix] 20 mg PO AC-BID 11/29/21 07/29/22 History Levothyroxine Sodium [Levo-T] 37.5 mcg PO DAILY 11/29/21 07/29/22 History Levothyroxine Sodium [Synthroid] 50 mcg PO DAILY 11/29/21 07/29/22 History Omeprazole [PriLOSEC] 20 mg PO BID 11/29/21 07/29/22 History lamoTRIgine 200 mg PO DAILY 11/29/21 07/29/22 History modafiniL [Provigil] 200 mg PO DAILY 11/29/21 07/29/22 History rOPINIRole HCL [Requip] 0.5 mg PO HS 11/29/21 07/29/22 History Apixaban [Eliquis] 5 mg PO BID 30 Days #70 tab 12/01/21 07/29/22 Rx Metoprolol Succinate [Toprol XL] 50 mg PO DAILY 07/29/22 07/29/22 History Topiramate [Topamax] 25 mg PO BID 07/29/22 07/29/22 History Allergies Allergy/AdvReac Type Severity Reaction Status Date / Time No Known Allergies Allergy Verified 07/29/22 21:14 Physical Exam Vitals: Vital Signs Temp Pulse Pulse Resp BP BP Pulse Ox 07/30/22 08:51 62 07/30/22 08:32 64 96 07/30/22 06:50 98.3 F 70 18 161/106 94 L 07/30/22 03:54 70 16 150/90 97 07/30/22 01:08 160/101 07/30/22 00:15 98.0 F 60 24 165/112 99 07/29/22 22:58 97.5 F L 07/29/22 22:39 61 07/29/22 22:35 56 L 07/29/22 22:21 53 L 14 124/99 99 07/29/22 18:55 58 L 28 H 108/72 99 Intake and Output 07/29/22 07/30/22 07/30/22 22:59 06:59 14:59 Intake Total 590 240 Balance 590 240 Intake: Oral 590 240 Other: Weight 81.647 kg 81.65 kg GENERAL EXAM: Alert, pleasant 56-year-old female, on 5 L nasal cannula, fairly comfortable in no apparent distress. HEAD: Normocephalic. EYES: Normal reaction of pupils, equal size. NOSE: Clear with pink turbinates. THROAT: No erythema or exudates. NECK: No masses, no JVD. CHEST: No chest wall deformity. LUNGS: Equal air entry with end expiratory wheeze, diminished CVS: S1 and S2 normal with no audible murmur, regular rhythm. ABDOMEN: No hepatosplenomegaly, normal bowel sounds, no guarding or rigidity. SPINE: No scoliosis or deformity SKIN: No rashes CENTRAL NERVOUS SYSTEM: No focal deficits, tone is normal in all 4 extremities. EXTREMITIES: There is no peripheral edema. No clubbing, no cyanosis. Peripheral pulses are intact. Results - Laboratory Findings CBC and BMP: 07/29/22 19:39 07/29/22 19:39 PT/INR, D-dimer PT 12.8 sec (9.0-12.0) H 07/29/22 19:39 INR 1.3 (<1.2) H 07/29/22 19:39 D-Dimer 1.41 mg/L FEU (<0.60) H 07/29/22 19:39 Abnormal lab findings: Abnormal Labs 07/29/22 07/29/22 07/29/22 19:39 19:39 19:39 RDW 16.3 H PT 12.8 H INR 1.3 H D-Dimer 1.41 H BUN 27 H Glucose 147 H Total Protein 6.0 L Albumin 3.4 L - Diagnostic Findings Chest x-ray: image reviewed CT scan - chest: image reviewed Assessment and Plan Assessment: Acute on chronic hypoxemic respiratory failure secondary to chronic thr omboembolic pulmonary hypertension, acute exacerbation of chronic obstructive pulmonary disease, acute exacerbation of diastolic congestive heart failure Chronic thromboembolic pulmonary hypertension with RVSP of 101 mmHg with plans for possible pulmonary decortication at the [facility] 09/06/2022 Chronic obstructive pulmonary disease and oxygen dependent Chronic and ongoing tobacco dependence Hypothyroidism Hypertension History of anxiety/depression Plan: The patient was seen and evaluated Chest x-ray, CT angiogram, medications and labs reviewed Continue to titrate the FiO2 as tolerated Initiated on DuoNeb inhalations, Pulmicort and Perforomist inhalations Initiated on IV Solu-Medrol Medrol Continued on Eliquis Initiated on IV diuretics We will continue to follow and make further recommendations based on her clinical status I have personally seen and examined the patient, performed the documentation and the assessment and plan as written. Number of minutes spent on the visit: 20.
[2022-07-30] MEDS ORDERED: methylPREDNISolone SOD SUCCI 125 MG/2 ML VIAL IV SCH (12:00)
[2022-07-30] MEDS: IPRATROPIUM-ALBUTEROL 3 ML NEB INHALATION SCH ×3 (12:00→18:39)
--- NOTE | 2022-07-30 13:10 | P.HPIM ---
History of Present Illness 56-year-old with the known history of advanced COPD uses 5 L of oxygen, history of pulmonary embolism and severe secondary pulmonary hypertension secondary to PE and COPD, right-sided heart failure came in with bilateral pedal edema patient is found to have pulmonary edema does have elevated BNP. Patient does have fairly good air entry into bilateral lung powell patient is presently on 4 L of oxygen was requiring more oxygen on admission. Patient doesn't have any fever chills no evidence of pneumonia at this time patient anti-correlation at the request. Patient the had a PE in November 2021 patient underwent EKOS procedure. REVIEW OF SYSTEMS: CONSTITUTIONAL: No fever, no malaise, no fatigue. HEENT: No recent visual problems or hearing problems. Denied any sore throat. CARDIOVASCULAR: No chest pain, orthopnea, PND, no palpitations, no syncope. PULMONARY: As mentioned in HPI GASTROINTESTINAL: No diarrhea, no nausea, no vomiting, no abdominal pain. NEUROLOGICAL: No headaches, no weakness, no numbness. HEMATOLOGICAL: Denies any bleeding or petechiae. GENITOURINARY: Denies any burning micturition, frequency, or urgency. MUSCULOSKELETAL/RHEUMATOLOGICAL: Denies any joint pain, swelling, or any muscle pain. ENDOCRINE: Denies any polyuria or polydipsia. The rest of the 14-point review of systems is negative. PHYSICAL EXAMINATION: GENERAL: The patient is alert and oriented x3, not in any acute distress. Well developed, well nourished. HEENT: Pupils are round and equally reacting to light. EOMI. No scleral icterus. No conjunctival pallor. Normocephalic, atraumatic. No pharyngeal erythema. No thyromegaly. CARDIOVASCULAR: S1 and S2 present. No murmurs, rubs, or gallops. PULMONARY: Chest is clear to auscultation, no wheezing or crackles. ABDOMEN: Soft, nontender, nondistended, normoactive bowel sounds. No palpable organomegaly. MUSCULOSKELETAL: No joint swelling or deformity. EXTREMITIES: No cyanosis, clubbing, or pedal edema. NEUROLOGICAL: Gross neurological examination did not reveal any focal deficits. SKIN: No rashes. Assessment and plan -Acute on chronic hypoxic, hypercapnic respiratory failure secondary to cut his heart failure chronic diastolic dysfunction, right-sided heart failure, chronic COPD emphysema. Patient when you done IV Lasix will cut down the dose of IV steroids at this time. Patient is not much of COPD exacerbation but isn't in CHF exacerbation. -Severe pulmonary hypertension secondary to pulmonary embolism -COPD with mild no acute exacerbation -Continue smoking history: Quit some cessation counseling was provided -History of pulmonary embolism for which patient another course which will be continued -Hypothyroidism -Depression DVT prophylaxis: On anticoagulation as mentioned above Past Medical History Past Medical History: Asthma, COPD, Hypertension, Thyroid Disorder Additional Past Medical History / Comment(s): pulmonary hypertension, emphysema History of Any Multi-Drug Resistant Organisms: MRSA Date of last positivie culture/infection: 12/26/19 MDRO Source:: TISSUE Past Surgical History: Orthopedic Surgery Additional Past Surgical History / Comment(s): tubal pregnancies Past Anesthesia/Blood Transfusion Reactions: No Reported Reaction Past Psychological History: Anxiety, Depression Smoking Status: Current every day smoker Past Alcohol Use History: None Reported Past Drug Use History: None Reported - Past Family History Sister(s) Family Medical History: Deep Vein Thrombosis (DVT) Father History Unknown: Yes Family Medical History: Coronary Artery Disease (CAD), CVA/TIA, Deep Vein Thrombosis (DVT) Mother History Unknown: Yes Family Medical History: Hypertension Medications and Allergies Home Medications Medication Instructions Recorded Confirmed Type ALPRAZolam 1 mg PO TID PRN 11/17/13 07/29/22 History Albuterol Inhaler [Ventolin Hfa 2 puff INHALATION RT-Q6H PRN 04/10/15 07/29/22 History Inhaler] Albuterol Nebulized [Ventolin 2.5 mg INHALATION RT-Q4H PRN 04/10/15 07/29/22 History Nebulized] ARIPiprazole 5 mg PO DAILY 11/29/21 07/29/22 History Fluticasone/Umeclidin/Vilanter 1 puff INHALATION RT-DAILY 11/29/21 07/29/22 History [Trelegy Ellipta 100-62.5-25] Furosemide [Lasix] 20 mg PO AC-BID 11/29/21 07/29/22 History Levothyroxine Sodium [Levo-T] 37.5 mcg PO DAILY 11/29/21 07/29/22 History Levothyroxine Sodium [Synthroid] 50 mcg PO DAILY 11/29/21 07/29/22 History Omeprazole [PriLOSEC] 20 mg PO BID 11/29/21 07/29/22 History lamoTRIgine 200 mg PO DAILY 11/29/21 07/29/22 History modafiniL [Provigil] 200 mg PO DAILY 11/29/21 07/29/22 History rOPINIRole HCL [Requip] 0.5 mg PO HS 11/29/21 07/29/22 History Apixaban [Eliquis] 5 mg PO BID 30 Days #70 tab 12/01/21 07/29/22 Rx Metoprolol Succinate [Toprol XL] 50 mg PO DAILY 07/29/22 07/29/22 History Topiramate [Topamax] 25 mg PO BID 07/29/22 07/29/22 History Allergies Allergy/AdvReac Type Severity Reaction Status Date / Time No Known Allergies Allergy Verified 07/29/22 21:14 Physical Exam Vitals: Vital Signs Temp Pulse Pulse Resp BP BP Pulse Ox 07/30/22 12:16 97.4 F L 73 22 160/100 100 07/30/22 12:13 62 07/30/22 12:01 64 07/30/22 08:51 62 07/30/22 08:32 64 96 07/30/22 06:50 98.3 F 70 18 161/106 94 L 07/30/22 03:54 70 16 150/90 97 07/30/22 01:08 160/101 07/30/22 00:15 98.0 F 60 24 165/112 99 07/29/22 22:58 97.5 F L 07/29/22 22:39 61 07/29/22 22:35 56 L 07/29/22 22:21 53 L 14 124/99 99 07/29/22 18:55 58 L 28 H 108/72 99 Intake and Output 07/29/22 07/30/22 07/30/22 22:59 06:59 14:59 Intake Total 590 240 Balance 590 240 Intake: Oral 590 240 Other: Weight 81.647 kg 81.65 kg Results CBC & Chem 7: 07/29/22 19:39 07/29/22 19:39 Labs: Abnormal Lab Results - Last 24 Hours (Table) 07/29/22 07/29/22 07/29/22 Range/Units 19:39 19:39 19:39 RDW 16.3 H (11.5-15.5) % PT 12.8 H (9.0-12.0) sec INR 1.3 H (<1.2) D-Dimer 1.41 H (<0.60) mg/L FEU BUN 27 H (7-17) mg/dL Glucose 147 H (74-99) mg/dL Total Protein 6.0 L (6.3-8.2) g/dL Albumin 3.4 L (3.5-5.0) g/dL Thrombosis Risk Factor Assmnt - Choose All That Apply Any of the Below Risk Factors Present?: Yes Other Risk Factors: Yes Each Risk Factor Represents 3 Points: Family history of DVT/PE, History of DVT/PE Thrombosis Risk Factor Assessment Total Risk Factor Score: 6 Thrombosis Risk Factor Assessment Level: High Risk
[2022-07-30] MEDS: methylPREDNISolone SOD SUCCI 40 MG/ML 1 ML VIAL IV SCH ×2 (16:25→23:03)
[2022-07-30] MEDS: FORMOTEROL FUMARATE 20 MCG/2 ML NEBU INHALATION SCH (18:39)
[2022-07-30] MEDS: BUDESONIDE 1 MG/2 ML NEBU INHALATION SCH (18:39)
[2022-07-30] MEDS: NIFEdipine XL 30 MG TAB.ER.24 PO SCH (21:29)
[2022-07-31] MEDS: LEVOTHYROXINE 88 MCG TAB PO SCH (05:58)
[2022-07-31] MEDS: NIFEdipine XL 30 MG TAB.ER.24 PO SCH (08:00)
[2022-07-31] MEDS: APIXABAN 5 MG TAB PO SCH (08:00)
[2022-07-31] MEDS: ARIPiprazole 5 MG TAB PO SCH (08:00)
[2022-07-31] MEDS: lamoTRIgine 100 MG TAB PO SCH (08:00)
[2022-07-31] MEDS: METOPROLOL SUCCINATE (ER) 50 MG TAB.ER.24H PO SCH (08:00)
[2022-07-31] MEDS: PANTOPRAZOLE 40 MG TABLET PO SCH (08:00)
[2022-07-31] MEDS: TOPIRAMATE 25 MG TAB PO SCH (08:01)
[2022-07-31] MEDS: methylPREDNISolone SOD SUCCI 40 MG/ML 1 ML VIAL IV SCH (08:01)
[2022-07-31] MEDS: BUDESONIDE 1 MG/2 ML NEBU INHALATION SCH (08:35)
[2022-07-31] MEDS: IPRATROPIUM-ALBUTEROL 3 ML NEB INHALATION SCH ×3 (08:35→16:19)
[2022-07-31] MEDS: FORMOTEROL FUMARATE 20 MCG/2 ML NEBU INHALATION SCH (08:35)
[2022-07-31] MEDS ORDERED: FUROSEMIDE 10 MG/ML 4 ML VIAL IV SCH (09:00)
[2022-07-31 09:25] LABS: HCT 43.9 % (37.2-46.3); HGB 13.6 g/dL (12.0-15.0); MCH 26.6 pg (27.0-32.0); MCV 85.7 fL (80.0-97.0); Mean Platelet Volume 10.3 fL (9.5-12.2); NRBC Per 100 WBC 0 /100 WBCS (0.0-0.0); Platelet Count 197 X 10*3/uL (140-440); RBC 5.12 X 10*6/uL (4.10-5.20); RDW 16.5 % (11.5-14.5); WBC 15.23 X 10*3/uL (4.50-10.00)
--- NOTE | 2022-07-31 09:48 | P.PN ---
Subjective The patient is a very pleasant 56-year-old female patient who is known to our service from before with a past medical history significant for history of pulmonary embolism bilaterally as well as history of chronic obstructive pulmonary disease and COPD and pulmonary hypertension presented to the hospital complaining of shortness of breath. She is known to have chronic hypoxic respiratory failure requiring oxygen 4 L continuously. She does have chronic shortness of breath. For the last few days she noticed that she has been more short of breath than normal. Her oxygen requirement has increased to about 5 L. She stated that she has been struggling was some runny nose recently was no fever and no chills and for that reason, the runny nose, she has been unable to keep her oxygen all the time. Beside the shortness of breath she has been experiencing bilateral lower extremity edema which has also progressed. No dizziness or lightheadedness and no presyncope or syncope. No symptoms of chest pain or chest discomfort. No feeling of heart racing or fluttering. She stated that she has been compliant with oral anticoagulation and she has been compliant with her oral diuretics as well. The patient is known to have severe pulmonary hypertension, WHO group 1 and a group 3 and I did perform on her recently heart catheterization and that showed elevated right-sided filling pressure was evidence of severe pulmonary hypertension. She was diagnosed with chronic thromboembolic pulmonary hypertension and for that reason she was referred to [facility] and she was seen by multidisciplinary pulmonary and surgical service and she is scheduled to undergo pulmonary decortication in September of this year. During this admission she underwent a workup including EKG showing sinus rhythm with nonspecific ST and T wave abnormalities and chest x- ray showed findings consistent with heart failure. NT proBNP came in to be elevated at 5000. CTA of the chest was performed and showed chronic bilateral pulmonary embolism with no new PE noted. On examination she has a stable vital signs was a slightly elevated blood pressure with regular rhythm and systolic murmur as well as she has diminished breathing sounds bilaterally and mild bilateral lower extremity edema noted 07/31 Patient seen and examined. Patient states she feels much better. Denies any further lightheadedness that she was having previously. On presentation blood pressures borderline systolics in the 100s however now have increased up to the 160s to 180s. She was started on nifedipine. Normally only on metoprolol and Lasix at home. Addition was given IV Lasix with good urine output. She admits to improvement in her lower extremity edema and states she feels better than she has at home. PHYSICAL EXAMINATION Vital signs reviewed. CONSTITUTIONAL: No apparent distress, chronically ill appearing. HEENT: Head is normocephalic. Pupils are equal, round. Sclerae anicteric. Mucous membranes of the mouth are moist. No JVD. No carotid bruit. CHEST EXAMINATION: Decreased breath sounds bilaterally HEART EXAMINATION: Regular rate and rhythm. S1, S2 heard. No murmurs, gallops or rub. ABDOMEN: Soft, nontender. Positive bowel sounds. EXTREMITIES: 2+ peripheral pulses, 1+ lower extremity edema and no calf tenderness. NEUROLOGIC EXAMINATION: Patient is awake, alert and oriented x3. Assessment Borderline hypotension on admission, possibly related to more right sided heart failure Heart failure exacerbation with evidence of right and left heart failure Severe pulmonary hypertension, WHO group 1 and a group 3 Chronic thromboembolic pulmonary hypertension (CTEPH) Chronic obstructive pulmonary disease Significant history of smoking Bilateral pulmonary embolism Plan Continue with nifedipine however allow mild permissive hypertension with patient's blood pressure somewhat labile and prior episodes of lightheadedness. Borderline blood pressures and lightheadedness may be related to more right- sided heart failure on presentation. Nifedipine good choice as occasionally has some improvement with pulmonary hypertension. We will attempt to diurese and patient can follow up with [facility] for further pulmonary hypertension medication adjustments. If patient feeling better possible discharge home later today or tomorrow. Objective - Vital Signs Vital signs: Vital Signs Temp 97.8 F 07/31/22 07:55 Pulse 80 07/31/22 09:04 Resp 18 07/31/22 07:55 BP 174/104 07/31/22 07:55 Pulse Ox 98 07/31/22 08:35 FiO2 Intake & Output 07/30/22 07/31/22 07/31/22 18:59 06:59 18:59 Intake Total 240 600 Balance 240 600 Weight 106.503 kg Intake: Oral 240 600 Other: Voiding Method Bedside Commode Bedside Commode # Voids 2 1 - Labs CBC & Chem 7: 07/31/22 05:26 07/29/22 19:39 Labs: Abnormal Lab Results - Last 24 Hours (Table) 07/31/22 Range/Units 05:26 WBC 15.23 H (4.50-10.00) X 10*3/uL MCH 26.6 L (27.0-32.0) pg MCHC 31.0 L (32.0-37.0) g/dL RDW 16.5 H (11.5-14.5) %
[2022-07-31 09:58] LABS: African American GFR (CKD) 53.1 (60.0-200.0); Anion Gap 16.9 mmol/L (10.00-18.00); BUN/Creat Ratio 20.46 Ratio (12.00-20.00); Blood Urea Nitrogen 26.6 mg/dL (9.0-27.0); Calcium 9.6 mg/dL (8.7-10.3); Carbon Dioxide 20.1 mmol/L (20.0-27.5); Non-African American GFR(CKD) 45.8 (60.0-200.0); Potassium 4.7 mmol/L (3.5-5.5)
[2022-07-31 11:38] VITALS: BP 156/89; RESP 22; TEMP 97.2
--- NOTE | 2022-07-31 14:28 | P.PN ---
Subjective Progress Note Date: 07/31/22 This is a 56-year-old female patient with a known history of chronic obstructive pulmonary disease, hypothyroidism, gastroesophageal reflux disease, CVA/TIA, chronic and ongoing tobacco dependence, pulmonary embolism in November 2021 that included right ventricular strain and status post EKos thrombolytic therapy. She has remained on anticoagulation in the form of Eliquis. She does have a strong family history of thromboembolic disorder including her father and sister. She had continued having shortness of breath and dyspnea on minimal exertion and had undergone a right heart cardiac catheterization in April 2022 that revealed severe pulmonary hypertension. RVSP was 101 mmHg. Evidence of chronic thromboembolic pulmonary hypertension. She is scheduled to undergo suspected pulmonary decortication at the [facility] 09/06/2022. She presented here to the emergency yesterday with worsening shortness of breath. She is normally on oxygen at 5 L at home. This was not helping. Chest x-ray revealed cardiomegaly. Mild atelectasis at the lung bases. CT angiogram revealed multiple bilateral lower lobe chronic pulmonary emboli without a significant improvement compared to previous of November 2021. No evidence of any new pulmonary embolism. Cardiomegaly. Contrast reflux into the inferior vena cava consistent with some heart failure. White count 7.9. Hemoglobin 12.4. Platelets 181. INR 1.3. D-dimer 1.41. Sodium 138. Potassium 3.7. Bicarb 28. BUN 27. Creatinine 0.98. Troponins negative 3. ProBNP 4930. ProCalcitonin 0.09. Influenza screen negative. RSV screen negative. COVID-19 screen negative. She is seen today in consultation on the regular medical floor. She is currently sitting up in bed. Awake and alert in no acute distress. She is dyspneic with conversation. Dyspneic with minimal exertion. Currently maintaining O2 saturations in the mid 90s on 5 L/m per nasal cannula. Afebrile. Somewhat hypertensive. She is initiated on DuoNeb inhalations, Pulmicort and Perforomist inhalations, IV Solu-Medrol. Remains anticoagulated with Eliquis. On today's evaluation of 07/31/2022, the patient is doing well. The patient is less short of breath compared to yesterday. Noted the patient has chronic thromboembolic venoocclusive disease with secondary pulmonary hypertension. The patient is being considered for surgical thrombectomy at the [facility]. The patient is currently on 3 L of oxygen by nasal cannula. The patient remains on long-term and evaluation with Eliquis 5 mg by mouth twice a day. She is a chronic smoker. He is on DuoNeb about treatments [id number]. His COPD is being optimized and the patient is being diuresed gently with 40 mg of Lasix IV every 24 hours. No other new complaints otherwise for now. She is resting comfortably in bed. She has had previous pulmonary embolism. Her VQ scan was abnormal. CAT scan of the chest showing chronic lower lobe pulmonary artery branch clots. I'll discuss of 15.2 with hemoglobin 13.6. Platelet count is at 197. Serum bicarb is at 20 BUN is at 26 with a creatinine of 1.3. Troponins are negative. Objective - Vital Signs Vital signs: Vital Signs Temp 97.2 F L 07/31/22 11:37 Pulse 75 07/31/22 11:37 Resp 22 07/31/22 11:37 BP 156/89 07/31/22 11:37 Pulse Ox 97 07/31/22 11:37 FiO2 Intake & Output 07/30/22 07/31/22 07/31/22 18:59 06:59 18:59 Intake Total 240 600 Balance 240 600 Weight 106.503 kg Intake: Oral 240 600 Other: Voiding Method Bedside Commode Bedside Commode # Voids 2 1 - Exam GENERAL EXAM: Alert, pleasant 56-year-old female, on 3 L nasal cannula, fairly comfortable in no apparent distress. HEAD: Normocephalic. EYES: Normal reaction of pupils, equal size. NOSE: Clear with pink turbinates. THROAT: No erythema or exudates. NECK: No masses, no JVD. CHEST: No chest wall deformity. LUNGS: Equal air entry with end expiratory wheeze, diminished CVS: S1 and S2 normal with no audible murmur, regular rhythm. ABDOMEN: No hepatosplenomegaly, normal bowel sounds, no guarding or rigidity. SPINE: No scoliosis or deformity SKIN: No rashes CENTRAL NERVOUS SYSTEM: No focal deficits, tone is normal in all 4 extremities. EXTREMITIES: There is no peripheral edema. No clubbing, no cyanosis. Peripheral pulses are intact. - Labs CBC & Chem 7: 07/31/22 05:26 07/31/22 05:26 Labs: Abnormal Lab Results - Last 24 Hours (Table) 07/31/22 07/31/22 Range/Units 05:26 05:26 WBC 15.23 H (4.50-10.00) X 10*3/uL MCH 26.6 L (27.0-32.0) pg MCHC 31.0 L (32.0-37.0) g/dL RDW 16.5 H (11.5-14.5) % Sodium 134 L (135-145) mmol/L Est GFR (CKD-EPI)AfAm 53.1 L (60.0-200.0) Est GFR (CKD-EPI)NonAf 45.8 L (60.0-200.0) BUN/Creatinine Ratio 20.46 H (12.00-20.00) Ratio Glucose 267 H (70-110) mg/dL Assessment and Plan Plan: Acute on chronic hypoxemic respiratory failure secondary to chronic thromboembolic pulmonary hypertension, acute exacerbation of chronic obstructive pulmonary disease, acute exacerbation of diastolic congestive heart failure. The patient is currently on 3 L O2 nasal cannula. The patient is being diuresed and. The patient is also on Eliquis 5 mg by mouth twice a day. Chronic thromboembolic pulmonary hypertension with RVSP of 101 mmHg with plans for possible pulmonary decortication at the [facility] 09/06/2022, the patient is going to undergo a surgical thrombectomy at the [facility] on 2022 Chronic obstructive pulmonary disease and oxygen dependent Chronic and ongoing tobacco dependence Hypothyroidism Hypertension History of anxiety/depression Plan: Continue same treatment Continue to titrate the FiO2 as tolerated, currently on 3 L of oxygen nasal cannula Initiated on DuoNeb inhalations, Pulmicort and Perforomist inhalations Continued on Eliquis Continue IV Lasix Oxygen patient is stable We will continue to follow Surgical thrombectomy on 09/06/2022 at [facility]
[2022-07-31 16:35] VITALS: PULSE 88
== END 2022-07-31 17:27 | disposition home or self-care (01) | DRG 291 ==
LOC: EC 18:53 → 5NMEDONC 22:06
PROVIDERS: ADMIT Hospitalist; ATTEND Hospitalist
DX: I11.0 Hypertensive heart disease with heart failure (principal); I50.33 Acute on chronic diastolic (congestive) heart failure; J96.21 Acute and chronic respiratory failure with hypoxia; J96.22 Acute and chronic respiratory failure with hypercapnia; J98.11 Atelectasis; I27.82 Chronic pulmonary embolism; J43.9 Emphysema, unspecified; I50.82 Biventricular heart failure; I95.9 Hypotension, unspecified; I27.29 Other secondary pulmonary hypertension; I45.10 Unspecified right bundle-branch block; I27.24 Chronic thromboembolic pulmonary hypertension; I27.21 Secondary pulmonary arterial hypertension; I27.23 Pulmonary hypertension due to lung diseases and hypoxia; E03.9 Hypothyroidism, unspecified; K21.9 Gastro-esophageal reflux disease without esophagitis; F32.A Depression, unspecified; Z20.822 Contact with and (suspected) exposure to COVID-19; F17.200 Nicotine dependence, unspecified, uncomplicated; F41.9 Anxiety disorder, unspecified; Z99.81 Dependence on supplemental oxygen; Z86.14 Personal history of Methicillin resistant Staphylococcus aureus infection; Z86.73 Personal history of transient ischemic attack (TIA), and cerebral infarction without residual deficits; Z79.899 Other long term (current) drug therapy; Z79.890 Hormone replacement therapy; Z79.01 Long term (current) use of anticoagulants; Z71.6 Tobacco abuse counseling
CPT/HCPCS: 36415; 71046; 71275; 80048; 80053; 83605; 83880; 84145; 84484; 85025; 85027; 85379; 85610; 85730; 87636; 93005; 94640; 94760; 96374; 96375; 99285

== ENCOUNTER → 2022-08-19 | Outpatient (CLI) | payer MEDICARE, OTHER ==
[2022-08-20 08:03] LABS: African American GFR (CKD) 44.3 (60.0-200.0); Anion Gap 13.6 mmol/L (10.00-18.00); BUN/Creat Ratio 13.11 Ratio (12.00-20.00); Blood Urea Nitrogen 19.8 mg/dL (9.0-27.0); Calcium 9.3 mg/dL (8.7-10.3); Carbon Dioxide 24.8 mmol/L (20.0-27.5); Non-African American GFR(CKD) 38.2 (60.0-200.0); Potassium 3.6 mmol/L (3.5-5.5)
== END | disposition home or self-care (01) ==
LOC: LABWHC1 10:29
PROVIDERS: ATTEND Nurse Practitioner Acute Care
DX: I27.20 Pulmonary hypertension, unspecified (principal); I50.812 Chronic right heart failure
CPT/HCPCS: 36415; 80048; 83880; 86038

== ENCOUNTER 2022-08-28 11:10 | Emergency (ER) | payer MEDICARE, OTHER ==
--- NOTE | 2022-08-28 12:51 | ED ---
Lower Extremity Injury HPI - General Chief Complaint: Extremity Injury, Lower Stated Complaint: Leg Injury Time Seen by Provider: 08/28/22 12:41 Source: patient, RN notes reviewed Mode of arrival: wheelchair Limitations: no limitations - History of Present Illness Initial Comments: 57-year-old female presents emergency from chief complaint left leg pain and swelling. Patient states she felt A Day. Patient States She Has Increasing Swelling Is Concerned about Possible Clot She's Had in the past. Patient Also Was a Left Knee Pain. Patient Denies Any Other Muscular Skeletal Injuries She Is Able to Walk but States It's Sore. She States That She's Had Increased Swelling from Her Knee down. - Related Data Home Medications Medication Instructions Recorded Confirmed ALPRAZolam 1 mg PO TID PRN 11/17/13 07/29/22 Albuterol Inhaler [Ventolin Hfa 2 puff INHALATION RT-Q6H PRN 04/10/15 07/29/22 Inhaler] Albuterol Nebulized [Ventolin 2.5 mg INHALATION RT-Q4H PRN 04/10/15 07/29/22 Nebulized] ARIPiprazole 5 mg PO DAILY 11/29/21 07/29/22 Fluticasone/Umeclidin/Vilanter 1 puff INHALATION RT-DAILY 11/29/21 07/29/22 [Trelegy Ellipta 100-62.5-25] Furosemide [Lasix] 20 mg PO AC-BID 11/29/21 07/29/22 Levothyroxine Sodium [Levo-T] 37.5 mcg PO DAILY 11/29/21 07/29/22 Levothyroxine Sodium [Synthroid] 50 mcg PO DAILY 11/29/21 07/29/22 Omeprazole [PriLOSEC] 20 mg PO BID 11/29/21 07/29/22 lamoTRIgine 200 mg PO DAILY 11/29/21 07/29/22 modafiniL [Provigil] 200 mg PO DAILY 11/29/21 07/29/22 rOPINIRole HCL [Requip] 0.5 mg PO HS 11/29/21 07/29/22 Metoprolol Succinate [Toprol XL] 50 mg PO DAILY 07/29/22 07/29/22 Topiramate [Topamax] 25 mg PO BID 03/25/23 03/25/23 Previous Rx's Medication Instructions Recorded Apixaban [Eliquis] 5 mg PO BID 30 Days #70 tab 12/01/21 Ipratropium-Albuterol Nebulize 3 ml INHALATION RT-QID #60 each 07/31/22 [Duoneb 0.5 mg-3 mg/3 ml Soln] NIFEdipine XL [Procardia XL] 30 mg PO DAILY #30 tab 07/31/22 predniSONE 10 mg PO DIRECTED #30 tab 07/31/22 Allergies Allergy/AdvReac Type Severity Reaction Status Date / Time No Known Allergies Allergy Verified 08/28/22 12:11 Review of Systems ROS Statement: Those systems with pertinent positive or pertinent negative responses have been documented in the HPI. ROS Other: All systems not noted in ROS Statement are negative. Past Medical History Past Medical History: Asthma, COPD, Hypertension, Thyroid Disorder Additional Past Medical History / Comment(s): pulmonary hypertension, emphysema History of Any Multi-Drug Resistant Organisms: MRSA Date of last positivie culture/infection: 12/26/19 MDRO Source:: TISSUE Past Surgical History: Orthopedic Surgery Additional Past Surgical History / Comment(s): tubal pregnancies, lt shoulder Past Anesthesia/Blood Transfusion Reactions: No Reported Reaction Past Psychological History: Anxiety, Depression Smoking Status: Current every day smoker Past Alcohol Use History: None Reported Past Drug Use History: None Reported - Past Family History Sister(s) Family Medical History: Deep Vein Thrombosis (DVT) Father History Unknown: Yes Family Medical History: Coronary Artery Disease (CAD), CVA/TIA, Deep Vein Thrombosis (DVT) Mother History Unknown: Yes Family Medical History: Hypertension General Exam Limitations: no limitations General appearance: alert, in no apparent distress Head exam: Present: atraumatic, normocephalic, normal inspection Eye exam: Present: normal appearance, PERRL, EOMI. Absent: scleral icterus, conjunctival injection, periorbital swelling Respiratory exam: Present: normal lung sounds bilaterally. Absent: respiratory distress, wheezes, rales, rhonchi, stridor Cardiovascular Exam: Present: regular rate, normal rhythm, normal heart sounds. Absent: systolic murmur, diastolic murmur, rubs, gallop, clicks Extremities exam: Present: other (Left leg there is mild swelling, neurovascular intact equal pedal pulses, there is tenderness over the left knee with full range of motion) Skin exam: Present: warm, dry, intact, normal color. Absent: rash Course Vital Signs 08/28/22 12:06 Temperature 97.8 F Pulse Rate 63 Respiratory 20 Rate Blood Pressure 160/113 O2 Sat by Pulse 94 L Oximetry Medical Decision Making - Medical Decision Making Was pt. sent in by a medical professional or institution (JUSTO Villanueva, [employer], urgent care, hospital, or detention...) When possible be specific @ -No Did you speak to anyone other than the patient for history (EMS, parent, family, police, friend...)? What history was obtained from this source @ -No Did you review nursing and triage notes (agree or disagree)? Why? @ -I reviewed and agree with nursing and triage notes Were old charts reviewed (outside hosp., previous admission, EMS record, old EKG, old radiological studies, urgent care reports/EKG's, detention records)? Report findings @ -Cardiology consult, CT of the chest Differential Diagnosis (chest pain, altered mental status, abdominal pain women, abdominal pain men, vaginal bleeding, weakness, fever, dyspnea, syncope, headache, dizziness, GI bleed, back pain, seizure, CVA, palpatations, mental health, musculoskeletal)? @ -Leg fracture, DVT, leg swelling EKG interpreted by me (3pts min.). @ -None X-rays interpreted by me (1pt min.). @ -X-ray shows no acute fracture CT interpreted by me (1pt min.). @ -None done U/S interpreted by me (1pt. min.). @ -Ultrasound shows chronic DVT What testing was considered but not performed or refused? (CT, X-rays, U/S, labs)? Why? @ -None What meds were considered but not given or refused? Why? @ -None Did you discuss the management of the patient with other professionals (professionals i.e. JUSTO Villanueva, [employer]IE[employer], lab, RT, psych nurse, social media project manager, bed spring maker, teacher, aoc airspace control officer, welfare case worker)? Give summary @ -No Was smoking cessation discussed for >3mins.? @ -No Was critical care preformed (if so, how long)? @ -No Were there social determinants of health that impacted care today? How? (Homelessness, low income, unemployed, alcoholism, drug addiction, transportation, low edu. Level, literacy, decrease access to med. care, alf, rehab)? @ -No Was there de-escalation of care discussed even if they declined (Discuss DNR or withdrawal of care, Hospice)? DNR status @ -No What co-morbidities impacted this encounter? (DM, HTN, Smoking, COPD, CAD, Cancer, CVA, ARF, Chemo, Hep., AIDS, mental health diagnosis, sleep apnea, morbid obesity)? @ -None Was patient admitted / discharged? Hospital course, mention meds given and route, prescriptions, significant lab abnormalities, going to OR and other pertinent info. @ -Discharge patient has no occlusive DVT which is most likely her chronic DVT that she's had. Patient dog was. Patient discharged in stable condition return parameters were discussed. Undiagnosed new problem with uncertain prognosis? @ -No Drug Therapy requiring intensive monitoring for toxicity (Heparin, Nitro, Insulin, Cardizem)? @ -No Were any procedures done? @ -No Diagnosis/symptom? @ -Chronic DVT Acute, or Chronic, or Acute on Chronic? @ -Acute Uncomplicated (without systemic symptoms) or Complicated (systemic symptoms)? @ -Uncomplicated Side effects of treatment? @ -No Exacerbation, Progression, or Severe Exacerbation? @ -No Poses a threat to life or bodily function? How? (Chest pain, [place], [place], pneumonia, PE, COPD, DKA, ARF, appy, cholecystitis, CVA, Diverticulitis, Homicidal, Suicidal, threat to staff... and all critical care pts) @ -No Disposition Clinical Impression: Chronic deep vein thrombosis (DVT) Disposition: HOME SELF-CARE Condition: Stable Instructions (If sedation given, give patient instructions): Deep Vein Thrombosis (ED) Additional Instructions: continue Eliquis as directed.Please return to the Emergency Department if symptoms worsen or any other concerns. Is patient prescribed a controlled substance at d/c from ED?: No Referrals: Debbie Parikh MD [Primary Care Provider] - 1-2 days Time of Disposition: 14:43
--- NOTE | 2022-08-28 13:48 | US ---
EXAMINATION TYPE: US venous doppler duplex LE LT DATE OF EXAM: 08/28/2022 1:36 PM COMPARISON: NONE CLINICAL INDICATION: Female, 57 years old with history of pain; Pt states left leg pain, and bruising after fall/ pt states prior DVT left leg, currently on blood thinners SIDE PERFORMED: Left TECHNIQUE: The lower extremity deep venous system is examined utilizing real time linear array sonog vonda with graded compression, doppler sonography and color-flow sonography. VESSELS IMAGED: Common Femoral Vein Deep Femoral Vein Greater Saphenous Vein * Femoral Vein Popliteal Vein Small Saphenous Vein * Proximal Calf Veins (* superficial vessels) Left Leg: Non-occluding thrombus of unknown age within left popliteal and proximal calf veins IMPRESSION: 1. Findings suggestive of nonoccluding DVT left popliteal and proximal calf veins. No prior exams christ ilable for comparison.
--- NOTE | 2022-08-28 14:24 | XR ---
EXAMINATION TYPE: XR knee complete LT DATE OF EXAM: 08/28/2022 COMPARISON: NONE HISTORY: Pain TECHNIQUE: Three views are submitted. FINDINGS: There is mild hypertrophic change and narrowing of the medial compartment of the knee joint.. Osseou s structures are intact. No acute fracture seen. IMPRESSION: 1. No acute fracture or dislocation.
[2022-08-28 14:57] VITALS: BP 138/92; PULSE 55; RESP 18; TEMP 97.9
== END 2022-08-28 14:57 | disposition home or self-care (01) ==
LOC: EC 11:10
DX: I82.402 Acute embolism and thrombosis of unspecified deep veins of left lower extremity (principal); I10 Essential (primary) hypertension; J44.9 Chronic obstructive pulmonary disease, unspecified; E07.9 Disorder of thyroid, unspecified; F41.9 Anxiety disorder, unspecified; F32.A Depression, unspecified; F17.200 Nicotine dependence, unspecified, uncomplicated; Z79.890 Hormone replacement therapy; Z79.899 Other long term (current) drug therapy; Z79.01 Long term (current) use of anticoagulants
CPT/HCPCS: 99284

== ENCOUNTER → 2022-09-19 | Outpatient (CLI) | payer MEDICARE, OTHER ==
[2022-09-19 10:20] LABS: INR 1.9 (<1.2); Prothrombin Time 18.7 sec (9.0-12.0)
== END | disposition home or self-care (01) ==
LOC: LABWHC1 09:15
PROVIDERS: ATTEND Internal Medicine
DX: I27.24 Chronic thromboembolic pulmonary hypertension (principal)
CPT/HCPCS: 36415; 85610

== ENCOUNTER → 2022-11-13 | Outpatient (CLI) | payer MEDICARE, OTHER ==
[2022-11-13 11:15] LABS: NT-Pro-B-Type Natriuretic Pept 6210 pg/mL
[2022-11-13 11:27] LABS: African American GFR (CKD) 64 (>60 ml/min/1.73 sqM); Anion Gap 10 mmol/L; Blood Urea Nitrogen 24 mg/dL (7-17); Calcium 8.8 mg/dL (8.4-10.2); Carbon Dioxide 26 mmol/L (22-30); Chloride 98 mmol/L (98-107); Glucose 88 mg/dL (74-99); Non-African American GFR(CKD) 56 (>60 ml/min/1.73 sqM); Potassium 3.6 mmol/L (3.5-5.1); Sodium 134 mmol/L (137-145)
== END | disposition home or self-care (01) ==
LOC: LABWHC1 09:17
PROVIDERS: ATTEND Nurse Practitioner Acute Care
DX: I27.24 Chronic thromboembolic pulmonary hypertension (principal); I50.812 Chronic right heart failure
CPT/HCPCS: 36415; 80048; 83880

== ENCOUNTER → 2023-02-15 | Outpatient (CLI) | payer MEDICARE, OTHER ==
--- NOTE | 2023-02-15 12:04 | CT ---
EXAMINATION TYPE: CT chest wo con DATE OF EXAM: 02/15/2023 COMPARISON: 07/29/2022 HISTORY: Centrilobular emphysema CT DLP: 752.4 mGycm High-resolution noncontrast CT of the chest was performed with the patient in the prone and supine po sitions. Lung and mediastinal window settings are submitted. The lungs appear to be well-aerated. I do not see evidence for fibrotic change. There is no eviden ce for bronchiectasis, groundglass infiltrate, nodule or mass. Stable parenchymal scarring or atelect asis right lower lobe and right middle lobe. Mild upper lobe centrilobular emphysema. Prominence of t he pulmonary arteries greatest involving lower lobar components in a patient to has a history of bobbin coil winder winter PE. Correlate for pulmonary arterial hypertension. The heart is mildly enlarged. Median sternotom y changes appreciated. No pleural effusion is identified. I do not see evidence for hilar or mediast inal mass or adenopathy. IMPRESSION: 1. Pulmonary arterial hypertension. 2. Mild centrilobular emphysema.
== END | disposition home or self-care (01) ==
LOC: RADCTMAIN 11:09
PROVIDERS: ATTEND Nurse Practitioner Acute Care
DX: J43.2 Centrilobular emphysema (principal); I27.21 Secondary pulmonary arterial hypertension
CPT/HCPCS: 71250

== ENCOUNTER → 2023-02-22 | Outpatient (CLI) | payer MEDICARE, OTHER ==
[2023-02-22 22:48] LABS: HCT 27.1 % (37.2-46.3); HGB 6.5 d/dL (12.0-15.0); MCH 17.9 pg (27.0-32.0); MCV 74.7 FL (80.0-97.0); Mean Platelet Volume 9.6 FL (9.5-12.2); NRBC Per 100 WBC 0.16 X 10*3/uL (0.00-0.01); Platelet Count 298 X 10*3/uL (140-440); RBC 3.63 X 10*6/uL (4.10-5.20); RDW 21.5 % (11.5-14.5); WBC 6.77 X 10*3/uL (4.50-10.00)
[2023-02-22 23:27] LABS: % Iron Saturation 3.41 (12.00-45.00); Ferritin 19.4 ng/mL (10.0-291.0)
== END | disposition home or self-care (01) ==
LOC: LABWHC1 12:46
PROVIDERS: ATTEND Internal Medicine
DX: D64.9 Anemia, unspecified (principal)
CPT/HCPCS: 36415; 82728; 83540; 83550; 85027

== ENCOUNTER 2023-03-01 14:30 | Emergency (ER) | payer MEDICARE, OTHER ==
[2023-03-01 14:42] VITALS: TEMP 97.7
[2023-03-01 15:26] LABS: INR 1.3 (<1.2); Partial Thromboplastin Time 26.4 sec (22.0-30.0); Prothrombin Time 13.9 sec (10.0-12.5)
[2023-03-01 15:31] LABS: ALT 23 U/L (4-34); AST 53 U/L (14-36); African American GFR (CKD) 58 (>60 ml/min/1.73 sqM); Albumin 4.1 g/dL (3.5-5.0); Alkaline Phosphatase 163 U/L (38-126); Anion Gap 13 mmol/L; Blood Urea Nitrogen 31 mg/dL (7-17); Calcium 9.1 mg/dL (8.4-10.2); Carbon Dioxide 20 mmol/L (22-30); Chloride 98 mmol/L (98-107); Glucose 115 mg/dL (74-99); Magnesium 2.2 mg/dL (1.6-2.3); Non-African American GFR(CKD) 50 (>60 ml/min/1.73 sqM); Phosphorus 3.1 mg/dL (2.5-4.5); Potassium 5.2 mmol/L (3.5-5.1); Sodium 131 mmol/L (137-145); Total Bilirubin 1.3 mg/dL (0.2-1.3); Total Protein 6.4 g/dL (6.3-8.2)
--- NOTE | 2023-03-01 15:40 | XR ---
EXAMINATION TYPE: XR chest 2V DATE OF EXAM: 03/01/2023 3:36 PM COMPARISON: Chest radiographs from 02/03/2023, CT chest 02/15/2023 TECHNIQUE: XR chest 2V Frontal and lateral views of the chest. CLINICAL INDICATION:Female, 57 years old with history of Weakness; FINDINGS: Lungs/Pleura: There is no evidence of pleural effusion, focal consolidation, or pneumothorax. Scarrin g within the right costophrenic angle. Pulmonary vascularity: Unremarkable. Heart/mediastinum: Cardiomediastinal silhouette is enlarged and stable. Prominent of both perihilar regions consistent with known pulmonary arterial hypertension Musculoskeletal: No acute osseous pathology. Midline sternotomy wires are noted and stable. Orthopedi c anchor within the left humeral head. IMPRESSION: Chronic changes without evidence for acute process.
[2023-03-01 16:02] LABS: Anisocytosis Moderate; HCT 24.7 % (34.0-46.0); HGB 7.1 gm/dL (11.4-16.0); Hypochromasia Marked; MCH 19.5 pg (25.0-35.0); MCHC 28.6 g/dL (31.0-37.0); MCV 68.2 fL (80.0-100.0); Mean Platelet Volume 7.3; Microcytosis Marked; Platelet Count 149 k/uL (150-450); Poikilocytosis Slight; RBC 3.62 m/uL (3.80-5.40); RDW 20.3 % (11.5-15.5)
--- NOTE | 2023-03-01 16:14 | ED ---
Weakness HPI - General Source: patient, family, RN notes reviewed Mode of arrival: wheelchair Limitations: no limitations - History of Present Illness MD Complaint: generalized weakness <Kim Dunn - Last Filed: 03/01/23 16:13> <Elle Cha - Last Filed: 03/01/23 22:38> - General Chief complaint: Weakness Stated complaint: low blood count Time Seen by Provider: 03/01/23 16:00 - History of Present Illness Initial comments: This is a 57-year-old female who presents to the emergency department for generalized weakness. States that she had outpatient blood work done demonstrating a hemoglobin of 6.5, and she was instructed to come to the emergency department for evaluation. Denies any blood in her stool. (Kim Dunn) 57-year-old female past medical history of coronary artery disease status post bypass, COPD, hypertension, PE who presents to the emergency Department with abnormal labs. States that she had laboratory studies done at Dr. Herrera's office. She was told that her hemoglobin is 6.5 and that she required blood transfusion. She reports that she has received blood transfusions before in the past due to iron deficiency anemia. She is on iron. Denies any active bleeding. She admits to increased weakness. No nausea or vomiting. No fevers. Denies chest pain. No other alleviating, precipitating or modifying factors (Elle Cha) - Related Data Home Medications Medication Instructions Recorded Confirmed ALPRAZolam 1 mg PO TID PRN 11/17/13 07/29/22 Albuterol Inhaler [Ventolin Hfa 2 puff INHALATION RT-Q6H PRN 04/10/15 07/29/22 Inhaler] Albuterol Nebulized [Ventolin 2.5 mg INHALATION RT-Q4H PRN 04/10/15 07/29/22 Nebulized] ARIPiprazole 5 mg PO DAILY 11/29/21 07/29/22 Fluticasone/Umeclidin/Vilanter 1 puff INHALATION RT-DAILY 11/29/21 07/29/22 [Trelegy Ellipta 100-62.5-25] Furosemide [Lasix] 20 mg PO AC-BID 11/29/21 07/29/22 Levothyroxine Sodium [Levo-T] 37.5 mcg PO DAILY 11/29/21 07/29/22 Levothyroxine Sodium [Synthroid] 50 mcg PO DAILY 11/29/21 07/29/22 Omeprazole [PriLOSEC] 20 mg PO BID 11/29/21 07/29/22 lamoTRIgine 200 mg PO DAILY 11/29/21 07/29/22 modafiniL [Provigil] 200 mg PO DAILY 11/29/21 07/29/22 rOPINIRole HCL [Requip] 0.5 mg PO HS 11/29/21 07/29/22 Metoprolol Succinate [Toprol XL] 50 mg PO DAILY 07/29/22 07/29/22 Topiramate [Topamax] 25 mg PO BID 07/29/22 07/29/22 Previous Rx's Medication Instructions Recorded Apixaban [Eliquis] 5 mg PO BID 30 Days #70 tab 12/01/21 Ipratropium-Albuterol Nebulize 3 ml INHALATION RT-QID #60 each 07/31/22 [Duoneb 0.5 mg-3 mg/3 ml Soln] NIFEdipine XL [Procardia XL] 30 mg PO DAILY #30 tab 07/31/22 predniSONE 10 mg PO DIRECTED #30 tab 07/31/22 Allergies Allergy/AdvReac Type Severity Reaction Status Date / Time No Known Allergies Allergy Verified 09/02/22 09:04 Review of Systems ROS Other: All systems not noted in ROS Statement are negative. <Kim Dunn - Last Filed: 03/01/23 16:13> ROS Other: All systems not noted in ROS Statement are negative. <Elle Cha - Last Filed: 03/01/23 22:38> ROS Statement: Those systems with pertinent positive or pertinent negative responses have been documented in the HPI. Past Medical History Past Medical History: Asthma, COPD, Hypertension, Pulmonary Embolus (PE), Thyroid Disorder Additional Past Medical History / Comment(s): pulmonary hypertension, emphysema History of Any Multi-Drug Resistant Organisms: MRSA Date of last positivie culture/infection: 12/26/19 MDRO Source:: TISSUE Past Surgical History: Orthopedic Surgery Additional Past Surgical History / Comment(s): tubal pregnancies, lt shoulder. pulmonary bloord clots removed Past Anesthesia/Blood Transfusion Reactions: No Reported Reaction Past Psychological History: Anxiety, Depression Smoking Status: Current every day smoker Past Alcohol Use History: None Reported Past Drug Use History: None Reported - Past Family History Sister(s) Family Medical History: Deep Vein Thrombosis (DVT) Father History Unknown: Yes Family Medical History: Coronary Artery Disease (CAD), CVA/TIA, Deep Vein Thrombosis (DVT) Mother History Unknown: Yes Family Medical History: Hypertension <Kim Dunn - Last Filed: 03/01/23 16:13> General Exam Limitations: no limitations <Kim Dunn - Last Filed: 03/01/23 16:13> General appearance: alert, in no apparent distress Head exam: Present: atraumatic, normocephalic, normal inspection Eye exam: Present: normal appearance, PERRL, EOMI. Absent: scleral icterus, conjunctival injection, periorbital swelling ENT exam: Present: normal exam, mucous membranes moist Neck exam: Present: normal inspection. Absent: tenderness, meningismus, lymphadenopathy Respiratory exam: Present: normal lung sounds bilaterally. Absent: respiratory distress, wheezes, rales, rhonchi, stridor Cardiovascular Exam: Present: regular rate, normal rhythm, normal heart sounds. Absent: systolic murmur, diastolic murmur, rubs, gallop, clicks GI/Abdominal exam: Present: soft, normal bowel sounds. Absent: distended, tenderness, guarding, rebound, rigid Extremities exam: Present: normal inspection, full ROM, normal capillary refill. Absent: tenderness, pedal edema, joint swelling, calf tenderness Back exam: Present: normal inspection Neurological exam: Present: alert, oriented X3, CN II-XII intact Psychiatric exam: Present: normal affect, normal mood Skin exam: Present: warm, dry, intact, normal color. Absent: rash <Elle Cha - Last Filed: 03/01/23 22:38> - General Exam Comments Initial Comments: Visual Physical Exam Vital signs reviewed General: Well-appearing, nontoxic, no acute distress. Head: Normocephalic, atraumatic Eyes: PERRLA, EOMI ENT: Airway patent Chest: Nonlabored breathing Skin: No visual rash, normal skin tone Neuro: Alert and oriented 3 Musculoskeletal: No gross abnormalities I performed the QuickNote portion of this chart. Signed Kim Dunn PA-C. (Kim Dunn) Course Vital Signs 03/01/23 03/01/23 03/01/23 14:39 17:30 18:00 Temperature 97.7 F Pulse Rate 53 L 58 L 60 Respiratory 16 16 16 Rate Blood Pressure 153/70 120/67 107/57 O2 Sat by Pulse 99 91 L 93 L Oximetry 03/01/23 18:30 Temperature Pulse Rate 60 Respiratory 18 Rate Blood Pressure 103/64 O2 Sat by Pulse 93 L Oximetry Medical Decision Making - Lab Data Result diagrams: 03/01/23 14:46 03/01/23 14:46 <Kim Dunn - Last Filed: 03/01/23 16:13> - Lab Data Result diagrams: 03/01/23 14:46 03/01/23 14:46 <Elle Cha - Last Filed: 03/01/23 22:38> - Medical Decision Making Was pt. sent in by a medical professional or institution (, PA, COLLAR SEWER, urgent care, hospital, or prison...) When possible be specific @ -No Did you speak to anyone other than the patient for history (EMS, parent, family, police, friend...)? What history was obtained from this source @ -No Did you review nursing and triage notes (agree or disagree)? Why? @ -I reviewed and agree with nursing and triage notes Were old charts reviewed (outside hosp., previous admission, EMS record, old EKG, old radiological studies, urgent care reports/EKG's, prison records)? Report findings @ -All old charts are reviewed as patient is poor historian and cannot provide much history. I did trend the patient's hemoglobin Differential Diagnosis (chest pain, altered mental status, abdominal pain women, abdominal pain men, vaginal bleeding, weakness, fever, dyspnea, syncope, headache, dizziness, GI bleed, back pain, seizure, CVA, palpatations, mental health, musculoskeletal)? @ -Differential Weakness: Hypoglycemia, shock, sepsis, hyponatremia, anemia, infection, MA, ETOH, adverse medicine reaction, overdose, stroke, this is not meant to be an all-inclusive list. EKG interpreted by me (3pts min.). @ -Yes and demonstrates sinus bradycardia cardio with a rate of 58. DC interval 190. QRS 127. QTC of 418. Deep inverted T waves 2, 3, aVF as well as V3 through V6 X-rays interpreted by me (1pt min.). @ -None done CT interpreted by me (1pt min.). @ -None done U/S interpreted by me (1pt. min.). @ -None done What testing was considered but not performed or refused? (CT, X-rays, U/S, labs)? Why? @ -Admission was recommended however patient refused What meds were considered but not given or refused? Why? @ -None Did you discuss the management of the patient with other professionals (professionals i.e. DrMartha, PA, COLL[employer] SE[employer]ER, lab, RT, psych nurse, manager social responsibility, rn renal, teacher, workers' compensation hearings officer, keycase assembler)? Give summary @ -No Was smoking cessation discussed for >3mins.? @ -No Was critical care preformed (if so, how long)? @ -No Were there social determinants of health that impacted care today? How? (Homelessness, low income, unemployed, alcoholism, drug addiction, transportation, low edu. Level, literacy, decrease access to med. care, custodial, rehab)? @ -No Was there de-escalation of care discussed even if they declined (Discuss DNR or withdrawal of care, Hospice)? DNR status @ -No What co-morbidities impacted this encounter? (DM, HTN, Smoking, COPD, CAD, Cancer, CVA, ARF, Chemo, Hep., AIDS, mental health diagnosis, sleep apnea, m orbid obesity)? @ -Iron deficiency anemia, CABG Was patient admitted / discharged? Hospital course, mention meds given and route, prescriptions, significant lab abnormalities, going to OR and other pertinent info. @ -Upon arrival patient was placed into room 26. Thorough history and physical exam was performed. We did repeat patient's labs and her hemoglobin is 7.1. She reports that her facilities operator likes to keep her hemoglobin up above 7. She thinks that since her hemoglobin is 7.1 that she is okay for discharge without transfusion. I recommended admission in order to trend her hemoglobin. Patient reports to weakness which may be improved by a blood transfusion. Patient understands this however she would like to go home at this time. She is aware of the risks of leaving. States that she would prefer to follow up with her own care team in the outpatient setting. I did instruct the patient that she has strict return parameters. For which she understood. Patient discharged home with a guarded prognosis Undiagnosed new problem with uncertain prognosis? @ -No Drug Therapy requiring intensive monitoring for toxicity (Heparin, Nitro, Insulin, Cardizem)? @ -No Were any procedures done? @ -No Diagnosis/symptom? @ -Chronic anemia, chronic iron deficiency Acute, or Chronic, or Acute on Chronic? @ -Chronic Uncomplicated (without systemic symptoms) or Complicated (systemic symptoms)? @ -Complicated Side effects of treatment? @ -No Exacerbation, Progression, or Severe Exacerbation? @ -No Poses a threat to life or bodily function? How? (Chest pain, USA, MA, pneumonia, PE, COPD, DKA, ARF, appy, cholecystitis, CVA, Diverticulitis, Homicidal, Suicidal, threat to staff... and all critical care pts) @ -No (Elle Cha) - Lab Data Lab Results 03/01/23 03/01/23 03/01/23 Range/Units 13:23 14:46 14:46 WBC 5.2 (3.8-10.6) k/uL RBC 3.62 L (3.80-5.40) m/uL Hgb 7.1 L (11.4-16.0) gm/dL Hct 24.7 L (34.0-46.0) % MCV 68.2 L (80.0-100.0) fL MCH 19.5 L (25.0-35.0) pg MCHC 28.6 L (31.0-37.0) g/dL RDW 20.3 H (11.5-15.5) % Plt Count 149 L (150-450) k/uL MPV 7.3 Neutrophils % (Manual) 69 % Lymphocytes % (Manual) 24 % Monocytes % (Manual) 6 % Eosinophils % (Manual) 1 % Basophils % (Manual) 1 % Neutrophils # (Manual) 3.59 (1.3-7.7) k/uL Lymphocytes # (Manual) 1.25 (1.0-4.8) k/uL Monocytes # (Manual) 0.31 (0-1.0) k/uL Eosinophils # (Manual) 0.05 (0-0.7) k/uL Basophils # (Manual) 0.05 (0-0.2) k/uL Nucleated RBCs 1 H (0-0) /100 WBC Manual Slide Review Performed Hypochromasia Marked Poikilocytosis Slight Anisocytosis Moderate Microcytosis Marked PT 13.9 H (10.0-12.5) sec INR 1.3 H (<1.2) APTT 26.4 (22.0-30.0) sec Sodium (137-145) mmol/L Potassium (3.5-5.1) mmol/L Chloride (98-107) mmol/L Carbon Dioxide (22-30) mmol/L Anion Gap mmol/L BUN (7-17) mg/dL Creatinine (0.52-1.04) mg/dL Est GFR (CKD-EPI)AfAm (>60 ml/min/1.73 sqM) Est GFR (CKD-EPI)NonAf (>60 ml/min/1.73 sqM) Glucose (74-99) mg/dL Plasma Lactic Acid Amador 1.4 (0.7-2.0) mmol/L Calcium (8.4-10.2) mg/dL Phosphorus (2.5-4.5) mg/dL Magnesium (1.6-2.3) mg/dL Total Bilirubin (0.2-1.3) mg/dL AST (14-36) U/L ALT (4-34) U/L Alkaline Phosphatase (38-126) U/L Troponin I (0.000-0.034) ng/mL Total Protein (6.3-8.2) g/dL Albumin (3.5-5.0) g/dL Blood Type Blood Type Recheck Bld Type Recheck Status Antibody Screen Spec Expiration Date 03/01/23 03/01/23 03/01/23 Range/Units 14:46 14:46 14:54 WBC (3.8-10.6) k/uL RBC (3.80-5.40) m/uL Hgb (11.4-16.0) gm/dL Hct (34.0-46.0) % MCV (80.0-100.0) fL MCH (25.0-35.0) pg MCHC (31.0-37.0) g/dL RDW (11.5-15.5) % Plt Count (150-450) k/uL MPV Neutrophils % (Manual) % Lymphocytes % (Manual) % Monocytes % (Manual) % Eosinophils % (Manual) % Basophils % (Manual) % Neutrophils # (Manual) (1.3-7.7) k/uL Lymphocytes # (Manual) (1.0-4.8) k/uL Monocytes # (Manual) (0-1.0) k/uL Eosinophils # (Manual) (0-0.7) k/uL Basophils # (Manual) (0-0.2) k/uL Nucleated RBCs (0-0) /100 WBC Manual Slide Review Hypochromasia Poikilocytosis Anisocytosis Microcytosis PT (10.0-12.5) sec INR (<1.2) APTT (22.0-30.0) sec Sodium 131 L (137-145) mmol/L Potassium 5.2 H (3.5-5.1) mmol/L Chloride 98 (98-107) mmol/L Carbon Dioxide 20 L (22-30) mmol/L Anion Gap 13 mmol/L BUN 31 H (7-17) mg/dL Creatinine 1.20 H (0.52-1.04) mg/dL Est GFR (CKD-EPI)AfAm 58 (>60 ml/min/1.73 sqM) Est GFR (CKD-EPI)NonAf 50 (>60 ml/min/1.73 sqM) Glucose 115 H (74-99) mg/dL Plasma Lactic Acid Amador (0.7-2.0) mmol/L Calcium 9.1 (8.4-10.2) mg/dL Phosphorus 3.1 (2.5-4.5) mg/dL Magnesium 2.2 (1.6-2.3) mg/dL Total Bilirubin 1.3 (0.2-1.3) mg/dL AST 53 H (14-36) U/L ALT 23 (4-34) U/L Alkaline Phosphatase 163 H (38-126) U/L Troponin I <0.012 (0.000-0.034) ng/mL Total Protein 6.4 (6.3-8.2) g/dL Albumin 4.1 (3.5-5.0) g/dL Blood Type A Positive Blood Type Recheck A Pos Bld Type Recheck Status No Antibody Screen NEGATIVE Spec Expiration Date 03/04/20232353 Disposition <Kim Dunn Last Filed: 03/01/23 16:13> Is patient prescribed a controlled substance at d/c from ED?: No Time of Disposition: 18:32 <Elle Cha - Last Filed: 03/01/23 22:38> Clinical Impression: Anemia Disposition: HOME SELF-CARE Condition: Serious Instructions (If sedation given, give patient instructions): Anemia (ED) Additional Instructions: I recommended admission. If you have any worsening symptoms, please return for admission Referrals: Debbie Parikh MD [Primary Care Provider] - 1-2 days
[2023-03-01 17:16] LABS: Basophils # (M) 0.05 k/uL (0-0.2); Eosinophils # (M) 0.05 k/uL (0-0.7); Neutrophils % (M) 69 %; Nucleated Red Blood Cells 1 /100 WBC (0-0); Total Cells Counted 200
[2023-03-01 17:17] LABS: Lymphocytes # (M) 1.25 k/uL (1.0-4.8); Monocytes # (M) 0.31 k/uL (0-1.0); Neutrophils # (M) 3.59 k/uL (1.3-7.7); WBC 5.2 k/uL (3.8-10.6)
[2023-03-01 19:11] VITALS: BP 103/64; PULSE 60; RESP 18
== END 2023-03-01 19:01 | disposition home or self-care (01) ==
LOC: EC 14:30
DX: D50.9 Iron deficiency anemia, unspecified (principal); R00.1 Bradycardia, unspecified; I10 Essential (primary) hypertension; J43.9 Emphysema, unspecified; E07.9 Disorder of thyroid, unspecified; F32.A Depression, unspecified; F41.9 Anxiety disorder, unspecified; F17.200 Nicotine dependence, unspecified, uncomplicated; Z79.890 Hormone replacement therapy; Z79.899 Other long term (current) drug therapy
CPT/HCPCS: 36415; 71046; 80053; 83605; 83735; 84100; 84484; 85025; 85610; 85730; 86850; 86900; 86901; 93005; 99285

== ENCOUNTER → 2023-04-10 | Outpatient (CLI) | payer MEDICARE, OTHER ==
[2023-04-10 13:06] LABS: African American GFR (CKD) 54 (>60 ml/min/1.73 sqM); Anion Gap 13 mmol/L; Blood Urea Nitrogen 28 mg/dL (7-17); Calcium 9.2 mg/dL (8.4-10.2); Carbon Dioxide 24 mmol/L (22-30); Chloride 98 mmol/L (98-107); Glucose 90 mg/dL (74-99); Non-African American GFR(CKD) 47 (>60 ml/min/1.73 sqM); Potassium 4.4 mmol/L (3.5-5.1); Sodium 135 mmol/L (137-145)
[2023-04-10 13:08] LABS: NT-Pro-B-Type Natriuretic Pept 5720 pg/mL
== END | disposition home or self-care (01) ==
LOC: LABWHC1 11:04
PROVIDERS: ATTEND Internal Medicine
DX: I27.24 Chronic thromboembolic pulmonary hypertension (principal); I50.9 Heart failure, unspecified; R06.09 Other forms of dyspnea
CPT/HCPCS: 36415; 80048; 83880

== ENCOUNTER → 2023-04-24 | Outpatient (CLI) | payer MEDICARE, OTHER ==
[2023-04-24 16:01] LABS: INR 1.3 (<1.2); Prothrombin Time 13.2 sec (10.0-12.5)
[2023-04-24 16:11] LABS: ALT 20 U/L (4-34); African American GFR (CKD) 58 (>60 ml/min/1.73 sqM); Albumin 4.3 g/dL (3.5-5.0); Albumin/Globulin Ratio 1.7; Anion Gap 13 mmol/L; Blood Urea Nitrogen 21 mg/dL (7-17); Calcium 9.3 mg/dL (8.4-10.2); Carbon Dioxide 26 mmol/L (22-30); Chloride 100 mmol/L (98-107); Globulin 2.5 g/dL; Glucose 88 mg/dL (74-99); Non-African American GFR(CKD) 50 (>60 ml/min/1.73 sqM); Sodium 139 mmol/L (137-145); Total Protein 6.8 g/dL (6.3-8.2)
[2023-04-24 16:12] LABS: Anisocytosis Marked; HCT 39.5 % (34.0-46.0); Hypochromasia Marked; MCH 23.1 pg (25.0-35.0); MCHC 27.9 g/dL (31.0-37.0); Mean Platelet Volume 7.7; Microcytosis Moderate; Platelet Count 160 k/uL (150-450); RBC 4.75 m/uL (3.80-5.40); RDW 24.8 % (11.5-15.5); WBC 6.9 k/uL (3.8-10.6)
[2023-04-24 16:16] LABS: MCV 83.1 fL (80.0-100.0); NT-Pro-B-Type Natriuretic Pept 4250 pg/mL
[2023-04-24 16:22] LABS: AST 41 U/L (14-36)
[2023-04-24 16:23] LABS: Alkaline Phosphatase 144 U/L (38-126)
== END | disposition home or self-care (01) ==
LOC: LABWHC1 15:17
DX: I27.24 Chronic thromboembolic pulmonary hypertension (principal); I50.9 Heart failure, unspecified; R06.09 Other forms of dyspnea
CPT/HCPCS: 36415; 80053; 83880; 85027; 85610

== ENCOUNTER → 2023-08-20 | Outpatient (CLI) | payer MEDICARE, OTHER ==
[2023-08-20 20:11] LABS: HCT 46.2 % (37.2-46.3); HGB 14.8 g/dL (12.0-15.0); MCH 28.5 pg (27.0-32.0); Mean Platelet Volume 9.4 FL (9.5-12.2); NRBC Per 100 WBC 0 X 10*3/uL (0.00-0.01); Platelet Count 247 X 10*3/uL (140-440); RBC 5.19 X 10*6/uL (4.10-5.20); WBC 8.26 X 10*3/uL (4.50-10.00)
[2023-08-20 22:30] LABS: NT-Pro-B-Type Natriuretic Pept 1864 pg/mL (0-125)
[2023-08-20 22:35] LABS: ALT 26 U/L (8-44); AST 31 U/L (13-35); Albumin 4.5 g/dL (3.8-4.9); Albumin/Globulin Ratio 1.88 Ratio (1.60-3.17); Alkaline Phosphatase 213 U/L (41-126); BUN/Creat Ratio 31.91 Ratio (12.00-20.00); Blood Urea Nitrogen 35.1 mg/dL (9.0-27.0); Calcium 9.8 mg/dL (8.7-10.3); Carbon Dioxide 23.3 mmol/L (21.6-31.8); Chloride 103 mmol/L (96-109); Globulin 2.4 g/dL (1.6-3.3); Glucose 69 mg/dL (70-110); Potassium 4.3 mmol/L (3.5-5.5); Sodium 142 mmol/L (135-145); Total Bilirubin 0.2 mg/dL (0.3-1.2); Total Protein 6.9 g/dL (6.2-8.2)
== END | disposition home or self-care (01) ==
LOC: LABWHC1 16:09
PROVIDERS: ATTEND Nurse Practitioner Acute Care
DX: I50.9 Heart failure, unspecified (principal); D64.9 Anemia, unspecified; R06.09 Other forms of dyspnea
CPT/HCPCS: 36415; 80053; 83880; 85027

== ENCOUNTER → 2024-01-26 | Outpatient (CLI) | payer MEDICARE, OTHER ==
[2024-01-27 07:30] LABS: NT-Pro-B-Type Natriuretic Pept 1431 pg/mL (0-125)
[2024-01-27 09:57] LABS: BUN/Creat Ratio 24.88 Ratio (12.00-20.00); Blood Urea Nitrogen 39.8 mg/dL (9.0-27.0); Calcium 9.1 mg/dL (8.7-10.3); Carbon Dioxide 22.6 mmol/L (21.6-31.8); Chloride 99 mmol/L (96-109); Glucose 103 mg/dL (70-110); Potassium 4.3 mmol/L (3.5-5.5); Sodium 137 mmol/L (135-145)
== END | disposition home or self-care (01) ==
LOC: LABWHC1 11:15
DX: I27.24 Chronic thromboembolic pulmonary hypertension (principal); N28.9 Disorder of kidney and ureter, unspecified
CPT/HCPCS: 36415; 80048; 83880

== ENCOUNTER → 2024-06-30 | Outpatient (CLI) | payer MEDICARE, OTHER ==
--- NOTE | 2024-06-30 12:41 | CT ---
EXAMINATION TYPE: CT angio chest DATE OF EXAM: 06/30/2024 12:21 PM COMPARISON: None. CLINICAL INDICATION: Female, 58 years old with history of R06.02 cough, cough, SOB TECHNIQUE: Axial images were obtained at 5 mm thick sections. Reconstructed [facility] in the coronal plane. Contrast used:100 mL of Isovue 370 with IV Contrast, (none if empty) Oral contrast used: (none if empty) CT DLP: 373.7 mGycm, Automated exposure control for dose reduction was used. FINDINGS: Portion of the thyroid visualized is normal. There is a 0.8 cm pleural thickening along the posterior lateral right midlung. Series 8 image 59. There is diffuse soft tissue thickening surrounding the vascular structures in the lower lobes. This extends from the bilateral infrahilar regions. Some suprahilar thickening is also present on the left . No enlarged mediastinal or hilar adenopathy is evident. Multiple scattered small lymph nodes are in the mediastinum. The ascending aorta diameter at the level of the main pulmonary artery is 3.6 cm. T main pulmonary artery diameter at the bifurcation is 3.[address] sections are obtained through the upper abdomen. IMPRESSION: 1. No acute pulmonary embolism. 2. Extensive diffuse soft tissue swelling surrounding the lower lobe pulmonary arteries greater on th e right. Some extension in the left suprahilar region is also present. Additional workup is recommend ed [facility], , 06/30/2024 12:39 PM
== END | disposition home or self-care (01) ==
LOC: RADCTMAIN 11:44
PROVIDERS: ATTEND Internal Medicine Hematology & Oncology
DX: R06.02 Shortness of breath (principal); M79.89 Other specified soft tissue disorders
CPT/HCPCS: 71275; Q9967

== ENCOUNTER → 2024-09-12 | Outpatient (CLI) | payer MEDICARE, OTHER ==
[2024-09-12 08:43] LABS: INR 2.6 (<1.2); Prothrombin Time 26.3 sec (10.0-12.5)
== END | disposition home or self-care (01) ==
LOC: LABWHC1 07:44
PROVIDERS: ATTEND Internal Medicine
DX: I27.24 Chronic thromboembolic pulmonary hypertension (principal)
CPT/HCPCS: 36415; 85610